=== PATIENT | male | born 1970 | race Caucasian/White ===

== ENCOUNTER 2022-10-17 06:34 | Outpatient (RCR) | payer OTHER, SELFPAY | END 2022-11-10 23:59 | disposition home or self-care (01) | LOC: SPT 06:34 | PROVIDERS: Visit Provider Family Medicine | DX: M25.512 Pain in left shoulder (principal) | CPT/HCPCS: 97110; 97162 ==

== ENCOUNTER 2022-11-11 06:00 | Outpatient (RCR) | payer OTHER, SELFPAY | END 2022-11-14 23:59 | disposition home or self-care (01) | LOC: SPT 06:00 | PROVIDERS: Visit Provider Family Medicine | DX: M25.511 Pain in right shoulder (principal) | CPT/HCPCS: 97110 ==

== ENCOUNTER 2023-03-18 13:42 | Emergency (ER) | payer OTHER, SELFPAY ==
[2023-03-18 14:12] VITALS: BP 128/80; PULSE 91; RESP 16; TEMP 36.6; O2SAT 97; BMI 38.9
[2023-03-18 14:55] LABS: Basophils % 0.5 %; Eosinophils # 0.2 10^3/uL (0.0-0.8); Eosinophils % 1.7 %; Hematocrit 49.7 % (37-53); Lymphocytes # 1.8 10^3/uL (0.8-4.8); Lymphocytes % 20.6 %; Mean Corpuscular HGB Conc 33.2 g/dL (30-55); Mean Corpuscular Hemoglobin 30.8 pg (27-33); Mean Corpuscular Volume 92.9 fl (82-101); Mean Platelet Volume 9.3 fL (7.4-10.4); Monocytes # 1.1 10^3/uL (0.2-0.9); Monocytes % 12.2 %; Neutrophils # 5.74 10^3/uL (1.8-7.7); Neutrophils % 64.8 %; Nucleated Red Blood Cells % 0 %; Platelet Count 237 10^3/cmm (157-399); Red Blood Count 5.35 10^6/uL (3.85-5.65); Red Cell Distribution Width 12.4 % (12.1-15.1); White Blood Count 8.85 10^3/uL (3.29-11.43)
[2023-03-18 15:15] LABS: Alanine Aminotransferase 30 U/L (0-41); Albumin Level 4.2 g/dL (3.5-5.2); Alkaline Phosphatase 62 U/L (40-130); Aspartate Amino Transferase 16 U/L (0-40); Blood Urea Nitrogen 17 mg/dL (6-20); Calcium 9.5 mg/dL (8.5-10.5); Carbon Dioxide 26 mmol/L (22-29); Chloride 101 mmol/L (98-107); Creatinine Clr Calc Pharmacy 124.0495; Glucose 79 mg/dL (65-115); Lipase 26 U/L (13-60); Osmolality Calculated 286 mOsm/kg (285-295); Sodium 138 mmol/L (136-145); Total Bilirubin 0.5 mg/dL (0.15-1.2); Total Protein 7.2 g/dL (6.6-8.7)
--- NOTE | 2023-03-18 16:19 | ECG_ITS ---
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 Measurements Intervals [place] Rate: 82 P: 49 SD: 165 QRS: 36 QRSD: 94 T: 46 QT: 366 QTc: 429 Interpretive Statements SINUS RHYTHM NONSPECIFIC T-WAVE ABNORMALITY No previous ECG available for comparison Electronically Signed On 03-18-2023 23:10:40 CLINICAL APPLICATION SPECIALIST by Marcus Mckeon M.D. [id number]
--- NOTE | 2023-03-18 16:23 | W.ED.DIZZY ---
HPI - Dizziness General: Chief Complaint: Dizziness Stated Complaint: nausea and dizzy Time Seen by Provider: 03/18/23 16:07 Source: patient Mode of arrival: ambulatory History of Present Illness: HPI Narrative: 52-year-old male presents emergency room with complaints of dizziness worse when he gets up or moves around better when he Still is quite a bit worse yesterday had a spinning vertiginous sensation. No nausea or vomiting. No difficulty speech swelling no localizing deficits no vision disturbances. He has had problems with dizziness and ear problems in the past. MD elicited complaint: dizziness Pertinent past history: inner ear problems Onset (ago): day(s) Severity: moderate Description: room spinning Associated symptoms: Denies change in hearing, chest pain, chills, cough, diaphoresis, ear discharge, ear pressure, fevers/chills, headache(s), malaise, nausea, nasal congestion, palpitations, rash, short of breath, syncope, tinnitus, vomiting or weakness Associated neuro symptoms: Deny confusion, difficulty speaking, dysphagia, diplopia, extremity weakness, facial numbness, facial weakness, gait changes, numbness in extremities or visual changes Review of Systems Const: Denies: fever(s), chills, malaise or diaphoresis ENMT: Denies: ear discharge, change in hearing, tinnitus or nasal congestion Card: Denies: chest pain, palpitations or syncope Resp: Denies: dyspnea GI: Denies: abdominal pain, nausea, vomiting or dysphagia : Denies: dysuria, urinary frequency or urinary urgency Musc: Denies: neck pain or back pain Skin/Breast: Denies: rash Neuro: Denies: headache(s), numbness in extremities or confusion Physical Exam Const: GENERAL APPEARANCE: cooperative and comfortable ORIENTATION/CONSCIOUSNESS: Yes awake, Yes oriented to person, Yes oriented to place and Yes oriented to time HENMT: COMMON NORMALS: normocephalic, atraumatic and hearing grossly normal bilaterally HEAD & SCALP: normocephalic and atraumatic Resp: COMMON NORMALS: normal respiratory effort, No retractions, No use of accessory muscles and clear to auscultation bilaterally AUSCULTATION: clear to auscultation bilaterally Cardio: COMMON NORMALS: regular rate, regular rhythm and No murmurs present (Cardio) RATE: regular rate RHYTHM: regular rhythm GI: COMMON NORMALS: Soft to palpation and No hepatosplenomegaly present AUSCULTATION: Yes normoactive bowel sounds PALPATION: Yes Soft to palpation, No Tenderness to palpation present (GI), No Guarding due to palpation present (GI) and Yes No hepatosplenomegaly present Extremity: COMMON NORMALS: normal to inspection, capillary refill normal, no clubbing, cyanosis or edema, no calf tenderness and no pedal edema Neuro: SENSORIUM/ORIENTATION: Yes oriented to person, Yes oriented to place and Yes oriented to time Skin: COMMON NORMALS: no rashes or lesions noted GENERAL SKIN EXAM: no rashes or lesions noted Course Vital Signs: Vital signs: Vital Signs Temperature 97.8 F 03/18/23 14:12 Pulse Rate 91 03/18/23 14:12 Respiratory Rate 16 03/18/23 14:12 Blood Pressure 128/80 03/18/23 14:12 Pulse Oximetry 97 03/18/23 14:12 Oxygen Delivery Me thod Room Air 03/18/23 14:12 MDM - Dizziness Medical Decision Making Normal exam with no focal neurologic deficits. He is feeling better after the IV fluids and Ativan we will discharge patient home meclizine use as needed for dizziness if that fails he can use Ativan as needed for persistent follow-up with his primary care doctor to consider further evaluation. Medical Records I reviewed the patient's medical records. Lab Data I reviewed the patient's lab results. 03/18/23 14:45 03/18/23 14:45 Laboratory Results WBC 8.85 10^3/uL (3.29-11.43) 03/18/23 14:45 RBC 5.35 10^6/uL (3.85-5.65) 03/18/23 14:45 Hgb 16.50 g/dL (11.27-16.99) 03/18/23 14:45 Hct 49.7 % (37-53) 03/18/23 14:45 MCV 92.9 fl (82-101) 03/18/23 14:45 MCH 30.8 pg (27-33) 03/18/23 14:45 MCHC 33.2 g/dL (30-55) 03/18/23 14:45 RDW 12.4 % (12.1-15.1) 03/18/23 14:45 Plt Count 237 10^3/cmm (157-399) 03/18/23 14:45 MPV 9.3 fL (7.4-10.4) 03/18/23 14:45 Neut % (Auto) 64.8 % 03/18/23 14:45 Lymph % (Auto) 20.6 % 03/18/23 14:45 [place] % (Auto) 12.2 % 03/18/23 14:45 Eos % (Auto) 1.7 % 03/18/23 14:45 Baso % (Auto) 0.5 % 03/18/23 14:45 Neut # (Auto) 5.74 10^3/uL (1.8-7.7) 03/18/23 14:45 Lymph # (Auto) 1.8 10^3/uL (0.8-4.8) 03/18/23 14:45 [place] # (Auto) 1.1 10^3/uL (0.2-0.9) H 03/18/23 14:45 Eos # (Auto) 0.2 10^3/uL (0.0-0.8) 03/18/23 14:45 Baso # (Auto) 0.0 10^3/uL (0.0-0.1) 03/18/23 14:45 Nucleated RBC % (auto) 0 % 03/18/23 14:45 Nucleated RBCs # 0.0 /100WBC 03/18/23 14:45 Sodium 138 mmol/L (136-145) 03/18/23 14:45 Potassium 4.0 mmol/L (3.5-5.1) 03/18/23 14:45 Chloride 101 mmol/L (98-107) 03/18/23 14:45 Carbon Dioxide 26 mmol/L (22-29) 03/18/23 14:45 Anion Gap 15.0 (5-19) 03/18/23 14:45 BUN 17 mg/dL (6-20) 03/18/23 14:45 Creatinine 0.9 mg/dL (0.7-1.2) 03/18/23 14:45 GFR Calculation 89.0 mL/min (90-130) L 03/18/23 14:45 Glucose 79 mg/dL (65-115) 03/18/23 14:45 Calculated Osmolality 286 mOsm/kg (285-295) 03/18/23 14:45 Calcium 9.5 mg/dL (8.5-10.5) 03/18/23 14:45 Total Bilirubin 0.5 mg/dL (0.15-1.2) 03/18/23 14:45 AST 16 U/L (0-40) 03/18/23 14:45 ALT 30 U/L (0-41) 03/18/23 14:45 Alkaline Phosphatase 62 U/L (40-130) 03/18/23 14:45 Total Protein 7.2 g/dL (6.6-8.7) 03/18/23 14:45 Albumin 4.2 g/dL (3.5-5.2) 03/18/23 14:45 Globulin 3.0 g/dL (1.3-4.6) 03/18/23 14:45 Lipase 26 U/L (13-60) 03/18/23 14:45 No radiology studies performed this visit Discharge Plan Discharge Patient Disposition: Home Clinical Impression: Labyrinthitis Condition: Stable Prescriptions: New meclizine 25 mg tablet 25 mg PO QID PRN (Reason: dizziness) Qty: 20 0RF Ativan 2 mg tablet 2 mg PO Q6H PRN (Reason: dizziness) Qty: 14 0RF No Action atorvastatin 80 mg Tablet 80 mg PO QPM citalopram 40 mg Tablet 40 mg PO DAILY glipizide 10 mg Tablet 10 mg PO BID fexofenadine 180 mg Tablet 180 mg PO DAILY ascorbic acid (vitamin C) 500 mg Tablet 500 mg PO DAILY tamsulosin 0.4 mg Capsule 0.4 mg PO QPM ropinirole 2 mg Tablet 2 mg PO BEDTIME omeprazole 20 mg Capsule,Delayed Release(Dr/Ec) 20 mg PO QAM azelastine 137 mcg (0.1 %) Aerosol,[place] 1 spray INTRANASAL BID lisinopril 40 mg Tablet 20 mg PO DAILY fluticasone propionate 50 mcg/actuation [place],Suspension 2 spray INTRANASAL DAILY Rx Instructions: administer into each nostril ezetimibe 10 mg Tablet 10 mg PO DAILY Cinnamon 500 mg Capsule 500 mg PO DAILY Vitamin D3 25 mcg (1,000 unit) Tablet 25 mcg PO DAILY apple cider vinegar 300 mg Tablet 300 mg PO DAILY alogliptin 25 mg Tablet 25 mg PO DAILY empagliflozin 25 mg Tablet 25 mg PO DAILY magnesium oxide 400 mg magnesium Tablet 400 mg PO DAILY turmeric 400 mg Capsule 400 mg PO DAILY Discharge Orders: Discharge ED (Routine); Ordered 03/18/23 Ordered By: Michael Iqbal Referrals: Aura Mendez MD [Primary Care Provider] - Discharge Diet: Usual diet Discharge Activity: Resume usual activity Patient Instructions: Labyrinthitis (ED), Opioid Safety, Pain Management Activity Restrictions/Additional Instructions: Thank you for choosing [facility] for your healthcare needs today. Please realize this is an emergency room and that we are providing you with a medical screening exam and this may not be complete and all inclusive of all the testing and or work up that you may need to determine your ailment or severity of your illness. It is very important that you follow up as instructed or that you return to the Emergency Department should you have concerns or if your condition changes or worsens in any way. If symptoms persist follow-up with your primary care physician Coding Level of Care Code ED Linseed Oil Press Tender for Vishnu Daugherty
[2023-03-18] MEDS: LORazepam 2 mg Tablet PO (17:17)
[2023-03-18] MEDS: sodium chloride 0.9% 1,000 ML 999 ML IV (17:17)
== END 2023-03-18 18:38 | disposition home or self-care (01) ==
PROVIDERS: Emergency Medicine; Emergency Provider Family Medicine; PCP Family Medicine
DX: H83.09 Labyrinthitis, unspecified ear (principal); Z79.84 Long term (current) use of oral hypoglycemic drugs
CPT/HCPCS: 36415; 80053; 83690; 85025; 93005; 99284; J7030

== ENCOUNTER 2023-12-31 10:20 | Emergency (ER) | payer OTHER, SELFPAY ==
[2023-12-31 10:51] VITALS: BP 137/70; PULSE 108; RESP 18; TEMP 36.8; O2SAT 97; BMI 24.7
--- NOTE | 2023-12-31 16:57 | CTR_ITS ---
PROCEDURE INFORMATION: Exam: CT Abdomen And Pelvis Without Contrast Exam date and time: 12/31/2023 5:08 PM Age: 53 years old Clinical indication: Abdominal pain; Other: Llq; Additional info: Left lower abd mass TECHNIQUE: Imaging protocol: Computed tomography of the abdomen and pelvis without contrast. Radiation optimization: All CT scans at this facility use at least one of these dose optimization techniques: automated exposure control; mA and/or kV adjustment per patient size (includes targeted exams where dose is matched to clinical indication); or iterative reconstruction. COMPARISON: No relevant prior studies available. RADIATION DOSE METRICS: Total DLP (mGy-cm): 1552.66 FINDINGS: Lungs: The lung bases are clear. Heart: Heart size is within normal limits. There is no pericardial effusion or pericardial thickening. Diaphragm: Mild elevation of the left hemidiaphragm. Liver: There is diffuse decreased attenuation of the hepatic parenchyma consistent with fatty infiltration. Areas of sparing are noted. The liver is otherwise normal. There are no hepatic masses identified. Gallbladder and biliary ducts: The gallbladder is contracted. There is no ductal dilatation. Pancreas: The pancreas is normal. Spleen: The spleen is normal. Adrenal glands: The adrenal glands are normal. Kidneys and ureters: Punctate nonobstructing right upper pole renal calculus. Punctate left mid renal calculus. No other renal calcifications are seen. There is no hydronephrosis. Stomach and bowel: Mild colonic diverticulosis without diverticulitis. There is no large or small bowel obstruction. There is no evidence of bowel wall thickening. Appendix: A normal appendix is identified. Intraperitoneal space: No inflammatory changes are identified. There is no free fluid or fluid collection seen. There is no pneumoperitoneum. Vasculature: The aorta is normal in course and caliber. No significant atherosclerotic calcifications are present. Lymph nodes: No enlarged lymph nodes are identified. Urinary bladder: The bladder is unremarkable. Reproductive: The prostate is grossly unremarkable. Bones/joints: No acute osseous abnormalities are seen. Soft tissues: [id number]-[id number] left inguinal hernia containing fat and a short segment of proximal sigmoid colon. No inflammatory changes or fluid within the hernia sac. Small right inguinal hernia containing only fat. Tiny periumbilical hernia containing only fat. CT/CT abdomen pelvis wo con [id number] IMPRESSION: 1. [id number] left inguinal hernia containing fat and a short segment of proximal sigmoid colon. No inflammatory changes or fluid within the hernia sac. 2. No acute intra-abdominal or pelvic process. 3. Other nonemergent findings above.
--- NOTE | 2023-12-31 16:58 | ED_ITS ---
HPI - Male Genitourinary General: Chief complaint: Urogenital-Male Stated complaint: groin pain Time Seen by Provider: 12/31/23 16:46 Source: patient and family Mode of arrival: ambulatory Limitations: no limitations History of Present Illness: This patient was directed to the emergency department from the [place] clinic. He presented there initially today because of a intermittent left lower abdominal d iscomfort that has been intermittently present for approximately 3 weeks. He was evaluated and referred to the emergency department. As noted he has left lower quadrant abdominal pain and sometimes he feels like there is a knot in the region that comes and goes. He does not not give any history of an inciting event such as lifting twisting turning bending exercises etc. He says that his urine habits and his bowel habits have not been affected. He states that sometimes coughing makes his discomfort worse. He denies any prior abdominal surgeries. He denies any blood in his stools black tarry stools. He denies any history of kidney stones pain in his scrotum pain in his testes etc. No urethral discharge. Otherwise he takes all his usual prescribed medicines. He has not had any fevers or chills nausea vomiting or diarrhea. Associated symptoms: Deny dysuria, nausea or vomiting Related Data Home Medications Medication Instructions Recorded Confirmed alogliptin 25 mg tablet 25 mg PO DAILY 03/18/23 03/18/23 apple cider vinegar 300 mg tablet 300 mg PO DAILY 03/18/23 03/18/23 ascorbic acid (vitamin C) 500 mg 500 mg PO DAILY 03/18/23 03/18/23 tablet atorvastatin 80 mg tablet 80 mg PO QPM 03/18/23 03/18/23 azelastine 137 mcg (0.1 %) nasal 1 spray intranasal BID 03/18/23 03/18/23 spray cholecalciferol (vitamin D3) 25 25 mcg PO DAILY 03/18/23 03/18/23 mcg (1,000 unit) tablet (Vitamin D3) cinnamon bark 500 mg capsule 500 mg PO DAILY 03/18/23 03/18/23 (Cinnamon) citalopram 40 mg tablet 40 mg PO DAILY 03/18/23 03/18/23 empagliflozin 25 mg tablet 25 mg PO DAILY 03/18/23 03/18/23 ezetimibe 10 mg tablet 10 mg PO DAILY 03/18/23 03/18/23 fexofenadine 180 mg tablet 180 mg PO DAILY 03/18/23 03/18/23 fluticasone propionate 50 2 spray intranasal DAILY 03/18/23 03/18/23 mcg/actuation nasal spray,suspension glipizide 10 mg tablet 10 mg PO BID 03/18/23 03/18/23 lisinopril 40 mg tablet 20 mg PO DAILY 03/18/23 03/18/23 magnesium oxide 400 mg PO DAILY 03/18/23 03/18/23 omeprazole 20 mg capsule,delayed 20 mg PO QAM 03/18/23 03/18/23 release ropinirole 2 mg tablet 2 mg PO BEDTIME 03/18/23 03/18/23 tamsulosin 0.4 mg capsule 0.4 mg PO QPM 03/18/23 03/18/23 turmeric 400 mg capsule 400 mg PO DAILY 03/18/23 03/18/23 Previous Rx's Medication Instructions Recorded lorazepam 2 mg tablet (Ativan) 2 mg PO Q6H PRN dizziness #14 tabs 03/18/23 meclizine 25 mg tablet 25 mg PO QID PRN dizziness #20 tabs 03/18/23 Allergies Allergy/AdvReac Type Severity Reaction Status Date / Time Penicillins Allergy ALGY-Anaphy Verified 03/18/23 14:12 laxis Review of Systems General: Reports: 10 or more systems reviewed and unremarkable except in HPI and below GI: Denies: nausea, vomiting or diarrhea : Denies: flank pain, difficulty urinating, dysuria, urinary frequency, testicular pain, testicular mass or scrotal swelling Physical Exam Narrative: EXAM NARRATIVE: He is alert makes good eye contact appears to be comfortable and interactive. Const: COMMON NORMALS: no acute distress and patient oriented x3 GENERAL APPEARANCE: cooperative and comfortable NUTRITIONAL APPEARANCE: overweight HENMT: COMMON NORMALS: Normal nasal mucous membranes and turbinates present and moist oral mucous membranes NOSE: Normal nasal mucous membranes and turbinates present Eye: COMMON NORMALS: Equal, round and reactive pupils present PUPIL: Yes Equal, round and reactive pupils present Neck/C-Spine: COMMON NORMALS: full ROM Resp: COMMON NORMALS: normal respiratory effort and No use of accessory muscles EFFORT & INSPECTION: Yes able to speak in complete sentences Cardio: COMMON NORMALS: Peripheral pulses 2+ throughout PERIPHERAL PULSES: Peripheral pulses 2+ throughout GI: COMMON NORMALS: Normal to inspection, nondistended, normoactive bowel sounds present and Soft to palpation INSPECTION: Yes central obesity PALPATION: Yes Soft to palpation OTHER: Examination of the abdomen reveals generally soft abdomen. He does have some area in the left lower quadrant superior to the inguinal ligament which is tender to palpation and appears to be more melton in the standing position then in the supine position. Examination of his scrotum reveals no evidence of scrotal mass, testicular discomfort enlargement etc. : COMMON NORMALS: Yes no CVA tenderness BLADDER/KIDNEY EXAM: Yes no CVA tenderness Back/Pelvis: COMMON NORMALS: no CVA tenderness, thoracic and lumbar spine normal to inspection, no thoracic nor lumbar tenderness and thoraco-lumbar ROM normal Extremity: COMMON NORMALS: normal to inspection and full ROM Neuro: COMMON NORMALS: patient oriented x3, moves all extremities and no focal motor deficits Skin: COMMON NORMALS: no rashes or lesions noted and no wounds GENERAL SKIN EXAM: no rashes or lesions noted Course Reevaluation(s): Reevaluation #1: Patient remained stable. I informed both he and his spouse of imaging findings that supported the clinical diagnosis of a inguinal hernia. Discussed surgical follow-up tomorrow and likely surgical correction. Also discussed return precautions. Time: 18:23 Consultations: Consultation #1: Discussed with Dr. Pires regarding this presentation current findings and follow-up Time: 18:26 Vital Signs: Vital signs: Vital Signs Temperature 98.2 F 12/31/23 10:51 Pulse Rate 99 12/31/23 17:56 Respiratory Rate 18 12/31/23 10:51 Blood Pressure 124/91 12/31/23 17:56 Pulse Oximetry 92 12/31/23 17:56 Oxygen Delivery Me thod Room Air 12/31/23 10:51 MDM - Male Medical Decision Making Patient was referred to the emergency department as noted in the history of present illness. Clinical examination revealed abdominal findings suggestive of possible left inguinal hernia clinically. Imaging was obtained which confirmed that diagnosis without any evidence of incarceration or entrapment or other concerning findings that would necessitate immediate surgical consultation. The case was reviewed with general surgery on-call who will see the patient in clinic tomorrow and discuss potential therapies. It was all shared with the patient and spouse who voiced understanding. Again no evidence at this time of bowel obstruction or other intra-abdominal pathology. Lab Data I reviewed the patient's lab results. Radiology Impressions Abdomen/Pelvis CT 12/31/23 16:57 IMPRESSION: 1. [id number] left inguinal hernia containing fat and a short segment of proximal sigmoid colon. No inflammatory changes or fluid within the hernia sac. 2. No acute intra-abdominal or pelvic process. 3. Other nonemergent findings above. Laboratory Results Urine Color Yellow (Yellow) 12/31/23 17:30 Urine Appearance Clear (CLEAR) 12/31/23 17:30 Urine pH 5.5 (5-7) 12/31/23 17:30 Ur Specific [place] 1.040 (1.005-1.030) H 12/31/23 17:30 Urine Protein Negative (Negative) 12/31/23 17:30 Urine Glucose (UA) 3+ (Normal) H 12/31/23 17:30 Urine Ketones 1+ (Negative) H 12/31/23 17:30 Urine Blood Negative (Negative) 12/31/23 17:30 Urine Nitrate Negative (Negative) 12/31/23 17:30 Urine Bilirubin Negative (Negative) 12/31/23 17:30 Urine Urobilinogen 0.2 mg/dL (Negative) 12/31/23 17:30 Ur Leukocyte Esterase Negative (Negative) 12/31/23 17:30 Urine RBC 0-2 /hpf (0-2) 12/31/23 17:30 Urine WBC 0-5 /hpf (0-5) 12/31/23 17:30 Ur Squamous Epith Cells 0-5 /hpf (0-5) 12/31/23 17:30 Amorphous Sediment Not Reportable 12/31/23 17:30 Urine Bacteria None seen /hpf (NONE) 12/31/23 17:30 Hyaline Casts 0-4 /lpf H 12/31/23 17:30 All radiology interpretation(s) finalized by discharge Discharge Plan Discharge Patient Disposition: Home Clinical Impression: Inguinal hernia Qualifiers: Obstruction and gangrene presence: without obstruction or gangrene Laterality: unilateral Recurrence: non-recurrent Qualified Code(s): K40.90 - Unilateral inguinal hernia, without obstruction or gangrene, not specified as recurrent Condition: Stable Prescriptions: No Action atorvastatin 80 mg Tablet 80 mg PO QPM citalopram 40 mg Tablet 40 mg PO DAILY glipizide 10 mg Tablet 10 mg PO BID fexofenadine 180 mg Tablet 180 mg PO DAILY ascorbic acid (vitamin C) 500 mg Tablet 500 mg PO DAILY tamsulosin 0.4 mg Capsule 0.4 mg PO QPM ropinirole 2 mg Tablet 2 mg PO BEDTIME omeprazole 20 mg Capsule,Delayed Release(Dr/Ec) 20 mg PO QAM azelastine 137 mcg (0.1 %) Aerosol,[place] 1 spray INTRANASAL BID lisinopril 40 mg Tablet 20 mg PO DAILY fluticasone propionate 50 mcg/actuation [place],Suspension 2 spray INTRANASAL DAILY Rx Instructions: administer into each nostril ezetimibe 10 mg Tablet 10 mg PO DAILY Cinnamon 500 mg Capsule 500 mg PO DAILY Vitamin D3 25 mcg (1,000 unit) Tablet 25 mcg PO DAILY apple cider vinegar 300 mg Tablet 300 mg PO DAILY alogliptin 25 mg Tablet 25 mg PO DAILY empagliflozin 25 mg Tablet 25 mg PO DAILY magnesium oxide 400 mg magnesium Tablet 400 mg PO DAILY turmeric 400 mg Capsule 400 mg PO DAILY meclizine 25 mg tablet 25 mg PO QID PRN (Reason: dizziness) Qty: 20 0RF Ativan 2 mg tablet 2 mg PO Q6H PRN (Reason: dizziness) Qty: 14 0RF Discharge Orders: Discharge ED (Routine); Ordered 12/31/23 Ordered By: Franck Hollingsworth Referrals: Aura Mendez MD [Primary Care Provider] - Praveen Pires MD [Physician] - 01/01/24 (call office in am ) Discharge Diet: Usual diet Discharge Activity: Limit activity as instructed Patient Instructions: Opioid Safety, Pain Management Activity Restrictions/Additional Instructions: Call Dr. Pires's office in the morning at [phone] to arrange a appointment time for tomorrow to see Dr. Pires to discuss your care. If you develop any new or worsening symptoms at any time return to this or the nearest emergency department. Coding Level of Care Code ED Customer Support Representative for Vishnu Daugherty
[2023-12-31 17:39] LABS: Bilirubin Urine Negative (Negative); Blood Urine Negative (Negative); Glucose Urine UA 3+ (Normal); Ketones Urine 1+ (Negative); Leukocyte Esterase Urine Negative (Negative); Nitrate Urine Negative (Negative); Protein Urine Negative (Negative); Urine Appearance Clear (CLEAR); Urine Color Yellow (Yellow); Urobilinogen Urine 0.2 mg/dL (Negative); pH Urine 5.5 (5-7)
[2023-12-31 17:42] LABS: Add Urine Microscopic? YES; Bacteria Urine None Seen /hpf; Hyaline Casts Urine 0-4 /lpf; RBC Urine 0-2 /hpf (0-2); Squamous Epithelial Cell Urine 0-5 /hpf (0-5); WBC Urine 0-5 /hpf (0-5)
[2023-12-31 17:48] LABS: Add Urine Culture? No
[2023-12-31 17:56] VITALS: BP 124/91; PULSE 99; O2SAT 92
[2023-12-31 18:33] VITALS: BP 124/91; PULSE 104; O2SAT 94
== END 2023-12-31 18:34 | disposition home or self-care (01) ==
PROVIDERS: Emergency Provider Emergency Medicine; PCP Family Medicine
DX: K40.90 Unilateral inguinal hernia, without obstruction or gangrene, not specified as recurrent (principal)
CPT/HCPCS: 74176; 81001; 99284

== ENCOUNTER → 2024-01-07 07:46 | Outpatient (BNVA) | payer OTHER, SELFPAY | PROVIDERS: PCP Family Medicine; Referring Provider Emergency Medicine; Visit Provider Student in an Organized Health Care Education/Training Program | DX: K40.90 Unilateral inguinal hernia, without obstruction or gangrene, not specified as recurrent (principal); K43.2 Incisional hernia without obstruction or gangrene | CPT/HCPCS: 99204 ==

== ENCOUNTER 2024-02-19 07:36 | Day surgery (SDC) | payer OTHER, SELFPAY ==
[2024-02-19] VITALS (10 sets, daily range): BP systolic 118–152; BP diastolic 80–110; PULSE 89–100; RESP 16–18; TEMP 36.2–36.8; O2SAT 92–96; BMI 39.1
--- NOTE | 2024-02-19 07:56 | W.PM.OPSFHP ---
Same Day Surgery H&P Indication for Procedure/HPI DATE OF PROCEDURE: February 19, 2024 CHIEF COMPLAINT/INDICATIONFOR SURGICAL PROCEDURE: symptomatic left inguinal hernia PREOP DIAGNOSIS: left inguinal hernia PLANNED PROCEDURE: Operation Date: 02/19/24 09:30 Proposed Procedures p Open Inguinal Hernia Repair with Mesh [id number], K40.90(Left) - Praveen Pires MD Medications/Allergies* Home Medications Medication Instructions Recorded Confirmed Type apple cider vinegar 300 mg tablet 300 mg PO DAILY 03/18/23 01/07/24 History ascorbic acid (vitamin C) 500 mg 500 mg PO DAILY 03/18/23 01/07/24 History tablet atorvastatin 80 mg tablet 80 mg PO QPM 03/18/23 01/07/24 History azelastine 137 mcg (0.1 %) nasal 1 spray intranasal BID 03/18/23 01/07/24 History spray cholecalciferol (vitamin D3) 25 25 mcg PO DAILY 03/18/23 01/07/24 History mcg (1,000 unit) tablet (Vitamin D3) cinnamon bark 500 mg capsule 500 mg PO DAILY 03/18/23 01/07/24 History (Cinnamon) citalopram 40 mg tablet 40 mg PO DAILY 03/18/23 01/07/24 History empagliflozin 25 mg tablet 25 mg PO DAILY 03/18/23 01/07/24 History ezetimibe 10 mg tablet 10 mg PO DAILY 03/18/23 01/07/24 History fexofenadine 180 mg tablet 180 mg PO DAILY 03/18/23 01/07/24 History fluticasone propionate 50 2 spray intranasal DAILY 03/18/23 01/07/24 History mcg/actuation nasal spray,suspension glipizide 10 mg tablet 10 mg PO BID 03/18/23 01/07/24 History lisinopril 40 mg tablet 20 mg PO DAILY 03/18/23 01/07/24 History magnesium oxide 400 mg PO DAILY 03/18/23 01/07/24 History omeprazole 20 mg capsule,delayed 20 mg PO QAM 03/18/23 01/07/24 History release ropinirole 2 mg tablet 2 mg PO BEDTIME 03/18/23 01/07/24 History tamsulosin 0.4 mg capsule 0.4 mg PO QPM 03/18/23 01/07/24 History turmeric 400 mg capsule 400 mg PO DAILY 03/18/23 01/07/24 History semaglutide 0.25 mg or 0.5 mg (2 mg SUBCUT .1x a week 01/07/24 01/07/24 History mg/3 mL) subcutaneous pen injector (Ozempic) Allergies/Adverse Reactions Allergy/AdvReac Type Severity Reaction Status Date / Time Penicillins Allergy ALGY-Anaphy Verified 02/19/24 07:45 laxis Pertinent History/Comorbid Conditions* Family History (Updated 01/07/24 @ 08:17 by ANTWAN Schmidt) Cancer Mother skin Father Social History Smoking and tobacco/nicotine status: never used tobacco/nicotine Alcohol intake: current Alcohol intake frequency: holidays/special occasions only Pertinent Exam Findings alert, oriented x 3, clear to auscultation bilaterally, operative site marked and procedure specific exam findings Abdomen soft, nt, nd Recommendations Surgery/Procedure today Coding Level of Care Code Acute Code for Chg Dat
[2024-02-19] MEDS: sodium chloride 0.9% 1,000 ML 30 ML IV (08:15)
--- NOTE | 2024-02-19 09:02 | P.ANESASSM_ITS ---
Pre-Anesthetic Assessment Height/Weight: Height 1.75 m Weight 120.202 kg Temp Pulse Resp BP Pulse Ox O2 Del Method 98.2 F 100 18 139/94 96 Room Air 02/19/24 08:03 02/19/24 08:03 02/19/24 08:03 02/19/24 08:03 02/19/24 08:03 02/19/24 08:04 Preop Diagnosis: left inguinal hernia Operation Date: 02/19/24 09:30 Proposed Procedures p Open Inguinal Hernia Repair with Mesh [id number], K40.90(Left) - Praveen Pires MD Familial anesthetic complications: none Was Beta Shay taken within 24 hours: N/A Was Clonidine taken within 24 hours: N/A Last intake: Intake Last Liquid Date 02/18/24 Last Liquid Time 22:20 Last Solid Date 02/18/24 Last Solid Time 19:00 Social No alcohol and No tobacco Exam alert, oriented x 3, clear to auscultation bilaterally and regular rate & rhythm Airway Submandibular: within normal limits Cervical ROM: within normal limits Mallampati: Class II Dentition: full CV/HEM Hypertension GI Gastroesophageal Reflux Disease Metabolic Hyperlipidemia and Morbid Obesity Anesthetic Plan ASA status: 3 Anesthesia: General Medications/Allergies Home Medications Medication Instructions Recorded Confirmed Last Taken Type apple cider vinegar 300 mg tablet 300 mg PO DAILY 03/18/23 01/07/24 03/18/23 History ascorbic acid (vitamin C) 500 mg 500 mg PO DAILY 03/18/23 02/19/24 02/18/24 History tablet atorvastatin 80 mg tablet 80 mg PO QPM 03/18/23 02/19/24 02/17/24 History azelastine 137 mcg (0.1 %) nasal 1 spray intranasal BID 03/18/23 02/19/24 03/18/23 History spray cholecalciferol (vitamin D3) 25 25 mcg PO DAILY 03/18/23 02/19/24 02/18/24 History mcg (1,000 unit) tablet (Vitamin D3) citalopram 40 mg tablet 40 mg PO DAILY 03/18/23 02/19/24 02/18/24 History empagliflozin 25 mg tablet 25 mg PO DAILY 03/18/23 02/19/24 02/18/24 History ezetimibe 10 mg tablet 10 mg PO DAILY 03/18/23 02/19/24 02/18/24 History fexofenadine 180 mg tablet 180 mg PO DAILY 03/18/23 02/19/24 02/18/24 History fluticasone propionate 50 2 spray intranasal DAILY 03/18/23 02/19/24 03/18/23 History mcg/actuation nasal spray,suspension lisinopril 40 mg tablet 20 mg PO DAILY 03/18/23 02/19/24 02/18/24 History lorazepam 2 mg tablet (Ativan) 2 mg PO Q6H PRN dizziness #14 tabs 03/18/23 0 02/19/24 Unknown Rx magnesium oxide 400 mg PO DAILY 03/18/23 02/19/24 02/17/24 History omeprazole 20 mg capsule,delayed 20 mg PO QAM 03/18/23 02/19/24 02/18/24 History release ropinirole 2 mg tablet 2 mg PO BEDTIME 03/18/23 02/19/24 02/17/24 History tamsulosin 0.4 mg capsule 0.4 mg PO QPM 03/18/23 02/19/24 02/17/24 History turmeric 400 mg capsule 400 mg PO DAILY 03/18/23 02/19/24 02/17/24 History semaglutide 0.25 mg or 0.5 mg (2 mg SUBCUT .1x a week 01/07/24 01/07/24 02/08/24 History mg/3 mL) subcutaneous pen injector (Ozempic) glimepiride 4 mg tablet 8 mg PO QAM 02/19/24 02/19/24 02/18/24 History Allergies Allergy/AdvReac Type Severity Reaction Status Date / Time Penicillins Allergy ALGY-Anaphy Verified 02/19/24 07:45 laxis Current Medications Generic Name Dose Route Start Last Admin Trade Name Freq PRN Reason Stop Dose Admin Sodium Chloride 1,000 mls @ 30 mls/hr 02/19/24 07:45 02/19/24 08:15 Sodium Chloride 0.9% IV 02/20/24 07:44 30 mls/hr .Q24H NATALIE Administration PFSH Anesthesia Family History (Updated 01/07/24 @ 08:17 by ANTWAN Schmidt) Mother Cancer skin Father Cancer Social History (Updated 01/07/24 @ 08:16 by Yesenia Harrill, CT) Smoking and tobacco/nicotine status: never used tobacco/nicotine Alcohol intake: current Alcohol intake frequency: holidays/special occasions only Data Anesthesia Cardiac Studies: No Data to Display
[2024-02-19 09:04] LABS: Glucose Point of Care 123 mg/dL (70-110)
[2024-02-19] MEDS: ceFAZolin 3,000 MG in sodium chloride 0.9% (plus) 100 ML 200 MG IV (09:23)
[2024-02-19] MEDS: lidocaine-epi 1% 20 mL INJ INJECTION (09:57)
[2024-02-19] MEDS: BUPivacaine 0.25% INJ 10 mL INJECTION (09:57)
--- NOTE | 2024-02-19 10:58 | PM.OP ---
Operative Report Date of procedure: February 19, 2024 Pre-op diagnosis: Symptomatic left inguinal hernia Post-op diagnosis: same Post-op findings: Large hernia sac contains a long segment of sigmoid colon. Sac is densely adhered to testicle, bladder, penis. Hernia repair aborted. Procedure done: Attempted left inguinal hernia repair. Implants: None Specimens removed/disposition: None Pathology: none sent Surgeon: Praveen Pires MD Service Order Dispatcher: N/A Anesthesia: MAC and Local Estimated blood loss (mL): 10 Complications: None Findings: Large hernia sac contains a long segment of sigmoid colon. Sac is densely adhered to testicle, bladder, penis. Hernia repair aborted. Brief History: 53-year-old male who presented with a large inguinal hernia. Hernia sac contains a large segment of sigmoid colon. Discussed risk and benefits of proceeding with left inguinal hernia repair with mesh and patient agreed to proceed. Intraoperatively the hernia sac was found to be densely adhered to the testicle, bladder, penis. Given that there is no urologist to assist with dissection procedure was aborted to avoid iatrogenic injury to any of the structures. This plan was discussed with the spouse and she agreed with aborting the procedure and getting a referral for definitive left inguinal hernia repair in [place] where a urologist is able to assist if needed. Procedure: Patient was brought into the operating table. Patient was laid supine. Preoperative Ancef was administered. MAC was induced. A Merrtit catheter was placed without any complications. The abdomen and left groin was prepped and draped in the usual sterile fashion. An incision along the left inguinal canal was carried out about 7 cm. Tissue dissection was carried down through the subcutaneous tissues and through a thin layer of external oblique muscle. I then proceeded to dissect the hernia sac with combination of blunt and sharp dissection. The hernia sac was found to be densely adhered to the testicle as well as the bladder and penis. At this point, I decided to discuss the intraoperative findings with the patient's spouse. My concern is that there is no urologist in our facility to assist with the dissection and/or repair of the structures if these get injured in the process of dissecting the hernia sac. I proposed to the spouse that we abort the hernia repair and seek definitive repair and higher level of care with urology support. Patient and spouse agreed with this plan. I returned to the operating room and obtained adequate hemostasis using electrocautery. I then proceeded to close the wound in multiple layers using 3-0 Vicryl and the skin was closed using 4-0 Monocryl and surgical glue. An island dressing was applied. I confirmed that the Merritt output was nonbloody before removing it. The patient will cover anesthesia without any complications and was transferred to PACU
--- NOTE | 2024-02-19 12:54 | SUR.PHASEII ---
Patient was instructed by Dr Pires to urinate prior to discharge. Patient has attempted twice with no results and is trying again.
--- NOTE | 2024-02-19 13:30 | ANE.PACU2 ---
Inpatient post-anesthesia follow up: Airway intact: Yes Vital signs: Temperature 97.6 F Pulse Rate 95 Respiratory Rate 17 Blood Pressure 118/80 Pulse Oximetry 92 Oxygen Delivery Me thod Room Air Oxygen Flow Rate Fraction of Inspir ed Oxygen Hydration adequate: Yes Nausea and vomiting: No Pain level: 3 Mental status: Baseline
== END 2024-02-19 13:02 | disposition home or self-care (01) ==
PROVIDERS: PCP Family Medicine; Visit Provider Student in an Organized Health Care Education/Training Program
PROC: (CPT 49507; principal; 2024-02-19 09:20)
DX: K40.30 Unilateral inguinal hernia, with obstruction, without gangrene, not specified as recurrent (principal); K66.0 Peritoneal adhesions (postprocedural) (postinfection); Z53.8 Procedure and treatment not carried out for other reasons; I10 Essential (primary) hypertension; K21.9 Gastro-esophageal reflux disease without esophagitis; E78.5 Hyperlipidemia, unspecified; E66.01 Morbid (severe) obesity due to excess calories; Z68.39 Body mass index [BMI] 39.0-39.9, adult
CPT/HCPCS: 49507; 36416; 51702; 82962; J0690; J1100; J1200; J2405; J2704; J3010; J3490; J7030

== ENCOUNTER → 2024-03-06 10:06 | Outpatient (BNVA) | payer OTHER, SELFPAY | PROVIDERS: PCP Family Medicine; Visit Provider Student in an Organized Health Care Education/Training Program | DX: Z98.890 Other specified postprocedural states (principal) | CPT/HCPCS: 99024 ==

== ENCOUNTER 2024-09-25 09:51 | Emergency (ER) | payer OTHER, SELFPAY ==
--- OUTSIDE RECORDS SUMMARY | 2023-10-01 04:00 | XMS_ITS | Encounter Summary ---
Author Name [facility] Organization [facility] [place] Address [address] [place] [address] Care Team Providers Care Farm Service Adviser Name Role Phone ESAU GALDAMEZ Primary Care Provider Unavailabl e Insurance Providers: All historical and current Section Date Range: From patient's date of to the date document was created. This section includes the names of all active insurance providers for the patient. Insurance Provider Type of Coverage Plan Name Start of Policy Coverage End of Policy Coverage Group Number Member ID Insurance Provider's Telephone Number Policy Garcia's Name Patient's Relationship to Policy Garcia [employer]IG[employer] HIGH DEDUCTIBL E HEALTH PLAN W/HEALTH SAVINGS ACCOUNT R.P. LUMBE R [facility] Feb 12, 2024 [facility] [id number] [phone] LOBO SCHULTE PATIENT [employer]IGNA BEHAVIORAL HEALTH MENTAL HEALTH R.P. LUMBE R [facility] Feb 12, 2024 [facility] [id number] LOBO SCHULTE PATIENT MEDIMPACT RX PRESCRIPT ION RX PLAN [facility] Feb 12, 2024 [facility] [id number] [phone] LOBO SCHULTE PATIENT MEDIMPACT RX PRESCRIPT ION RX PLAN [facility] Feb 12, 2024 [facility] [id number] [phone] LOBO SCHULTE PATIENT PRIME THERAPEUTI CS RX PRESCRIPT ION RX PLAN Feb 11, 2019 [facility] [id number] [phone] LOBO SCHULTE PATIENT PRIME THERAPEUTI CS RX PRESCRIPT ION HEALT H CARE SERVI CE Mar 14, 2009 [id number] [phone] LOBO SCHULTE PATIENT Selected Encounter This section includes the information on record at OR for the Encounter. 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 Date/Time Primary/Secondary Diagnosis Diagnosis Name Provider Source Oct 09, 2023 10:24 AM PRIMARY Segmental and somatic dysfunction of cervical region DOE GONZALEZ [facility] Oct 09, 2023 10:24 AM SECONDARY Cervicalgia LISADOE E [facility] Oct 09, 2023 10:24 AM SECONDARY Other intervertebral disc degeneration, lumbosacral region DOE GONZALEZ [facility] Oct 09, 2023 10:24 AM SECONDARY Pain in thoracic spine DOE GONZALEZ [facility] Oct 09, 2023 10:24 AM SECONDARY Segmental and somatic dysfunction of lumbar region DOE GONZALEZ [facility] Oct 09, 2023 10:24 AM SECONDARY Segmental and somatic dysfunction of pelvic region DOE GONZALEZ [facility] Oct 09, 2023 10:24 AM SECONDARY Segmental and somatic dysfunction of thoracic region LISADOE [facility] Plan of Treatment: Future Appointments (+ 6 months) and Future Tests (+/- 45 days) The Plan of Treatment section includes future care activities for the patient from all OR treatmentfacilities. This section includes future appointments and future orders which are active, pending or scheduled. Future Appointments This section includes appointments that were scheduled to occur 6 months from the date of the Encounter, up to a maximum of 20 appointments. The data comes from all [place] treatment facilities. Appointment Date/Time Appointment Type Appointme nt Facility Name Oct 04, 2023 09:45 AM [facility] Oct 15, 2023 08:20 AM [facility] Oct 17, 2023 09:00 AM [facility] Oct 21, 2023 08:30 AM [facility] Oct 29, 2023 08:00 AM [facility] Oct 29, 2023 08:01 AM [facility] Nov 13, 2023 08:00 AM [facility] Nov 26, 2023 02:40 PM [facility] Dec 10, 2023 11:20 AM [facility] Dec 19, 2023 08:00 AM [facility] Dec 31, 2023 09:30 AM [facility] Dec 31, 2023 12:00 PM [facility] [place] [facility] Jan 07, 2024 08:20 AM [facility] [place] [facility] Jan 14, 2024 08:20 AM [facility] Jan 14, 2024 08:40 AM [facility] Jan 28, 2024 08:20 AM [facility] - MED[facility]INE [facility] Mar 05, 2024 11:15 AM [facility] [place] [facility] Mar 17, 2024 10:40 AM AMBUL[facility]ORY - MEDICINE [facility] Lab Results: +/- 30 days of the encounter This section includes the Chemistry and Hematology Lab Results on record with OR for the patient. Radiology Reports and Pathology Reports are provided separately, in subsequent sections. Lab Results This section contains the Chemistry/Hematology Results that were resulted 30 days before or 30 daysafter the date of the Encounter. Date/Time Source Result Type Result - Unit Interpretation Reference Range Specimen Type Comment Oct 15, 2023 08:07 AM [facility] HGA1C BLOOD Specimen Type: BLOOD No comment entered. Ordering Provider: ESAU GALDAMEZ Report Released Date/Time: Oct 23, 2022 09:14 AM Reporting Lab: [place] [facility] [address] [place] [address] Performing Lab: [place] [facility] [address] [place] [address] HGA1C 9.3 H 4.0-6.0 Oct 15, 2023 08:07 AM [facility] TSH (MA-PB) SERUM Specimen Typ e: SERUM No comment entered. Ordering Provider: ESAU GALDAMEZ Report Released Date/Time: Oct 23, 2022 09:14 AM Reporting Lab: [place] [facility] [address] [place] [address] Performing Lab: [place] [facility] [address] [place] [address] TSH 1.333 u[IU]/mL 0.47-5 Oct 15, 2023 08:07 AM [facility] CHOLESTEROL PANEL (PB) PLASMA Specimen Type: P LASMA No comment entered. Ordering Provider: ESAU GALDAMEZ Report Released Date/Time: Oct 23, 2022 09:14 AM Reporting Lab: [place] [facility] [address] [place] [address] Performing Lab: [place] [facility] [address] [place] [address] CHOLESTEROL 171 mg/dL 0-200 TRIGLYCERIDE 205 mg/dL H 0-150 CALCULATED LDL 100.4 mg/dL HDL(New) 29.6 mg/dL L >40 HDL % OF TOTAL CHOLESTEROL (PB) 17.3 >25 Oct 15, 2023 08:07 AM [facility] COMPREHENSIVE METABOLIC PANEL PLASMA Specimen Type: PLASMA No comment entered. Ordering Provider: ESAU GALDAMEZ Report Released Date/Time: Oct 23, 2022 09:14 AM Reporting Lab: [place] [facility] [address] [place] [address] Performing Lab: [place] [facility] [address] [place] [address] CREATININE 1.04 mg/dL 0.7-1.3 UREA NITROGEN 14 mg/dL 9-25 GLUCOSE 165 mg/dL H 72-99 SODIUM 135 meq/L L 136-145 POTASSIUM 4.1 meq/L 3.5-5 CHLORIDE 103 meq/L 98-107 CARBON DIOXIDE 21 meq/L L 22-31 CALCIUM 9.1 mg/dL 8.4-10.4 PROTEIN 7.4 g/dL 6-8.6 ALBUMIN 4.4 g/dL 3.4-5 TOTAL BILIRUBIN 0.7 mg/dL 0.2-1.2 ALKALINE PHOSPHATASE 70 U/L 40-150 AST/SGOT 17 U/L 5-34 ALT/SGPT 29 U/L 8-40 EGFR (CKD-EPI 2020) 86 Oct 15, 2023 08:05 AM [facility] URINE ALBUMIN PROFILE-ih (PB) URINE Specimen Type: URINE No comment entered. Ordering Provider: ESAU GALDAMEZ Report Released Date/Time: Oct 23, 2022 09:14 AM Reporting Lab: [place] [facility] [address] [place] [address] Performing Lab: [place] [facility] [address] [place] [address] URINE ALBUMIN (PB-STL) 8.30 mg/L 0-30 uACR (PB-MA) 11.67 ug/mg CREATININE URINE/OTHERS 71.14 mg/dL Oct 15, 2023 08:05 AM [facility] CBC BLOOD Specimen Type: BLOOD No comment entered. Ordering Provider: ESAU GALDAMEZ Report Released Date/Time: Oct 23, 2022 09:14 AM Reporting Lab: [place] [facility] [address] [place] [address] Performing Lab: [place] [facility] [address] [place] [address] WBC 7.3 10*3/uL 3.6-11.2 RBC 5.65 10*6/uL 4.10-5.70 HGB 17.8 g/dL H 13.1-16.8 HCT 51.3 H 38.2-48.4 MCV 90.8 fL 80.0-100.0 MCH 31.5 pg 27.0-34.0 MCHC 34.7 g/dL 33.0-36.0 PLT 230 10*3/uL 150-400 MPV 10.0 fL 7.5-11.2 RDW 12.7 11.8-15.1 LYMPHOCYTES, AUTO % 18.7 MONOCYTES, AUTO % 8.7 NEUTROPHILS, AUTO % 69.1 EOSINOPHILS, AUTO % 2.5 BASOPHILS, AUTO % 0.7 LYMPHOCYTES, ABSOLUTE 1.36 10*3/uL 0.77- 4.50 MONOCYTES, ABSOLUTE 0.63 10*3/uL 0.19-0. 8 NEUTROPHILS, ABSOLUTE 5.03 10*3/uL 2.10- 8.00 EOSINOPHILS, ABSOLUTE 0.18 10*3/uL 0.00- 0.60 BASOPHILS, ABSOLUTE 0.05 10*3/uL 0.00-0. 20 IMMATURE GRANS, AUTO % 0.3 IMMATURE GRANS, AUTO ABS 0.02 10*3/uL 0. 00-0.05 Vital Signs: All taken on the encounter date This section contains inpatient and outpatient Vital Signs collected on the date of the Encounter. Date/Time Temperature Pulse Blood Pressure Respiratory Rate SP02 Pain Height Weight Body Mass Index Source Oct 01, 2023 09:00 AM 98.2 81 142/96 [facility] Social History: Smoking Status (Most current) and Tobacco Use (All prior to encounter date) This section includes the most current, and the historical, smoking and tobacco- related health factors from the OR facility where the Encounter took place. Current Smoking Status This section includes the most current smoking, or tobacco-related health factor, from the OR facility where the Encounter took place. Date/Time Current Smoking Status Comment Facil ity May 30, 2022 01:00 PM OR-TOBACCO QUIT 15 YRS OR MORE [facility] Tobacco Use History This section includes a history of the smoking, or tobacco-related health factors, that were collected on or before the date of the Encounter. The data comes from the OR facility where the Encounter took place. Date/Time Smoking Status/Tobacco Use Comment F acrodney May 30, 2022 01:00 PM OR-TOBACCO QUIT 15 YRS OR MORE [facility] Encounter Notes: All associated encounter notes This section contains the clinical notes associated to the Encounter. Date/Time Encounter Note(s) Provider Source Oct 01, 2023 08:59 AM CHIROPRACTIC NOTE: LOCAL TITLE: CHIROPRACTIC FOLLOW UP NOTE PB STANDARD TITLE: CHIROPRACTIC NOTE DATE OF NOTE: OCT 01, 2023@08:59 ENTRY DATE: OCT 01, 2023@08:59:48 AUTHOR: DOE GONZALEZ COSIGNER: URGENCY: STATUS: COMPLETED CHIROPRACTIC FOLLOW-UP VISIT Patient's language preference for health information: Bur[place]ian Other Communication Methods Needed: SUBJECTIVE: The is a 53 year old MALE being seen in the Chiropractic clinic for follow-up visit. The reports his neck as out and in need of an adjustment, while his back is not too bad. The rates his pain level as a 4/10. PAST MEDICAL HISTORY: see problem list SOCIO-ECONOMIC HISTORY: Tobacco: No Prior Tobacco Use Status Available Alcohol: ____ ALLERGIES/ADVERSE REACTIONS: METFORMIN, PENICILLIN OBJECTIVE: CERVICAL SPINE: MOVEMENT/POSTURE: Upon inspection, observation is unremarkable. PALPATION: Tenderness was present at cervical segments C2 and C5. SEGMENTAL DYFUNCTION: Joint dysfunctions present upon evaluation C spine: C2 and C5. RANGE OF MOTION: AROM of the cervical spine was restricted in all planes of motion. The experience pain with the restricted AROM. LUMBAR/THORACIC SPINE: MOVEMENT/POSTURE: The ambulates without issue. SEGMENTAL DYSFUNCTION: Joint dysfunction was noted in the T spine: T2 and T8, L spine: L5, and at the left SI joint. PALPATION: The following vertebral spinous processes were tender to palpation: T2, T8, L5, and the left PSIS. RANGE OF MOTION: AROM of the lumbar spine was moderately restricted and painful in all planes of motion. REVIEW OF DIAGNOSTIC IMAGING: Date Procedure CPT Status Case # 06/15/2022 MRI SPINE CERVICAL W/O CONT [id number] Verified [id number] 1. Right paracentral herniated disc C6-7 level 2. Small right paracentral herniated disc C4-5 level 3. Asymmetrical bulging/protruding disc to the left C5-6 level 4. Probable bulging disc T2-T3 and T3-4 disc seen in the sagittal images only 5. Degenerative disc disease involving the C2-3 through the T3-4 disc. 6. Degenerative arthritis most significant C6-7 level 7. Degenerative endplate changes C6-7 level 8. Straightening of the normal lordotic curve possibly due to positioning. Muscle and/or ligamentous injury cannot be ruled out ASSESSMENT: Cervical spine, thoracic spine, lumbar spine, and SI joint dysfunction with associated myofascial pain. PLAN: This is the third follow up treatment for the of a planned six treatments. Due to the persistent neck and back pain, we will treat [facility] [place] once every two weeks for six treatments. Prognosis: Fair Today's treatment of the consisted of vibrational massage to relax the paraspinal musculature and chiropractic spinal adjustment of the cervical spine (supine), thoracic spine (prone), and lumbar spine (side posture) using diversified technique and the pelvis (prone) using Isaac technique. The procedure was well tolerated by the . GOALS: The goals of treatment include: 1) The reduction of symptomatology. 2) Instructing the in home exercises to improve cervical flexibility and strength, core strength, and lower extremity and core flexibility. 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 /misha/ [facility] Signed: 10/01/2023 09:10 DOE GONZALEZ
--- OUTSIDE RECORDS SUMMARY | 2023-10-04 04:45 | XMS_ITS | Encounter Summary ---
Author Name [facility] [place] Address [address] [place] [id number] Care Team Providers Care Clinical Pharmacy Manager Name Role Phone AURA MENDEZ Primary Care Provider Unavailabl e Insurance Providers: [...] PLAN W/HEALTH SAVINGS ACCOUNT R.P. LUMBE R [facility] Feb 12, 2024 [facility] [id number] [phone] LOBO SCHULTE PATIENT [employer]IG[employer] BEHAVIORAL HEALTH MENTAL HEALTH R.P. LUMBE R [facility] Feb 12, 2024 [facility] [id number] LOBO SCHULTE PATIENT MEDIMPACT RX PRESCRIPT ION RX PLAN [facility] Feb 12, 2024 [facility] [id number] [phone] LOBO SCHULTE PATIENT MEDIMPACT RX PRESCRIPT ION RX PLAN [facility] Feb 12, 2024 [facility] [id number] [phone] LOBO SCHULTE PATIENT PRIME THERAPEUTI CS RX PRESCRIPT ION RX PLAN Feb 11, 2019 [facility] [id number] [phone] LOBO SCHULTE PATIENT PRIME THERAPEUTI CS RX PRESCRIPT ION [facility] Mar 14, 2009 [id number] [phone] LOBO SCHULTE PATIENT Selected Encounter This section includes the information on record at [place] for the Encounter. Date/Time Encounter Type Encounter Description Reason Provider Source Oct 04, 2023 09:45 AM OFF/OP EST JUNE X REQ PHY/QHP PRIMARY CARE/MEDICINE ICD-10-CM W57.XXXA Bit/stung by nonvenom insect & oth nonvenom arthropods, JUAN CARLOS Chun Cj Encounter Template Text not used by [facility] Assessments - Encounter Diagnoses This section includes the primary and secondary diagnoses documented for the Encounter. Date/Time Primary/Secondary Diagnosis Diagnosis Name Provider Source Oct 11, 2023 12:07 PM PRIMARY Bit/stung by nonvenom insect & oth nonvenom arthropods, KARLA Chun [facility] Plan of Treatment: Future Appointments (+ 6 months) and Future Tests (+/- 45 days) The Plan of Treatment section includes future care activities for the patient from all [place] treatmentfacilities. This section includes future appointments and future orders which are active, pending or scheduled. Future Appointments This section includes appointments that were scheduled to occur 6 months from the date of the Encounter, up to a maximum of 20 appointments. The data comes from all [place] treatment facilities. Appointment Date/Time Appointment Type Appointme nt Facility Name Oct 15, 2023 08:20 AM AMBULATORY - MEDICINE [facility] Oct 17, 2023 09:00 AM AMBULATORY - MEDICINE [facility] Oct 21, 2023 08:30 AM AMBULATORY - MEDICINE [facility] Oct 29, 2023 08:00 AM AMBULATORY - MEDICINE [facility] Oct 29, 2023 08:01 AM [facility] [place] [facility] Nov 13, 2023 08:00 AM AMBULATORY - MEDICINE [facility] Nov 26, 2023 02:40 PM AMBULATORY - MEDICINE [facility] Dec 10, 2023 11:20 AM AMBULATORY - MEDICINE [facility] Dec 19, 2023 08:00 AM AMBULATORY - MEDICINE [facility] Dec 31, 2023 09:30 AM [facility] [place] [facility] Dec 31, 2023 12:00 PM [place] [facility] Jan 07, 2024 08:20 AM [place] [facility] Jan 14, 2024 08:20 AM [facility] [place] [facility] Jan 14, 2024 08:40 AM [facility] [place] [facility] Jan 28, 2024 08:20 AM AMBULATORY - MEDICINE [facility] Mar 05, 2024 11:15 AM [facility] [place] [facility] Mar 17, 2024 10:40 AM AMBULATORY - MEDICINE [facility] Lab Results: +/- 30 days of the encounter This section includes the Chemistry and Hematology Lab Results on record with [place] for the patient. Radiology Reports and Pathology Reports are provided separately, in subsequent sections. Lab Results This section contains the Chemistry/Hematology Results that were resulted 30 days before or 30 daysafter the date of the Encounter. Date/Time Source Result Type Result - Unit Interpretation Reference Range Specimen Type Comment Oct 15, 2023 08:07 AM [facility] HGA1C BLOOD Specimen Type: BLOOD No comment entered. Ordering Provider: AURA MENDEZ Report Released Date/Time: Oct 23, 2022 09:14 AM Reporting Lab: [place] [facility] [address] [place] [address] Performing Lab: [place] [facility] [address] [place] [address] HGA1C 9.3 H 4.0-6.0 Oct 15, 2023 08:07 AM [facility] TSH (MA-PB) SERUM Specimen Typ e: SERUM No comment entered. Ordering Provider: AURA MENDEZ Report Released Date/Time: Oct 23, 2022 09:14 AM Reporting Lab: [place] [facility] [address] [place] [address] Performing Lab: [place] [facility] [address] [place] [address] TSH 1.333 u[IU]/mL 0.47-5 Oct 15, 2023 08:07 AM [facility] CHOLESTEROL PANEL (PB) PLASMA Specimen Type: P LASMA No comment entered. Ordering Provider: AURA MENDEZ Report Released Date/Time: Oct 23, 2022 09:14 AM Reporting Lab: [place] [facility] [address] [place] [address] Performing Lab: [place] [facility] [address] [place] [address] CHOLESTEROL 171 mg/dL 0-200 TRIGLYCERIDE 205 mg/dL H 0-150 CALCULATED LDL 100.4 mg/dL HDL(New) 29.6 mg/dL L >40 HDL % OF TOTAL CHOLESTEROL (PB) 17.3 >25 Oct 15, 2023 08:07 AM [facility] COMPREHENSIVE METABOLIC PANEL PLASMA Specimen Type: PLASMA No comment entered. Ordering Provider: AURA MENDEZ Report Released Date/Time: Oct 23, 2022 09:14 AM Reporting Lab: [place] [facility] [address] [place] [address] Performing Lab: [place] [facility] [address] [place] [address] CREATININE 1.04 mg/dL 0.7-1.3 UREA NITROGEN 14 [...] 2020) 86 Oct 15, 2023 08:05 AM [facility] URINE ALBUMIN PROFILE-ih (PB) URINE Specimen Type: URINE No comment entered. Ordering Provider: AURA MENDEZ Report Released Date/Time: Oct 23, 2022 09:14 AM Reporting Lab: [place] [facility] [address] [place] [address] Performing Lab: [place] [facility] [address] [place] [address] URINE ALBUMIN (PB-STL) 8.30 mg/L 0-30 uACR (PB-MA) 11.67 ug/mg CREATININE URINE/OTHERS 71.14 mg/dL Oct 15, 2023 08:05 AM [facility] CBC BLOOD Specimen Type: BLOOD No comment entered. Ordering Provider: AURA MENDEZ Report Released Date/Time: Oct 23, 2022 09:14 AM Reporting Lab: [place] [facility] [address] [place] [facility] [address] Performing Lab: [place] [facility] [address] [place] [address] WBC 7.3 10*3/uL 3.6-11.2 RBC 5.65 10*6/uL [...] Height Weight Body Mass Index Source Oct 04, 2023 11:08 AM 103 133/89 [facility] Oct 04, 2023 11:07 AM 97.9 95 133/90 19 95 0 271.2 40 [facility] Social History: Smoking Status (Most current) and Tobacco Use (All prior to encounter date) This section includes the most current, and the historical, smoking and tobacco- related health factors from the [place] facility where the Encounter took place. Current Smoking Status This section includes the most current smoking, or tobacco-related health factor, from the [place] facility where the Encounter took place. Date/Time Current Smoking Status Comment Archie ity May 30, 2022 01:00 PM [place]-TOBACCO FORMER USER [facility] Tobacco Use History This section includes a history of the smoking, or tobacco-related health factors, that were collected on or before the date of the Encounter. The data comes from the [place] facility where the Encounter took place. Date/Time Smoking Status/Tobacco Use Comment F acrodney May 30, 2022 01:00 PM [place]-TOBACCO QUIT 15 YRS OR MORE [facility] Encounter Notes: All associated encounter notes This section contains the clinical notes associated to the Encounter. Date/Time Encounter Note(s) Provider Source Oct 04, 2023 10:59 AM NURSING PROGRESS N OTE: LOCAL TITLE: NURSING NOTE PB STANDARD TITLE: NURSING PROGRESS NOTE DATE OF NOTE: OCT 04, 2023@10:59 ENTRY DATE: OCT 04, 2023@10:59:37 AUTHOR: KARLA LOBO COSIGNER: URGENCY: STATUS: COMPLETED This is a 53 year old MALE with known Allergies as noted: METFORMIN, PENICILLIN On the following Active Medications: Active Outpatient Medications (including Supplies): Active Outpatient Medications Status 1) ALCOHOL PREP PAD USE/APPLY PAD TO AFFECTED AREA(S) ACTIVE ONCE A DAY NEEDED FOR SKIN CLEANSING 2) AZELASTINE 137MCG/SPRAY 200D NASAL INHL SPRAY 1 SPRAY ACTIVE IN EACH NOSTRIL TWICE A DAY USE WITH FLUTICASONE NASAL DIRECTED *PRIME BEFORE USE* 3) CITALOPRAM HYDROBROMIDE 40MG TAB TAKE ONE-HALF TABLET ACTIVE BY MOUTH EVERY MORNING FOR DEPRESSION 4) EMPAGLIFLOZIN 25MG TAB TAKE ONE TABLET BY MOUTH ONCE ACTIVE A DAY FOR BLOOD SUGAR CONTROL 5) EZETIMIBE 10MG TAB TAKE ONE TABLET BY MOUTH ONCE A ACTIVE DAY TO LOWER CHOLESTEROL 6) FEXOFENADINE HCL 180MG TAB TAKE ONE TABLET BY MOUTH ACTIVE ONCE A DAY 7) FLUTICASONE PROP 50MCG 120D NASAL INHL INSTILL 2 ACTIVE SPRAYS IN NOSTRIL(S) ONCE A DAY FOR CHRONIC RHINOSINUSITIS (MUST BE USED DIRECTED FOR MINIMUM OF 21 DAYS TO PROVIDE ADEQUATE BENEFITS) 8) LANCET,SOFTCLIX USE LANCET FOR BLOOD TEST TWICE A DAY ACTIVE FOR BLOOD SUGAR MONITORING USE DIRECTED. 9) MAGNESIUM OXIDE 400MG TAB TAKE ONE TABLET BY MOUTH ACTIVE ONCE A DAY FOR DIETARY MAGNESIUM SUPPLEMENTATION 10) OMEPRAZOLE 20MG EC CAP TAKE ONE CAPSULE BY MOUTH ACTIVE EVERY MORNING TO LOWER STOMACH ACID. TAKE 30 MINUTES PRIOR TO FOOD. 11) ROPINIROLE HCL 2MG TAB TAKE ONE TABLET BY MOUTH AT ACTIVE BEDTIME FOR RESTLESS LEG SYNDROME 12) SITAGLIPTIN (EQV-ZITUVIO) 100MG TAB TAKE ONE TABLET ACTIVE BY MOUTH ONCE A DAY FOR DIABETES (REPLACES SAXAGLIPTIN) 13) TAMSULOSIN HCL 0.4MG CAP TAKE ONE CAPSULE BY MOUTH ACTIVE (S) EVERY EVENING FOR BENIGN PROSTATIC HYPERPLASIA APPROXIMATELY 30 MINUTES AFTER THE SAME MEAL EACH DAY Active Non-VA Medications Status 1) Non-VA APPLE CIDER VINEGAR CAP/TAB BY MOUTH ONCE A ACTIVE DAY 2) Non-VA ASCORBIC ACID TAB BY MOUTH ONCE A DAY ACTIVE 3) Non-VA CHOLECALCIF 25MCG (D3-1,000UNIT) TAB 1000UNIT ACTIVE BY MOUTH ONCE A DAY 4) Non-VA CINNAMON CAP/TAB BY MOUTH ONCE A DAY ACTIVE 5) Non-VA TURMERIC CAP/TAB BY MOUTH ACTIVE 18 Total Medications C/C: TICK BITE IN ARM PIT S: The presented to the clinic today with the complaint of tick bite in left armpit. The reports that he found it yesterday but does not know who long it was there. Asked the if there was anything going on with it that is concerning to bring him in today. The reports, it is just very itchy. O/A: The ambulated to the exam room without assistance, gate is steady. The has a tick bite in the left axillary area, there is no visible sign of infection. There is redness which is consistent with site reaction. Vitals were stable today. Vital Signs: as charted. P: Let the know that he could use otc topical Benadryl or hydrocortisone cream as well as Zyrtec and that he could also add in some Pepcid if the Zyrtec is not quite cutting the itching. Also let the know that he could try some apple cider vinegar on a cotton ball to help with the itch. The voiced understanding, is in agreement with the plan and has no further questions or complaints at this time. The ambulated to the exit in satisfactory manner. RTC: as needed /misha/ Karla Lobo RN,BSN [place] Signed: 10/04/2023 11:18 Receipt Acknowledged By: 10/04/2023 11:23 /misha/ Aura Mendez MD [place] [facility] KARLA LOBO [facility]
--- OUTSIDE RECORDS SUMMARY | 2023-10-17 04:00 | XMS_ITS | Encounter Summary ---
Author Name [facility] [place] [facility] [place] Address [address] [place] [address] Care Team Providers Care Cashier Checker Name Role Phone ESAU GALDAMEZ Primary Care [...] PLAN W/HEALTH SAVINGS ACCOUNT R.P. LUMBE R [facility] Feb 12, [facility] [id number] [phone] LOBO SCHULTE PATIENT [employer] BEHAVIORAL HE[employer] MENTAL HEALTH R.P. LUMBE R [facility] Feb 12, 2024 [facility] [id number] LOBO SCHULTE PATIENT MEDIMPACT RX PRESCRIPT ION RX PLAN [facility] Feb 12, 2024 [facility] [id number] [phone] LOBO SCHULTE PATIENT MEDIMPACT RX PRESCRIPT ION RX PLAN [facility] Feb 12, 2024 [facility] [id number] [phone] LOBO SCHULTE PATIENT PRIME THERAPEUTI CS RX PRESCRIPT ION RX PLAN Feb 11, 2019 [facility] [id number] [phone] LOBO SCHULTE PATIENT PRIME THERAPEUTI CS RX PRESCRIPT ION [facility] CARE [facility]I CE Mar 14, 2009 [id number] [phone] LOBO SCHULTE PATIENT Selected Encounter This section includes the information on record at [place] for the Encounter. Date/Time Encounter Type Encounter Description Reason Provider Source Oct 17, 2023 09:00 AM CHIROPRACT MANJ 3-4 [facility] [employer] [facility] ICD-10-CM M99.01 Segmental and somatic dysfunction of cervical region DOE GONZALEZ MONICA Encounter Template Text not used by [place] Assessments - Encounter Diagnoses This section includes the primary and secondary diagnoses documented for the Encounter. Date/Time Primary/Secondary Diagnosis Diagnosis Name Provider Source Oct 28, 2023 09:52 AM PRIMARY Segmental and somatic dysfunction of cervical region [facility] [facility] Oct 28, 2023 09:52 AM SECONDARY Cervicalgia DOE GONZALEZ [place] [facility] Oct 28, 2023 09:52 AM SECONDARY Other intervertebral disc degeneration, lumbosacral region [facility] [place] [facility] Oct 28, 2023 09:52 AM SECONDARY Pain in thoracic spine LISADOE Corona [place] [facility] Oct 28, 2023 09:52 AM SECONDARY Segmental and somatic dysfunction of lumbar region LISADOE Corona [place] [facility] Oct 28, 2023 09:52 AM SECONDARY Segmental and somatic dysfunction of pelvic region [facility]ANE[facility]MIAHDOE [place] [facility] Oct 28, 2023 09:52 AM SECONDARY Segmental and somatic dysfunction of thoracic region DOE GONZALEZ Cj [place] [facility] Plan of Treatment: Future Appointments (+ 6 months) and Future Tests (+/- 45 days) The Plan of Treatment section includes future care activities for the patient from all [place] treatmentfacilities. This section includes future appointments and future orders which are active, pending or scheduled. Future Appointments This section includes appointments that were scheduled to occur 6 months from the date of the Encounter, up to a maximum of 20 appointments. The data comes from all [place] treatment facilities. Appointment Date/Time Appointment Type Appointme nt Facility Name Oct 21, 2023 08:30 AM [facility] [place] [facility] [facility] Oct 29, 2023 08:00 AM [facility] [place] [facility] Oct 29, 2023 08:01 AM [facility] [place] [facility] [place] [facility] Nov 13, 2023 08:00 AM AMBULATORY - MEDICINE [facility] Nov 26, 2023 02:40 PM AMBULATORY - MEDICINE [facility] Dec 10, 2023 11:20 AM AMBULATORY - MEDICINE [facility] Dec 19, 2023 08:00 AM AMBULATORY - MEDICINE [facility] Dec 31, 2023 09:30 AM AMBULATORY - MEDICINE [facility] Dec 31, 2023 12:00 PM [facility] [place] [facility] Jan 07, 2024 08:20 AM [place] [place] [facility] Jan 14, 2024 08:20 AM AMBULATORY - MEDICINE [facility] Jan 14, 2024 08:40 AM AMBULATORY - MEDICINE [facility] Jan 28, 2024 08:20 AM AMBULATORY - MEDICINE [facility] Mar 05, 2024 11:15 AM AMBULATORY [place] [facility] Mar 17, 2024 10:40 AM AMBULATORY - MEDICINE [facility] Apr 14, 2024 08:40 AM AMBULATORY - MEDICINE [facility] Lab Results: +/- 30 days of the encounter This section includes the Chemistry and Hematology Lab Results on record with [facility] for the patient. Radiology Reports and Pathology Reports are provided separately, in subsequent sections. Lab Results This section contains the Chemistry/Hematology Results that were resulted 30 days before or 30 daysafter the date of the Encounter. Date/Time Source Result Type Result - Unit Interpretation Reference Range Specimen Type Comment Oct 15, 2023 08:07 AM [facility] HGA1C BLOOD Specimen Type: BLOOD No comment entered. Ordering Provider: ESAU GALDAMEZ Report Released Date/Time: Oct 23, 2022 09:14 AM Reporting Lab: [place] [facility] [address] [place] [address] Performing Lab: [place] [facility] [address] [place] [address] HGA1C 9.3 H 4.0-6.0 Oct 15, 2023 08:07 AM [facility] TSH (MA-PB) SERUM Specimen Typ e: SERUM No comment entered. Ordering Provider: ESAU GALDAMEZ Report Released Date/Time: Oct 23, 2022 09:14 AM Reporting Lab: [place] [facility] [address] [place] [address] Performing Lab: [place] [facility] [address] [place] [address] TSH 1.333 u[IU]/mL 0.47-5 Oct 15, 2023 08:07 AM [facility] CHOLESTEROL PANEL (PB) PLASMA Specimen Type: P LASMA No comment entered. Ordering Provider: ESAU GALDAMEZ Report Released Date/Time: Oct 23, 2022 09:14 AM Reporting Lab: [place] [facility] [address] [place] [address] Performing Lab: [place] [facility] [address] [place] [address] CHOLESTEROL 171 mg/dL 0-200 TRIGLYCERIDE 205 mg/dL H 0-150 CALCULATED LDL 100.4 mg/dL HDL(New) 29.6 mg/dL L >40 HDL % OF TOTAL CHOLESTEROL (PB) 17.3 >25 Oct 15, 2023 08:07 AM [facility] COMPREHENSIVE METABOLIC PANEL PLASMA Specimen Type: PLASMA No comment entered. Ordering Provider: ESAU GALDAMEZ Report Released Date/Time: Oct 23, 2022 09:14 AM Reporting Lab: [place] [facility] [address] [place] [address] Performing Lab: [place] [facility] [address] [place] [address] CREATININE 1.04 mg/dL 0.7-1.3 UREA NITROGEN 14 [...] 2020) 86 Oct 15, 2023 08:05 AM [facility] URINE ALBUMIN PROFILE-ih (PB) URINE Specimen Type: URINE No comment entered. Ordering Provider: ESAU GALDAMEZ Report Released Date/Time: Oct 23, 2022 09:14 AM Reporting Lab: [place] [facility] [address] [place] [address] Performing Lab: [place] [facility] [address] [place] [facility] URINE ALBUMIN (PB-STL) 8.30 mg/L 0-30 uACR (PB-MA) 11.67 ug/mg CREATININE URINE/OTHERS 71.14 mg/dL Oct 15, 2023 08:05 AM [facility] CB CBC BLOOD Specimen Type: BLOOD No comment entered. Ordering Provider: ESAU GALDAMEZ Report Released Date/Time: Oct 23, 2022 09:14 AM Reporting Lab: [place] [facility] [address] [place] [address] Performing Lab: [place] [facility] [address] [place] [facility] WBC 7.3 10*3/uL 3.6-11.2 RBC 5.65 10*6/uL [...] Height Weight Body Mass Index Source Oct 17, 2023 09:00 AM 98.2 99 136/91 [facility] Social History: Smoking Status (Most current) and Tobacco Use (All prior to encounter date) This section includes the most current, and the historical, smoking and tobacco- related health factors from the [place] facility where the Encounter took place. Current Smoking Status This section includes the most current smoking, or tobacco-related health factor, from the [place] facility where the Encounter took place. Date/Time Current Smoking Status Comment Facil ity May 30, 2022 01:00 PM [place]-TOBACCO FORMER USER [facility] Tobacco Use History This section includes a history of the smoking, or tobacco-related health factors, that were collected on or before the date of the Encounter. The data comes from the [place] facility where the Encounter took place. Date/Time Smoking Status/Tobacco Use Comment F acility May 30, 2022 01:00 PM [place]-TOBAC[place] QUIT 15 YRS OR MORE [facility] Encounter Notes: All associated encounter notes This section contains the clinical notes associated to the Encounter. Date/Time Encounter Note(s) Provider Source Oct 17, 2023 08:57 AM CHIROPRACTIC NOTE: LOCAL TITLE: CHIROPRACTIC FOLLOW UP NOTE PB STANDARD TITLE: CHIROPRACTIC NOTE DATE OF NOTE: OCT 17, 2023@08:57 ENTRY DATE: OCT 17, 2023@08:57:05 AUTHOR: DOE GONZALEZ COSIGNER: URGENCY: STATUS: COMPLETED CHIROPRACTIC FOLLOW-UP VISIT Patient's language preference for health information: Hebrew Other Communication Methods Needed: SUBJECTIVE: The is a 53 year old MALE being seen in the Chiropractic clinic for follow-up visit. The describes his neck as being out and tension in his back. He attributes the pain to his daily activities and staying at a hotel while on vacation. The rates his pain level as a 6/10. PAST MEDICAL HISTORY: see problem list SOCIO-ECONOMIC [...] # 06/15/2022 MRI SPINE CERVICAL W/O CONT [id number] Verified [id number] 1. Right paracentral herniated disc [...] associated myofascial pain. PLAN: This is the fourth follow up treatment for the of a planned six treatments. Due to the persistent neck and back pain, we will treat The once every two weeks for six treatments. [...] exercise program and to commit to a m[facility]p exercise plan. /misha/ [facility] Signed: 10/17/2023 09:15 [facility]
--- OUTSIDE RECORDS SUMMARY | 2023-10-21 03:30 | XMS_ITS | Encounter Summary ---
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 with alogliptin, empagliflozin, and glipizide. Will change the glipizide and work on PA fo ozempic. Discussed the SE of ozempic and need to improve diet and increase activity. He will dorp off a glucoe log at the end of the month and will repeat A1C in 3 months. Morbid obesity-continued to encouraged improved diet and increased activity especially increased activity after meals. Hyperlipidemia- controlled on atorvastatin and ezetimibe Hypertension-controlled on lisinopril. Hearing loss/Tinnitus- has hearing aids Vitamin D deficiency- on supplement Hemorrhoids- no current issues Obstructive sleep apnea- CPAP, encouraged regular use Allergic rhinitis-discussed again with patient consistent use of his Princess as needed and Flonase Restless legs- controlled on ropinirole 2mg BPH- will start on tamsulosin Polycythemia secondary to ANGELA- Encouraged consistent CPAP use Irritable bowel syndrome with diarrhea- stable; currently having a flare Noncompliance with treatment- encouraged better compliance for better health Right shoulder supraspinatus tendinosis- doing better Chronic neck and back pain- seeing chiropractor Bilateral wrist pain- stable GERD- on omeprazole; encouraged weight loss Polyp Colon (hyperplastic)- next colonoscopy due 2030 Dermatitis- resolved Stable. Discussed medications with patient; med rec completed. Continue current regimen as prescribed by PCP and specialists. RTC as needed if developing any new or worsening symptoms. Please notify PACT with medication changes or for orders coordination as needed if seen by a specialist in the future. Will f/u with patient once updated labs / imaging / testing received; otherwise f/u as listed below. Follow-up: 6 months with fasting labs prior to appointment and/or as needed. Discussed with patient that in the event of community imaging / testing being ordered in the future, once the imaging / testing has been completed, please notify PACT of completion at outside facility if not called with results within 1 week by a [facility] member; this is due to intermittent lapses in notification of imaging completion within [facility]. All questions answered; agrees to plan of care. Follow up as listed above, annually, and as needed. Keep all appointments. Medications Reconciled. See AVS given to [place]. Time spent 30 minutes. /misha/ Aura Galdamez MD [facility] Signed: 10/21/2023 09:05 11/22/2023 ADDENDUM STATUS: COMPLETED Reviewed patient's blood sugar log with noted improvement in his blood glucose level since starting the Ozempic currently with readings 84-148. No changes. Keep up the good work working with diet and increase activity as well. /es/ Aura Galdamez MD [facility] Signed: 11/22/2023 15:12 Receipt Acknowledged By: 11/22/2023 15:40 /es/ SHAHEEN BAXTER LPN [facility] 11/22/2023 ADDENDUM STATUS: COMPLETED Called and spoke with [facility] regarding the following: Reviewed patient's blood sugar log with noted improvement in his blood glucose level since starting the Ozempic currently with readings 84-148. No changes. Keep up the good work working with diet and increase activity as well. /misha/ Aura Galdamez MD [facility] Signed: 11/22/2023 15:12 [place] voiced understanding, thanked me for calling. /misha/ SHAHEEN BAXTER [facility] Signed: 11/22/2023 15:44 02/21/2024 ADDENDUM STATUS: COMPLETED See nurses notes regarding hernia on December 31, 2023 Updated note on his surgery consult: ADDED COMMENT 02/21/24 12:13 BRIAN ROMAN BRENDA JO I called and spoke with 's spouse who stated Dr. Pires took the [place] to surgery and once he opened into the abdomen that the bladder and testical were involved and attached to the hernia. He was closed and stabilized and sent home with Tramadol and 4 ibuproven po every [address] Pires's office informed her they were faxing records to Dr. Green in [place] at [facility] and was told it would likely be Saturday before he would review the records and they informed her it could be as long as 2 weeks to get him an appointment and possibly 2 weeks out for a surgery. In addition, they faxed records to [facility] in [place], [place] also. [facility] stated they gave her good instructions on when to go to ER and I added to be pleasure to get him to ER if any concerns of changes at all in temperature, drainage, uncontrolled pain, etc. She thanked me. I think tried to call [facility] in [place] and carbon dioxide operator stated they were not in clinic today due to the weather. I also tried [facility] and no answer at their clinic either. I then tried Dr. Pires's office for follow-up and they were closed also. /misha/ Aura Galdamez MD [facility] Signed: 02/21/2024 16:16 AURA GALDAMEZ [facility] Oct 21, 2023 08:27 AM PRIMARY CARE NURSI TOMMY NOTE: LOCAL TITLE: PRIMARY CARE NURSING PROGRESS NOTE (TEXT) NURSING P STANDARD TITLE: PRIMARY CARE NURSING NOTE DATE OF NOTE: OCT 21, 2023@08:27 ENTRY DATE: OCT 21, 2023@08:27:54 AUTHOR: SHAHEEN BAXTER EXP COSIGNER: URGENCY: STATUS: COMPLETED Established Patient LOBO SCHULTE IS A 53 YEAR OLD MALE BEING SEEN IN CLINIC OCT 21, 2023. == == REASON FOR VISIT: here for 6 month follow up, been sick this past , diarrhea since Saturday Are you receiving care any where other than the [facility]? No HEALTH AND SURGICAL HISTORY: Does patient report using home oxygen? No CURRENT ACTIVE MEDICATIONS FOR REVIEW: Allergies/ADRs (Tool #5) FACILITY ALLERGY/ADR -------- No Remote Allergy/ADR Data available for this patient [facility] METFORMIN [facility] PENICILLIN Med. Reconciliation (Tool #1) INCLUDED IN THIS LIST: Alphabetical list of active outpatient prescriptions dispensed from this [place] (local) and dispensed from another [place] or [facility] facility (remote) as well as inpatient orders (local pending and active), local clinic medications, locally documented non-VA medications, and local prescriptions that have or been discontinued in the past 90 days. Non-VA Meds Last Documented On: Nov 10, 2021 NOTE The display of VA prescriptions dispensed from another [place] or [facility] facility (remote) is limited to active outpatient prescription entries matched to National Drug File at the originating site and may not include some items such as investigational drugs, compounds, etc. NOT INCLUDED IN THIS LIST: Medications self-entered by the patient into personal health records (i.e. [facility]) are NOT included in this list. Non-VA medications documented outside this [place], remote inpatient orders (regardless of status) and remote clinic medications are NOT included in this list. The patient and provider must always discuss medications the patient is taking, regardless of where the medication was dispensed or obtained. OUTPT ALOGLIPTIN 25MG TAB (Status = Discontinued) TAKE ONE TABLET BY MOUTH ONCE A DAY TO LOWER BLOOD SUGAR. REPLACES SAXAGLIPTIN. Rx# [id number] Last Released: QtDays Supply: Rx Expiration Date: 09/18/24 Refills Remainin Non-VA APPLE CIDER VINEGAR CAP/TAB TAKE BY MOUTH ONCE A DAY Non-VA ASCORBIC ACID TAB TAKE BY MOUTH ONCE A DAY OUTPT ATORVASTATIN CALCIUM 80MG TAB (Status = ) TAKE ONE TABLET BY MOUTH EVERY EVENING FOR CHOLESTEROL. REPORT ANY UNEXPLAINED MUSCLE PAIN/WEAKNESS TO PROVIDER. Rx# [id number] Last Released: 07/09/23 Qty/Days Supply: Rx Expiration Date: 08/08/23 Refills Remainin OUTPT AZELASTINE 137MCG/SPRAY 200D NASAL INHL (Status = Active) SPRAY 1 SPRAY IN EACH NOSTRIL TWICE A DAY USE WITH FLUTICASONE NASAL DIRECTED *PRIME BEFORE USE* Rx# [id number] Last Released: 07/10/23 Qty/Days Supply: 03/12 Rx Expiration Date: 11/27/23 Refills Remainin Non-VA CHOLECALCIF 25MCG (D3-1,000UNIT) TAB TAKE ONE TABLET BY MOUTH ONCE A DAY Patient wants to buy from Non-VA pharmacy. Non-VA CINNAMON CAP/TAB TAKE BY MOUTH ONCE A DAY OUTPT CITALOPRAM HYDROBROMIDE 40MG TAB (Status = Active) TAKE ONE-HALF TABLET BY MOUTH EVERY MORNING FOR DEPRESSION Rx# [id number] Last Released: 07/16/23 Qty/Days Supply: Rx Expiration Date: 02/06/24 Refills Remainin Indication: FOR DEPRESSION OUTPT EMPAGLIFLOZIN 25MG TAB (Status = Active) TAKE ONE TABLET BY MOUTH ONCE A DAY FOR BLOOD SUGAR CONTROL Rx# [id number] Last Released: 09/20/23 Qty/Days Supply: Rx Expiration Date: 09/18/24 Refills Remainin OUTPT EZETIMIBE 10MG TAB (Status = Active) TAKE ONE TABLET BY MOUTH ONCE A DAY TO LOWER CHOLESTEROL Rx# [id number] Last Released: 09/18/23 Qty/Days Supply: Rx Expiration Date: 02/06/24 Refills Remainin OUTPT FEXOFENADINE HCL 180MG TAB (Status = Active) TAKE ONE TABLET BY MOUTH ONCE A DAY Rx# [id number] Last Released: 09/17/23 Qty/Days Supply: Rx Expiration Date: 11/27/23 Refills Remainin OUTPT FLUTICASONE PROP 50MCG 120D NASAL INHL (Status = Active) INSTILL 2 SPRAYS IN NOSTRIL(S) ONCE A DAY FOR CHRONIC RHINOSINUSITIS (MUST BE USED DIRECTED FOR MINIMUM OF 21 DAYS TO PROVIDE ADEQUATE BENEFITS) Rx# [id number] Last Released: 07/10/23 Qty/Days Supply: Rx Expiration Date: 10/24/23 Refills Remainin Indication: FOR CHRONIC RHINOSINUSITIS OUTPT GLIPIZIDE 10MG TAB (Status = ) TAKE ONE TABLET BY MOUTH TWO TIMES A DAY BEFORE MEALS FOR DIABETES. TAKE 30 MINUTES BEFORE EATING. Rx# [id number] Last Released: 09/16/23 Qty/Days Supply: Rx Expiration Date: 10/03/23 Refills Remainin OUTPT MAGNESIUM OXIDE 400MG TAB (Status = Active) TAKE ONE TABLET BY MOUTH ONCE A DAY FOR DIETARY MAGNESIUM SUPPLEMENTATION Rx# [id number] Last Released: 09/16/23 Qty/Days Supply: 120/90 Rx Expiration Date: 02/06/24 Refills Remainin Indication: FOR DIETARY MAGNESIUM SUPPLEMENTATION OUTPT OMEPRAZOLE 20MG EC CAP (Status = Active) TAKE ONE CAPSULE BY MOUTH EVERY MORNING TO LOWER STOMACH ACID. TAKE 30 MINUTES PRIOR TO FOOD. Rx# [id number] Last Released: 07/05/23 Qty/Days Supply: Rx Expiration Date: 04/18/24 Refills Remainin OUTPT ROPINIROLE HCL 2MG TAB (Status = Active) TAKE ONE TABLET BY MOUTH AT BEDTIME FOR RESTLESS LEG SYNDROME Rx# [id number] Last Released: 07/10/23 Qty/Days Supply: Rx Expiration Date: 10/24/23 Refills Remainin Indication: FOR RESTLESS LEG SYNDROME OUTPT SITAGLIPTIN (EQV-ZITUVIO) 100MG TAB (Status = Active) TAKE ONE TABLET BY MOUTH ONCE A DAY FOR DIABETES (REPLACES SAXAGLIPTIN) Rx# [id number] Last Released: 09/23/23 Qty/Days Supply: Rx Expiration Date: 09/19/24 Refills Remainin Indication: FOR DIABETES OUTPT TAMSULOSIN HCL 0.4MG CAP (Status = Active/Suspended) TAKE ONE CAPSULE BY MOUTH EVERY EVENING FOR BENIGN PROSTATIC HYPERPLASIA APPROXIMATELY 30 MINUTES AFTER THE SAME MEAL EACH DAY Rx# [id number] Last Released: 07/24/23 Qty/Days Supply: Rx Expiration Date: 04/18/24 Refills Remainin Indication: FOR BENIGN PROSTATIC HYPERPLASIA Non-VA TURMERIC CAP/TAB TAKE BY MOUTH SUPPLIES OUTPT ALCOHOL PREP PAD (Status = Active) USE/APPLY PAD TO AFFECTED AREA(S) ONCE A DAY NEEDED FOR SKIN CLEANSING Rx# [id number] Last Released: 10/24/22 Qty/Days Supply: 200/90 Rx Expiration Date: 10/24/23 Refills Remainin Indication: FOR SKIN CLEANSING OUTPT LANCET,SOFTCLIX (Status = Active) USE LANCET FOR BLOOD TEST TWICE A DAY FOR BLOOD SUGAR MONITORING USE DIRECTED. Rx# [id number] Last Released: 01/17/23 Qty/Days Supply: 100/90 Rx Expiration Date: 10/24/23 Refills Remainin Indication: FOR BLOOD SUGAR MONITORING PHARMACY TERMS AND POSSIBLE PATIENT ACTIONS INPT = [place] inpatient order IV = [place] intravenous medication OUTPT = [place] outpatient prescription PHARMACY POSSIBLE PATIENT TERMS EXPLANATION ACTIONS -------- ----- ACTIVE A prescription that can be If you have refills, filled at the local [place] pharmacy. you may request a refill of this prescription from your [place] pharmacy. CLINIC A medication you received during If you have questions a visit to a [place] clinic or about this medication emergency department. contact your [place] healthcare team. DISCONTINUED A prescription your provider has Contact your VA stopped. It is no longer healthcare team if you available to be sent to you or need more of this picked up at the [place] pharmacy medication. window. A prescription which is too old Contact your VA to fill. This does not refer to healthcare team if you the expiration date of the need more of this medication in the container. medication. NON-VA A medication that came from If this medication someplace other than a VA information is pharmacy. This may be a incorrect or out of prescription from either the VA date, please tell your or non VA providers that was VA healthcare team. filled outside the VA. Or, it may be an [id number] (OTC), herbal, dietary supplements or sample medication. ON HOLD An active prescription that will Contact your VA not be filled until pharmacy pharmacy when you need resolves the issue. more of this medication. PARKED An active prescription that will Contact your VA not be filled until the patient pharmacy when you need requests it. this medication. PENDING This prescription order has been If you have been sent to the pharmacy for review instructed to start and is not ready yet. this medication now, contact your VA pharmacy. SUSPENDED An active prescription that is Contact your [place] not scheduled to be filled yet. pharmacy if you need You should receive it before this medication now. you run out. Patient reports taking medications as ordered. IS PATIENT TAKING ANY OVER THE COUNTER MEDICATIONS, SUCH VITAMINS OR HERBAL SUPPLEMENTS, INCLUDING ANY MEDICATIONS PRESCRIBED BY ANOTHER PHYSICIAN? No ALLERGIES/ADVERSE REACTIONS: METFORMIN, PENICILLIN Does patient have any new allergies to report since last visit? NO VITALS: TEMPERATURE: 98.2 F [36.8 C] (10/17/2023 09:00) BP: 136/91 (10/17/2023 09:00) RESP: 19 (10/04/2023 11:07) PULSE: 99 (10/17/2023 09:00) HT: 69 in [175.3 cm] (04/18/2023 08:35) WT: 271.2 lb [123.01 kg] (10/04/2023 11:07) BMI: 40.1 PAIN ASSESSMENT: (Most Recent Pain Score in Vitals Package: 0 (10/04/2023 11:07) ) The patient indicated that they and their close contacts have not traveled outside of the [place] in the past 21 days. The patient reports the following symptoms: No symptoms present The patient is not immunocompromised. The patient does not report having a history of Multi Drug Resistant Organism (MDRO) within the last five years. The patient does not report having been exposed to measles, chickenpox, or zoster in last 30 days. STRESS: Thank you for your service. Now let us serve you. At the [facility], we strive to provide you with exceptional health care that improves your health and well-being. Are you feeling sad, empty, or depressed? No Do you need to talk about things in your life that worry you or cause you stress? No Do you need to talk about personal problems, family problems, alcohol use, drug use, or mental or emotional illness? No SUICIDE SCREENING: The patient was asked, Over the past two weeks, how often have you been bothered by thoughts that you would be better off or of hurting yourself in some way? Not At All SPIRITUAL ASSESSMENT: Are there alevism practices or spiritual concerns you want the rn allergy, your physician, and other health care team members to immediately know about? No Patient advised to call the clinic for any concerns, questions, or symptoms. Patient and/or caregiver verbalized understanding of plan of care. Suicide Screen: C-SSRS Screening [place]-Suicide Severity Rating Scale (C-SSRS Screener) 1. Over the past month, have you wished you were or wished you could go to sleep and not wake up? No 2. Over the past month, have you had any actual thoughts of killing yourself? No 3. Over the past month, have you been thinking about how you might do this? Response not required due to responses to other questions. 4. Over the past month, have you had these thoughts and had some intention of acting on them? Response not required due to responses to other questions. 5. Over the past month, have you started to work out or worked out the details of how to kill yourself? Response not required due to responses to other questions. 6. If yes, at any time in the past month did you intend to carry out this plan? Response not required due to responses to other questions. 7. In your lifetime, have you ever done anything, started to do anything, or prepared to do anything to end your life (for example, collected pills, obtained a gun, gave away valuables, went to the roof but didn't jump)? No 8. If YES, was this within the past 3 months? Response not required due to responses to other questions. Sexual Orientation: The patient thinks of their sexual orientation as: Straight or Heterosexual RHS Screen: RHS Screen Environmental Check Upon inquiry, the individual reports that the environment is safe to proceed. Informed Consent to Screen and Document The individual does NOT consent to proceed with screening. Alcohol Use Screen (AUDIT-C): Alcohol Screen: SCREEN FOR ALCOHOL (AUDIT-C) An alcohol screening test (AUDIT-C) was negative (score=1). 1. How often did you have a drink containing alcohol in the past year? Consider a drink to be a 12 ounce can or bottle of regular beer, 8 ounces of malt liquor, a 5 ounce glass of table wine, or a 1.5 ounce shot of liquor (like scotch, gin, or vodka). Monthly or less 2. How many drinks containing alcohol did you have on a typical day when you were drinking in the past year? One or two drinks 3. How often did you have six or more drinks on one occasion in the past year? Never Depression Screening: Perform PHQ-2 A PHQ-2 screen was performed. The score was 0 which is a negative screen for depression. Over the past two weeks, how often have you been bothered by the following problems? 1. Little interest or pleasure in doing things Not at all 2. Feeling down, depressed, or hopeless Not at all Tobacco Use Screening: The patient is a former tobacco user. The patient quit fifteen or more years ago. MOVE Weight Management: Most recent BMI: 39.0. educated on health risk of obesity and treatment is offered. Participation in a weight management program was considered/offered for this patient based on the current BMI score. Patient declines participation in a weight management program. Pneumococcal Conjugate Vaccine (PCV15/PCV20): Refuses PCV vaccine Immunization: PNEUMOCOCCAL CONJUGATE, UNSPECIFIED FORMULATION Refusal Reason: PATIENT DECISION Patient refuses all immunization(s) in the PneumoPCV group Date Documented: 10/21/23 08:47 Pain Assessment: - PAIN ASSESSMENT: .. This patient's last pain assessment score was: 4 (10/21/2023 08:36). A detailed pain assessment showed the following: Pain characteristics (per patient's own words) Constant Location of current pain Low Back Patient's self identified pain goal: 0 Herpes Zoster (Shingles) Vaccine: The patient declines to receive the recommended dose of zoster (shingles) vaccine. Immunization: ZOSTER RECOMBINANT Refusal Reason: PATIENT DECISION Patient refuses all immunization(s) in the ZOSTER group Date Documented: 10/21/23 08:50 [facility] MAP: PERSONAL HEALTH PLAN INVENTORY & MAP 's Response: family /misha/ SHAHEEN BAXTER LPN [facility] Signed: 10/21/2023 08:50 SHAHEEN BAXTER [facility] Oct 16, 2023 10:41 AM GENERAL MEDICINE N OTE: LOCAL TITLE: General Note PB STANDARD TITLE: GENERAL MEDICINE NOTE DATE OF NOTE: OCT 16, 2023@10:41 ENTRY DATE: OCT 16, 2023@10:41:59 AUTHOR: AURA GALDAMEZ EXP COSIGNER: URGENCY: STATUS: COMPLETED Please call and remind patient to bring his blood glucose log with him tomorrow. /misha/ Aura Galdamez MD [facility] Signed: 10/16/2023 10:42 Receipt Acknowledged By: 10/16/2023 10:48 /misha/ AURA KNOTT [facility]
--- OUTSIDE RECORDS SUMMARY | 2023-10-29 03:00 | XMS_ITS | Encounter Summary ---
Author Name [facility] [place] Address [address] [place] [address] Care Team Providers Care Recycle Coordinator Name Role Phone ESAU GALDAMEZ Primary Care [...] PLAN W/HEALTH SAVINGS ACCOUNT R.P. LUMBE R [facility] Feb 12, 2024 [facility] [phone] LOBO SCHULTE PATIENT [facility] MENTAL HEALTH R.P. LUMBE R [facility] Feb 12, 2024 [facility] [id number] [phone] LOBO SCHULTE PATIENT MEDIMPACT RX PRESCRIPT ION RX PLAN [facility] Feb 12, 2024 [facility] [id number] [phone] LOBO SCHULTE PATIENT MEDIMPACT RX PRESCRIPT ION RX PLAN [facility] Feb 12, 2024 [facility] [phone] LOBO SCHULTE PATIENT PRIME THERAPEUTI CS RX PRESCRIPT ION RX PLAN Feb 11, 2019 [facility] [id number] [phone] LOBO SCHULTE PATIENT PRIME THERAPEUTI CS RX PRESCRIPT ION [facility] Mar 14, 2009 [id number] [phone] LOBO SCHULTE PATIENT Selected Encounter This section includes the information on record at [place] for the Encounter. 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 Date/Time Primary/Secondary Diagnosis Diagnosis Name Provider Source Nov 08, 2023 09:24 AM PRIMARY Segmental and somatic dysfunction of cervical region DOE GONZALEZ [facility] Nov 08, 2023 09:24 AM SECONDARY Cervicalgia LISADOE Corona [facility] Nov 08, 2023 09:24 AM SECONDARY Other intervertebral disc degeneration, lumbosacral region DOE GONZALEZ [facility] Nov 08, 2023 09:24 AM SECONDARY Pain in thoracic spine DOE GONZALEZ [facility] Nov 08, 2023 09:24 AM SECONDARY Segmental and somatic dysfunction of lumbar region DOE GONZALEZ [facility] Nov 08, 2023 09:24 AM SECONDARY Segmental and somatic dysfunction of pelvic region DOE GONZALEZ [facility] Nov 08, 2023 09:24 AM SECONDARY Segmental and somatic dysfunction of thoracic region LISADOE [facility] Plan of Treatment: Future Appointments (+ 6 months) and Future Tests (+/- 45 days) The Plan of Treatment section includes future care activities for the patient from all [place] treatmentfacilities. This section includes future appointments and future orders which are active, pending or scheduled. Future Appointments This section includes appointments that were scheduled to occur 6 months from the date of the Encounter, up to a maximum of 20 appointments. The data comes from all [place] treatment facilities. Appointment Date/Time Appointment Type Appointme nt Facility Name Nov 13, 2023 08:00 AM AMBULATORY - MEDICINE [facility] Nov 26, 2023 02:40 PM AMBULATORY - MEDICINE [facility] Dec 10, 2023 11:20 AM [facility] Dec 19, 2023 08:00 AM [facility] Dec 31, 2023 09:30 AM [facility] Dec 31, 2023 12:00 PM [place] [facility] Jan 07, 2024 08:20 AM [place] [facility] Jan 14, 2024 08:20 AM [facility] Jan 14, 2024 08:40 AM [facility] Jan 28, 2024 08:20 AM [facility] Mar 05, 2024 11:15 AM [facility] [place] [facility] Mar 17, 2024 10:40 AM [facility] Apr 14, 2024 08:40 AM [facility]BULATORY - MEDICINE [facility] Lab Results: +/- 30 days of the encounter This section includes the Chemistry and Hematology Lab Results on record with [place] for the patient. Radiology Reports and Pathology Reports are provided separately, in subsequent sections. Lab Results This section contains the Chemistry/Hematology Results that were resulted 30 days before or 30 daysafter the date of the Encounter. Date/Time Source Result Type Result - Unit Interpretation Reference Range Specimen Type Comment Oct 15, 2023 08:07 AM [facility] HGA1C BLOOD Specimen Type: BLOOD No comment entered. Ordering Provider: ESAU GALDAMEZ Report Released Date/Time: Oct 23, 2022 09:14 AM Reporting Lab: [place] [facility] [address] [place] [address] Performing Lab: [place] [facility] [address] [place] [address] HGA1C 9.3 H 4.0-6.0 Oct 15, 2023 08:07 AM [facility] TSH (MA-PB) SERUM Specimen Typ e: SERUM No comment entered. Ordering Provider: ESAU GALDAMEZ Report Released Date/Time: Oct 23, 2022 09:14 AM Reporting Lab: [place] [facility] [address] [place] [address] Performing Lab: [place] [facility] [address] [place] [address] TSH 1.333 u[IU]/mL 0.47-5 Oct 15, 2023 08:07 AM [facility] CHOLESTEROL PANEL (PB) PLASMA Specimen Type: P KISHORE No comment entered. Ordering Provider: ESAU GALDAMEZ Report Released Date/Time: Oct 23, 2022 09:14 AM Reporting Lab: [place] [facility] [address] [place] [address] Performing Lab: [place] [facility] [address] [place] [address] CHOLESTEROL 171 mg/dL 0-200 TRIGLYCERIDE 205 mg/dL H 0-150 CALCULATED LDL 100.4 mg/dL HDL(New) 29.6 mg/dL L >40 HDL % OF TOTAL CHOLESTEROL (PB) 17.3 >25 Oct 15, 2023 08:07 AM [facility] COMPREHENSIVE METABOLIC PANEL PLASMA Specimen Type: PLASMA No comment entered. Ordering Provider: ESAU GALDAMEZ Report Released Date/Time: Oct 23, 2022 09:14 AM Reporting Lab: [place] [facility] [address] [place] [facility] Performing Lab: [place] [facility] [address] [place] [address] CREATININE 1.04 mg/dL 0.7-1.3 UREA NITROGEN 14 [...] 2020) 86 Oct 15, 2023 08:05 AM [facility] URINE ALBUMIN PROFILE-ih (PB) URINE Specimen Type: URINE No comment entered. Ordering Provider: ESAU GALDAMEZ Report Released Date/Time: Oct 23, 2022 09:14 AM Reporting Lab: [place] [facility] [address] [place] [address] Performing Lab: [place] [facility] [address] [place] [address] URINE ALBUMIN (PB-STL) 8.30 mg/L 0-30 uACR (PB-MA) 11.67 ug/mg CREATININE URINE/OTHERS 71.14 mg/dL Oct 15, 2023 08:05 AM [facility] CBC BLOOD Specimen Type: BLOOD No comment entered. Ordering Provider: ESAU GALDAMEZ Report Released Date/Time: Oct 23, 2022 09:14 AM Reporting Lab: [place] [facility] [address] [place] [address] Performing Lab: [place] [facility] [address] [place] [place] [address] WBC 7.3 10*3/uL 3.6-11.2 RBC 5.65 10*6/uL [...] Height Weight Body Mass Index Source Oct 29, 2023 08:00 AM 98.6 84 137/92 [facility] Social History: Smoking Status (Most current) and Tobacco Use (All prior to encounter date) This section includes the most current, and the historical, smoking and tobacco- related health factors from the [place] facility where the Encounter took place. Current Smoking Status This section includes the most current smoking, or tobacco-related health factor, from the [place] facility where the Encounter took place. Date/Time Current Smoking Status Comment Facil ity Oct 21, 2023 08:30 AM VA-TOBACCO FORMER USER [facility] Tobacco Use History This section includes a history of the smoking, or tobacco-related health factors, that were collected on or before the date of the Encounter. The data comes from the [place] facility where the Encounter took place. Date/Time Smoking Status/Tobacco Use Comment F acility Oct 21, 2023 08:30 AM VA-TOBACCO QUIT 15 YRS OR MORE [facility] May 30, 2022 01:00 PM VA-TOBACCO FORMER USER [facility] May 30, 2022 01:00 PM VA-TOBACCO QUIT 15 YRS OR MORE [facility] Encounter Notes: All associated encounter notes This section contains the clinical notes associated to the Encounter. Date/Time Encounter Note(s) Provider Source Oct 29, 2023 08:15 AM CHIROPRACTIC NOTE: LOCAL TITLE: CHIROPRACTIC FOLLOW UP NOTE PB STANDARD TITLE: CHIROPRACTIC NOTE DATE OF NOTE: OCT 29, 2023@08:15 ENTRY DATE: OCT 29, 2023@08:15:17 AUTHOR: DOE GONZALEZ COSIGNER: URGENCY: STATUS: COMPLETED CHIROPRACTIC FOLLOW-UP VISIT Patient's language preference for health information: Serbian Other Communication Methods Needed: SUBJECTIVE: The [place] is a 53 year old MALE being seen in the Chiropractic clinic for follow-up visit. The states he is very sore due to his level of activity preparing for . The rates his pain level as a 4-5/10. PAST MEDICAL HISTORY: see problem list SOCIO-ECONOMIC [...] restricted in all planes of motion. The [place] experience pain with the restricted AROM. LUMBAR/THORACIC SPINE: MOVEMENT/POSTURE: The [place] ambulates without issue. SEGMENTAL DYSFUNCTION: Joint dysfunction [...] # 06/15/2022 MRI SPINE CERVICAL W/O CONT 73635 Verified 3636 1. Right paracentral herniated disc [...] associated myofascial pain. PLAN: This is the fifth follow up treatment for the of a planned six treatments. Due to the persistent neck and back pain, we will treat The [place] once every two weeks for six treatments. 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 /misha/ [facility] Signed: 10/29/2023 08:24 DOE GONZALEZ [facility]
--- OUTSIDE RECORDS SUMMARY | 2023-11-13 03:00 | XMS_ITS | Encounter Summary ---
Author Name [facility] [place] Address [address] [place] [address] Care Team Providers Care De Icer Installer Name Role Phone ESAU GALDAMEZ Primary Care [...] PLAN W/HEALTH SAVINGS ACCOUNT R.P. LUMBE R [facility] Feb 12, 2024 [facility] [id number] [phone] LOBO SCHULTE PATIENT [facility] MENTAL HEALTH R.P. LUMBE R [facility] Feb 12, 2024 [facility] [id number] LOBO SCHULTE PATIENT MEDIMPACT RX PRESCRIPT ION RX PLAN [facility] Feb 12, [address]24 [facility] [id number] [phone] LOBO SCHULTE PATIENT MEDIMPACT RX PRESCRIPT ION RX PLAN [facility] Feb 12, [address]24 [facility] [id number] [phone] LOBO SCHULTE PATIENT PRIME THERAPEUTI CS RX PRESCRIPT ION RX PLAN Feb 11, 2019 [facility] [id number] [phone] LOBO SCHULTE PATIENT PRIME THERAPEUTI CS RX PRESCRIPT ION HEALT H CARE [facility]I [facility] Mar 14, 2009 [id number] [phone] LOBO SCHULTE PATIENT Selected Encounter This section includes the information on record at [place] for the Encounter. Date/Time Encounter Type Encounter Description Reason Provider Source Nov 13, 2023 08:00 AM CHIROPRACT MAN 3-4 REGIONS MANAGER ART ICD-10-CM M99.01 Segmental and somatic dysfunction of cervical region LISADOE Corona [facility] Encounter Template Text not used by [place] Assessments - Encounter Diagnoses This section includes the primary and secondary diagnoses documented for the Encounter. Date/Time Primary/Secondary Diagnosis Diagnosis Name Provider Source Nov 21, 2023 03:13 PM PRIMARY Segmental and somatic dysfunction of cervical region LISADEO Corona [facility] Nov 21, 2023 03:13 PM SECONDARY Cervicalgia DOE GONZALEZ [facility] Nov 21, 2023 03:13 PM SECONDARY Pain in thoracic spine LISADOE Cj [facility] Nov 21, 2023 03:13 PM SECONDARY Radiculopathy, lumbosacral region LISADOE Corona [facility] Nov 21, 2023 03:13 PM SECONDARY Segmental and somatic dysfunction of lumbar region LISADOE E [facility] Nov 21, 2023 03:13 PM SECONDARY Segmental and somatic dysfunction of pelvic region LISADOE E [facility] Nov 21, 2023 03:13 PM SECONDARY Segmental and somatic dysfunction of thoracic region DOE GONZALEZ Cj [facility] Plan of Treatment: Future Appointments (+ 6 months) and Future Tests (+/- 45 days) The Plan of Treatment section includes future care activities for the patient from all [place] treatmentfacilities. This section includes future appointments and future orders which are active, pending or scheduled. Future Appointments This section includes appointments that were scheduled to occur 6 months from the date of the Encounter, up to a maximum of 20 appointments. The data comes from all [place] treatment facilities. Appointment Date/Time Appointment Type Appointme nt Facility Name Nov 26, 2023 02:40 PM AMBULATORY - MEDICINE [facility] Dec 10, 2023 11:20 AM [facility] [place] [facility] [facility] [place] [facility] Dec 19, 2023 08:00 AM [facility] Dec 31, 2023 09:30 AM [facility] Dec 31, 2023 12:00 PM [place]IC[place] [facility] Jan 07, 2024 08:20 AM AMBULATORY - [place] [facility] Jan 14, 2024 08:20 AM [facility] Jan 14, 2024 08:40 AM [facility] Jan 28, 2024 08:20 AM [facility] Mar 05, 2024 11:15 AM [facility]UL[facility]ORY - [place] [facility] Mar 17, 2024 10:40 AM [facility] Apr 14, 2024 08:40 AM AMBULATORY - MEDICINE [facility] Lab Results: +/- 30 days of the encounter This section includes the Chemistry and Hematology Lab Results on record with [place] for the patient. Radiology Reports and Pathology Reports are provided separately, in subsequent sections. Lab Results This section contains the Chemistry/Hematology Results that were resulted 30 days before or 30 daysafter the date of the Encounter. Date/Time Source Result Type Result - Unit Interpretation Reference Range Specimen Type Comment Oct 15, 2023 08:07 AM [facility] HGA1C BLOOD Specimen Type: BLOOD No comment entered. Ordering Provider: ESAU GALDAMEZ Report Released Date/Time: Oct 23, 2022 09:14 AM Reporting Lab: [place] [facility] [address] [place] [address] Performing Lab: [place] [facility] [address] [place] [address] HGA1C 9.3 H 4.0-6.0 Oct 15, 2023 08:07 AM [facility] TSH (MA-PB) SERUM Specimen Typ e: SERUM No comment entered. Ordering Provider: ESAU GALDAMEZ Report Released Date/Time: Oct 23, 2022 09:14 AM Reporting Lab: [place] [facility] [address] [place] [address] Performing Lab: [place] [facility] [address] [place] [address] TSH 1.333 u[IU]/mL 0.47-5 Oct 15, 2023 08:07 AM [facility] CHOLESTEROL PANEL (PB) PLASMA Specimen Type: P LASMA No comment entered. Ordering Provider: ESAU GALDAMEZ Report Released Date/Time: Oct 23, 2022 09:14 AM Reporting Lab: [place] [facility] [address] [place] [address] Performing Lab: [place] [facility] [address] [place] [address] CHOLESTEROL 171 mg/dL 0-200 TRIGLYCERIDE 205 mg/dL H 0-150 CALCULATED LDL 100.4 mg/dL HDL(New) 29.6 mg/dL L >40 HDL % OF TOTAL CHOLESTEROL (PB) 17.3 >25 Oct 15, 2023 08:07 AM [facility] COMPREHENSIVE METABOLIC PANEL PLASMA Specimen Type: PLASMA No comment entered. Ordering Provider: ESAU GALDAMEZ Report Released Date/Time: Oct 23, 2022 09:14 AM Reporting Lab: [place] [facility] [address] [place] [address] Performing Lab: [place] [facility] [address] [place] [address] CREATININE 1.04 mg/dL 0.7-1.3 UREA NITROGEN 14 [...] 2020) 86 Oct 15, 2023 08:05 AM [facility] URINE ALBUMIN PROFILE-ih (PB) URINE Specimen Type: URINE No comment entered. Ordering Provider: ESAU GALDAMEZ Report Released Date/Time: Oct 23, 2022 09:14 AM Reporting Lab: [place] [facility] [address] [place] [address] Performing Lab: [place] [facility] [address] [place] [address] URINE ALBUMIN (PB-STL) 8.30 mg/L 0-30 uACR (PB-MA) 11.67 ug/mg CREATININE URINE/OTHERS 71.14 mg/dL Oct 15, 2023 08:05 AM [facility] CBC BLOOD Specimen Type: BLOOD No comment entered. Ordering Provider: ESAU GALDAMEZ Report Released Date/Time: Oct 23, 2022 09:14 AM Reporting Lab: [place] [facility] [address] [place] [address] Performing Lab: [place] [facility] [address] [place] WBC 7.3 10*3/uL 3.6-11.2 RBC 5.65 10*6/uL [...] Pain Height Weight Body Mass Index Source Nov 13, 2023 08:00 AM 98.1 100 120/82 [facility] Social History: Smoking Status (Most current) and Tobacco Use (All prior to encounter date) This section includes the most current, and the historical, smoking and tobacco- related health factors from the [place] facility where the Encounter took place. Current Smoking Status This section includes the most current smoking, or tobacco-related health factor, from the [place] facility where the Encounter took place. Date/Time Current Smoking Status Comment Archie ity Oct 21, 2023 08:30 AM VA-TOBACCO FORMER USER [facility] Tobacco Use History This section includes a history of the smoking, or tobacco-related health factors, that were collected on or before the date of the Encounter. The data comes from the [place] facility where the Encounter took place. Date/Time Smoking Status/Tobacco Use Comment F rosaline Oct 21, 2023 08:30 AM VA-TOBACCO QUIT 15 YRS OR MORE [facility] May 30, 2022 01:00 PM VA-TOBACCO FORMER USER [facility] May 30, 2022 01:00 PM VA-TOBACCO QUIT 15 YRS OR MORE [facility] Encounter Notes: All associated encounter notes This section contains the clinical notes associated to the Encounter. Date/Time Encounter Note(s) Provider Source Nov 13, 2023 08:12 AM CHIROPRACTIC NOTE: LOCAL TITLE: CHIROPRACTIC FOLLOW UP NOTE PB STANDARD TITLE: CHIROPRACTIC NOTE DATE OF NOTE: NOV 13, 2023@08:12 ENTRY DATE: NOV 13, 2023@08:12:23 AUTHOR: DOE GONZALEZ COSIGNER: URGENCY: STATUS: COMPLETED CHIROPRACTIC FOLLOW-UP VISIT Patient's language preference for health information: Lebanese Other Communication Methods Needed: SUBJECTIVE: The [place] is a 53 year old MALE being seen in the Chiropractic clinic for follow-up visit. The describes his neck as very painful, while his back is not too bad since his last adjustment. The rates his pain level as a [...] # 06/15/2022 MRI SPINE CERVICAL W/O CONT [id number] Verified 3636 1. Right paracentral herniated disc [...] associated myofascial pain. PLAN: This is the final follow up treatment for the of a planned six treatments. Due to the persistent neck and back pain, we will treat The once every two weeks for six additional treatments. 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 /misha/ [facility] Signed: 11/13/2023 08:19 DOE GONZALEZ [facility]
--- OUTSIDE RECORDS SUMMARY | 2023-11-26 09:40 | XMS_ITS | Encounter Summary ---
Author Name [facility] [place] [facility] [place] Address [address] [place] [address] Care Team Providers Care Furniture And Bedding Inspector Name Role Phone ESAU GALDAMEZ Primary Care [...] PLAN W/HEALTH SAVINGS ACCOUNT R.P. LUMBE R [id number] [phone] LOBO SCHULTE PATIENT [facility] MENTAL HEALTH R.P. LUMBE R [facility] Feb [facility], [facility] [id number] [phone] LOBO SCHULTE PATIENT MEDIMPACT RX PRESCRIPT ION RX PLAN [facility] Feb 12, [address] [facility] [id number] [phone] LOBO SCHULTE PATIENT MEDIMPACT RX PRESCRIPT ION RX PLAN [facility] Feb 12, [address] [facility] [id number] [phone] LOBO SCHULTE PATIENT PRIME THERAPEUTI CS RX PRESCRIPT ION RX PLAN Feb 11, 2019 [facility] [id number] [phone] LOBO SCHULTE PATIENT PRIME THERAPEUTI CS RX PRESCRIPT ION [facility] Mar 14, 2009 [id number] [phone] LOBO SCHULTE PATIENT Selected Encounter This section includes the information on record at [place] for the Encounter. Date/Time Encounter Type Encounter Description Reason Provider Source Nov 26, 2023 02:40 PM CHIROPRACT MAN 3-4 REGIONS CRNP ICD-10-CM M99.01 Segmental and somatic dysfunction of cervical region DOE GONZALEZ Encounter Template Text not used by [place] Assessments - Encounter Diagnoses This section includes the primary and secondary diagnoses documented for the Encounter. Date/Time Primary/Secondary Diagnosis Diagnosis Name Provider Source Dec 06, 2023 10:23 AM PRIMARY Segmental and somatic dysfunction of cervical region DOE GONZALEZ [facility] Dec 06, 2023 10:23 AM SECONDARY Cervicalgia DOE GONZALEZ [facility] Dec 06, 2023 10:23 AM SECONDARY Pain in thoracic spine DOE GONZALEZ [facility] Dec 06, 2023 10:23 AM SECONDARY Segmental and somatic dysfunction of lumbar region DOE GONZALEZ [facility] Dec 06, 2023 10:23 AM SECONDARY Segmental and somatic dysfunction of pelvic region DEO GONZALEZ [facility] Dec 06, 2023 10:23 AM SECONDARY Segmental and somatic dysfunction of thoracic region DOE GONZALEZ [facility] Dec 06, 2023 10:23 AM SECONDARY Spondyls w/o myelopathy or radiculopathy, lumbosacr region DOE GONZALEZ [facility] Plan of Treatment: Future Appointments (+ 6 months) and Future Tests (+/- 45 days) The Plan of Treatment section includes future care activities for the patient from all [place] treatmentfacilities. This section includes future appointments and future orders which are active, pending or scheduled. Future Appointments This section includes appointments that were scheduled to occur 6 months from the date of the Encounter, up to a maximum of 20 appointments. The data comes from all [place] treatment facilities. Appointment Date/Time Appointment Type Appointme nt Facility Name Dec 10, 2023 11:20 AM AMBULATORY - MEDICINE [facility] Dec 19, 2023 08:00 AM AM[facility]ATORY - MEDICINE [facility] Dec 31, 2023 09:30 AM AM[facility]ORY - MEDICINE [facility] Dec 31, 2023 12:00 PM [facility] [place] [facility] Jan 07, 2024 08:20 AM [facility] [place] [facility] Jan 14, 2024 08:20 AM [place] [facility] Jan 14, 2024 08:40 AM AMBULATORY - MEDICINE [facility] Jan 28, 2024 08:20 AM AMBULATORY - MEDICINE [facility] Mar 05, 2024 11:15 AM [facility] [facility] Mar 17, 2024 10:40 AM [facility] Apr 14, 2024 08:40 AM AMBULATORY - MEDICINE [facility] May 15, 2024 08:45 AM AMBULATORY - MEDICINE [facility] 2024 10:00 AM AMBULATORY - MEDICINE [facility] Social History: Smoking Status (Most current) and Tobacco Use (All prior to encounter date) This section includes the most current, and the historical, smoking and tobacco- related health factors from the [place] facility where the Encounter took place. Current Smoking Status This section includes the most current smoking, or tobacco-related health factor, from the [place] facility where the Encounter took place. Date/Time Current Smoking Status Comment Facil ity Oct 21, 2023 08:30 AM VA-TOBACCO FORMER USER [facility] Tobacco Use History This section includes a history of the smoking, or tobacco-related health factors, that were collected on or before the date of the Encounter. The data comes from the [place] facility where the Encounter took place. Date/Time Smoking Status/Tobacco Use Comment F acility Oct 21, 2023 08:30 AM VA-TOBACCO QUIT 15 YRS OR MORE [facility] May 30, 2022 01:00 PM VA-TOBACCO FORMER USER [facility] May 30, 2022 01:00 PM VA-TOBACCO QUIT 15 YRS OR MORE [facility] Encounter Notes: All associated encounter notes This section contains the clinical notes associated to the Encounter. Date/Time Encounter Note(s) Provider Source Nov 26, 2023 01:52 PM CHIROPRACTIC NOTE: LOCAL TITLE: CHIROPRACTIC FOLLOW UP NOTE PB STANDARD TITLE: CHIROPRACTIC NOTE DATE OF NOTE: NOV 26, 2023@13:52 ENTRY DATE: NOV 26, 2023@13:52:22 AUTHOR: DOE GONZALEZ COSIGNER: URGENCY: STATUS: COMPLETED CHIROPRACTIC FOLLOW-UP VISIT Patient's language preference for health information: Yakut Other Communication Methods Needed: SUBJECTIVE: The [place] is a 53 year old MALE being seen in the Chiropractic clinic for follow-up visit. The states his neck is very painful with no relief following his last treatment with his persistent mild lower back pain. The rates his pain level as a [...] # 06/15/2022 MRI SPINE CERVICAL W/O CONT [id number] Verified [id number] 1. Right paracentral herniated disc [...] associated myofascial pain. 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 /misha/ [facility] Signed: 11/26/2023 14:01 DOE GONZALEZ
--- OUTSIDE RECORDS SUMMARY | 2023-12-10 06:20 | XMS_ITS | Encounter Summary ---
Author Name [facility] [place] [facility] [place] Address [address] [place] [address] Care Team Providers Care Service Delivery Supervisor Name Role Phone ESAU GALDAMEZ Primary Care [...] PLAN W/HEALTH SAVINGS ACCOUNT R.P. LUMBE R [facility] Feb [facility], [facility] [id number] [phone] LOBO SCHULTE PATIENT [facility] MENTAL HEALTH R.P. LUMBE R [facility] Feb 12, 2024 [facility] [id number] [phone] LOBO SCHULTE PATIENT MEDIMPACT RX PRESCRIPT ION RX PLAN [facility] Feb 12, 2024 [facility] [id number] [phone] LOBO SCHULTE PATIENT MEDIMPACT RX PRESCRIPT ION RX PLAN [facility] Feb 12, 2024 [facility] [id number] [phone] LOBO SCHULTE PATIENT PRIME THERAPEUTI CS RX PRESCRIPT ION RX PLAN Feb 11, 2019 [facility] [id number] [phone] LOBO SCHULTE PATIENT PRIME THERAPEUTI CS RX PRESCRIPT ION [facility] CARE [facility]I CE Mar 14, 2009 9914 [id number] [phone] LOBO SCHULTE PATIENT Selected Encounter This section includes the information on record at [place] for the Encounter. 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 Date/Time Primary/Secondary Diagnosis Diagnosis Name Provider Source Dec 19, 2023 10:56 AM PRIMARY Segmental and somatic dysfunction of cervical region LISADOE [facility] Dec 19, 2023 10:56 AM SECONDARY Cervicalgia LISADOE Cj [facility] Dec 19, 2023 10:56 AM SECONDARY Other intervertebral disc displacement, lumbosacral region LISADOE Corona [facility] Dec 19, 2023 10:56 AM SECONDARY Pain in thoracic spine LISADOE Corona [facility] Dec 19, 2023 10:56 AM SECONDARY Segmental and somatic dysfunction of lumbar region LISADOE Corona [facility] Dec 19, 2023 10:56 AM SECONDARY Segmental and somatic dysfunction of pelvic region LISADOE Corona [facility] Dec 19, 2023 10:56 AM SECONDARY Segmental and somatic dysfunction of thoracic region LISADOE Cj [facility] Plan of Treatment: Future Appointments (+ 6 months) and Future Tests (+/- 45 days) The Plan of Treatment section includes future care activities for the patient from all [place] treatmentfacilities. This section includes future appointments and future orders which are active, pending or scheduled. Future Appointments This section includes appointments that were scheduled to occur 6 months from the date of the Encounter, up to a maximum of 20 appointments. The data comes from all [place] treatment facilities. Appointment Date/Time Appointment Type Appointme nt Facility Name Dec 19, 2023 08:00 AM [facility] [facility] Dec 31, 2023 09:30 AM [facility] Dec 31, 2023 12:00 PM [facility] [place]IC[place] [facility] Jan 07, 2024 08:20 AM [facility] [place] [facility] Jan 14, 2024 08:20 AM AMBULATORY - MEDICINE [facility] Jan 14, 2024 08:40 AM AMBULATORY - MEDICINE [facility] Jan 28, 2024 08:20 AM AMBULATORY - MEDICINE [facility] Mar 05, 2024 11:15 AM AMBULATORY - SURG[place] [facility] Mar 17, 2024 10:40 AM AMBULATORY - MEDICINE [facility] Apr 14, 2024 08:40 AM AMBULATORY - MEDICINE [facility] May 15, 2024 08:45 AM AMBULATORY - MEDICINE [facility] 2024 10:00 AM AMBULATORY - MEDICINE [facility] Vital Signs: All taken on the encounter date This section contains inpatient and outpatient Vital Signs collected on the date of the Encounter. Date/Time Temperature Pulse Blood Pressure Respiratory Rate SP02 Pain Height Weight Body Mass Index Source Dec 10, 2023 11:20 AM 98.5 93 117/82 [facility] Social History: Smoking Status (Most current) and Tobacco Use (All prior to encounter date) This section includes the most current, and the historical, smoking and tobacco- related health factors from the [place] facility where the Encounter took place. Current Smoking Status This section includes the most current smoking, or tobacco-related health factor, from the [place] facility where the Encounter took place. Date/Time Current Smoking Status Comment Facil ity Oct 21, 2023 08:30 AM VA-TOBACCO FORMER USER [facility] Tobacco Use History This section includes a history of the smoking, or tobacco-related health factors, that were collected on or before the date of the Encounter. The data comes from the [place] facility where the Encounter took place. Date/Time Smoking Status/Tobacco Use Comment F acility Oct 21, 2023 08:30 AM VA-TOBACCO QUIT 15 YRS OR MORE [facility] May 30, 2022 01:00 PM VA-TOBACCO FORMER USER [facility] May 30, 2022 01:00 PM [place]-TOBACCO QUIT 15 YRS OR MORE [facility] Encounter Notes: All associated encounter notes This section contains the clinical notes associated to the Encounter. Date/Time Encounter Note(s) Provider Source Dec 10, 2023 11:15 AM CHIROPRACTIC NOTE: LOCAL TITLE: CHIROPRACTIC FOLLOW UP NOTE PB STANDARD TITLE: CHIROPRACTIC NOTE DATE OF NOTE: DEC 10, 2023@11:15 ENTRY DATE: DEC 10, 2023@11:15:30 AUTHOR: DOE GONZALEZ COSIGNER: URGENCY: STATUS: COMPLETED CHIROPRACTIC FOLLOW-UP VISIT Patient's language preference for health information: Bengali Other Communication Methods Needed: SUBJECTIVE: The [place] is a 53 year old MALE being seen in the Chiropractic clinic for follow-up visit. The [place] states he is very sore after hiking 4 miles over the past weekend, tracking a deer. He describes his neck as out of alignment and his lower back as constantly painful. The rates his pain level as a [...] restricted in all planes of motion. The [place] experience pain with the restricted AROM. LUMBAR/THORACIC [...] # 06/15/2022 MRI SPINE CERVICAL W/O CONT [id number] Verified 3636 1. Right paracentral herniated disc [...] associated myofascial pain. PLAN: This is the second follow up treatment for the of a [...] exercise program and to commit to a halfway exercise plan. /misha/ [facility] Signed: 12/10/2023 11:31 DOE GONZALEZ
--- OUTSIDE RECORDS SUMMARY | 2023-12-19 03:00 | XMS_ITS | Encounter Summary ---
Author Name [facility] [place] [facility] [place] [facility] [place] Address [address] [place] [address] Care Team Providers Care Analog Device Designer Name Role Phone ESAU GALDAMEZ Primary Care [...] PLAN W/HEALTH SAVINGS ACCOUNT R.P. LUMBE R [facility], [facility] [id number] [phone] LOBO SCHULTE PATIENT [facility] MENTAL HEALTH R.P. LUMBE R [facility] Feb 12, [facility] [id number] LOBO SCHULTE PATIENT MEDIMPACT RX PRESCRIPT ION RX PLAN [facility] Feb 12, 2024 [facility] [id number] [phone] LOBO SCHULTE PATIENT MEDIMPACT RX PRESCRIPT ION RX PLAN [facility] Feb 12, 2024 [facility] [id number] [phone] LOBO SCHULTE PATIENT PRIME THERAPEUTI CS RX PRESCRIPT ION RX PLAN Feb 11, 2019 [facility] [id number] [phone] LOBO SCHULTE PATIENT PRIME THERAPEUTI CS RX PRESCRIPT ION HEALT H CARE SERVI CE Mar 14, 2009 9914 [id number] [phone] LOBO SCHULTE PATIENT Selected Encounter This section includes the information on record at [place] for the Encounter. 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 Date/Time Primary/Secondary Diagnosis Diagnosis Name Provider Source Dec 30, 2023 01:26 PM PRIMARY Segmental and somatic dysfunction of cervical region [facility] Dec 30, 2023 01:26 PM SECONDARY Cervicalgia DOE GONZALEZ [facility] Dec 30, 2023 01:26 PM SECONDARY Intvrt disc disorders w radiculopathy, lumbosacral region LISADOE Cj [facility] Dec 30, 2023 01:26 PM SECONDARY Pain in thoracic spine [facility] Dec 30, 2023 01:26 PM SECONDARY Segmental and somatic dysfunction of lumbar region [facility] Dec 30, 2023 01:26 PM SECONDARY Segmental and somatic dysfunction of pelvic region DOE GONZALEZ [facility] Dec 30, 2023 01:26 PM SECONDARY Segmental and somatic dysfunction of thoracic region LISADOE Cj [facility] Plan of Treatment: Future Appointments (+ 6 months) and Future Tests (+/- 45 days) The Plan of Treatment section includes future care activities for the patient from all [place] treatmentfacilities. This section includes future appointments and future orders which are active, pending or scheduled. Future Appointments This section includes appointments that were scheduled to occur 6 months from the date of the Encounter, up to a maximum of 20 appointments. The data comes from all [place] treatment facilities. Appointment Date/Time Appointment Type Appointme nt Facility Name Dec 31, 2023 09:30 AM [facility] [place] [facility] Dec 31, 2023 12:00 PM [facility] [place] [facility] Jan 07, 2024 08:20 AM AM[facility]ORY [place] [facility] Jan 14, 2024 08:20 AM AM[facility]ATORY - MEDICINE [facility] Jan 14, 2024 08:40 AM AM[facility]ORY - MEDICINE [facility] Jan 28, 2024 08:20 AM AM[facility]ORY - MEDICINE [facility] Mar 05, 2024 11:15 AM AMBUL[facility]ORY - SURG[place] [facility] Mar 17, 2024 10:40 AM AMBULATORY - MEDICINE [facility] Apr 14, 2024 08:40 AM AMBULATORY - MEDICINE [facility] May 15, 2024 08:45 AM AMBULATORY - MEDICINE [facility] 2024 10:00 AM AMBULATORY - MEDICINE [facility] Lab Results: +/- 30 days of the encounter This section includes the Chemistry and Hematology Lab Results on record with [place] for the patient. Radiology Reports and Pathology Reports are provided separately, in subsequent sections. Lab Results This section contains the Chemistry/Hematology Results that were resulted 30 days before or 30 daysafter the date of the Encounter. Date/Time Source Result Type Result - Unit Interpretation Reference Range Specimen Type Comment Jan 14, 2024 08:06 AM MEDICINE [facility] HGA1C BLOOD Specimen Type: BLOOD No comment entered. Ordering Provider: ESAU GALDAMEZ Report Released Date/Time: Oct 21, 2023 08:52 AM Reporting Lab: [place] [facility] [address] [place] [address] Performing Lab: [place] [facility] [address] [place] [address] HGA1C 7.1 H 4.0-6.0 Vital Signs: All taken on the encounter date This section contains inpatient and outpatient Vital Signs collected on the date of the Encounter. Date/Time Temperature Pulse Blood Pressure Respiratory Rate SP02 Pain Height Weight Body Mass Index Source Dec 19, 2023 08:00 AM 98.4 89 140/92 MEDIC[facility] Social History: Smoking Status (Most current) and Tobacco Use (All prior to encounter date) This section includes the most current, and the historical, smoking and tobacco- related health factors from the [place] facility where the Encounter took place. Current Smoking Status This section includes the most current smoking, or tobacco-related health factor, from the [place] facility where the Encounter took place. Date/Time Current Smoking Status Comment Archie ity Oct 21, 2023 08:30 AM VA-TOBACCO QUIT 15 YRS OR MORE [facility] Tobacco Use History This section includes a history of the smoking, or tobacco-related health factors, that were collected on or before the date of the Encounter. The data comes from the [place] facility where the Encounter took place. Date/Time Smoking Status/Tobacco Use Comment F acility Oct 21, 2023 08:30 AM VA-TOBACCO QUIT 15 YRS OR MORE [facility] May 30, 2022 01:00 PM [facility] May 30, 2022 01:00 PM VA-TOBACCO QUIT 15 YRS OR MORE [facility] Encounter Notes: All associated encounter notes This section contains the clinical notes associated to the Encounter. Date/Time Encounter Note(s) Provider Source Dec 19, 2023 08:06 AM CHIROPRACTIC NOTE: LOCAL TITLE: CHIROPRACTIC FOLLOW UP NOTE PB STANDARD TITLE: CHIROPRACTIC NOTE DATE OF NOTE: DEC 19, 2023@08:06 ENTRY DATE: DEC 19, 2023@08:06:49 AUTHOR: DOE GONZALEZ COSIGNER: URGENCY: STATUS: COMPLETED CHIROPRACTIC FOLLOW-UP VISIT Patient's language preference for health information: Danish Other Communication Methods Needed: SUBJECTIVE: The [place] is a 53 year old MALE being seen in the Chiropractic clinic for follow-up visit. The describes his neck and back as very sore, but somewhat better since his last treatment. The rates his pain level as a 3/10. PAST MEDICAL HISTORY: see problem list SOCIO-ECONOMIC [...] restricted in all planes of motion. The [place] experience pain with the restricted AROM. LUMBAR/THORACIC [...] # 06/15/2022 MRI SPINE CERVICAL W/O CONT [id number] Verified 3636 1. Right paracentral herniated disc [...] and back pain, we will treat The [place] once every two weeks for six treatments. [...] exercise program and to commit to a longterm exercise plan. /misha/ [facility] Signed: 12/19/2023 08:20 DOE GONZALEZ
--- OUTSIDE RECORDS SUMMARY | 2024-01-14 03:20 | XMS_ITS | Encounter Summary ---
Author Name [facility] [place] [facility] [facility] [place] Address [address] [place] [address] Care Team Providers Care Director Education Name Role Phone SEAU GALDAMEZ Primary Care Provider Unavailabl e Insurance [...] PLAN W/HEALTH SAVINGS ACCOUNT R.P. LUMBE R [facility] Feb 12, 2024 [facility] [id number] [phone] LOBO SCHULTE PATIENT [employer]IOR[employer] HE[employer] MENTAL HEALTH R.P. LUMBE R [facility] Feb 12, 2024 [facility] [id number] [phone] LOBO SCHULTE PATIENT MEDIMPACT RX PRESCRIPT ION RX PLAN [facility] Feb 12, 2024 [facility] [id number] [phone] LOBO SCHULTE PATIENT MEDIMPACT RX PRESCRIPT ION RX PLAN [facility] Feb 12, 2024 [facility] [id number] [phone] LOBO SCHULTE PATIENT PRIME THERAPEUTI CS RX PRESCRIPT ION RX PLAN Feb 11, 2019 [facility] [id number] [phone] LOBO SCHULTE PATIENT PRIME THERAPEUTI CS RX PRESCRIPT ION [facility] Mar 14, 2009 [id number] [phone] LOBO SCHULTE PATIENT Selected Encounter This section includes the information on record at [place] for the Encounter. Date/Time Encounter Type Encounter Description Reason Provider Source Jan 14, 2024 08:20 AM CHIROPRACT MANJ 1-2 [employer] ICD-10-CM M99.01 Segmental and somatic dysfunction of cervical region LISADOE Cj ANDERSON Encounter Template Text not used by [place] Assessments - Encounter Diagnoses This section includes the primary and secondary diagnoses documented for the Encounter. Date/Time Primary/Secondary Diagnosis Diagnosis Name Provider Source Jan 22, 2024 11:06 AM PRIMARY Segmental and somatic dysfunction of cervical region L[facility]ADOE E [facility] Jan 22, 2024 11:06 AM SECONDARY Cervicalgia DOE GONZALEZ [facility] Jan 22, 2024 11:06 AM SECONDARY Pain in thoracic spine DOE GONZALEZ [facility] Jan 22, 2024 11:06 AM SECONDARY Segmental and somatic dysfunction of thoracic region LISADOE E [facility] [place] [facility] Plan of Treatment: Future Appointments (+ 6 months) and Future Tests (+/- 45 days) The Plan of Treatment section includes future care activities for the patient from all [place] treatmentfacilities. This section includes future appointments and future orders which are active, pending or scheduled. Future Appointments This section includes appointments that were scheduled to occur 6 months from the date of the Encounter, up to a maximum of 20 appointments. The data comes from all [place] treatment facilities. Appointment Date/Time Appointment Type Appointme nt Facility Name Jan 28, 2024 08:20 AM AMBULATORY - MEDICINE [facility] Mar 05, 2024 11:15 AM [facility] SURG[facility] Mar 17, 2024 10:40 AM AMBULATORY - MEDICINE [facility] Apr 14, 2024 08:40 AM AMBULATORY - MEDICINE [facility] May 15, 2024 08:45 AM AMBULATORY - MEDICINE [facility] 2024 10:00 AM AMBULATORY - MEDICINE [facility] June 19, 2024 09:30 AM [facility] June 23, 2024 08:00 AM AMBULATORY - MEDICINE [facility] June 30, 2024 08:30 AM AMBULATORY - MEDICINE [facility] Jul 14, 2024 08:40 AM AMBULATORY - MEDICINE [facility] Lab Results: +/- 30 days of the encounter This section includes the Chemistry and Hematology Lab Results on record with [place] for the patient. Radiology Reports and Pathology Reports are provided separately, in subsequent sections. Lab Results This section contains the Chemistry/Hematology Results that were resulted 30 days before or 30 daysafter the date of the Encounter. Date/Time Source Result Type Result - Unit Interpretation Reference Range Specimen Type Comment Jan 14, 2024 08:06 AM [facility] HGA1C BLOOD Specimen Type: BLOOD No comment entered. Ordering Provider: ESAU GALDAMEZ Report Released Date/Time: Oct 21, 2023 08:52 AM Reporting Lab: [place] [facility] [address] [place] [address] Performing Lab: [place] [facility] [address] [place] [address] HGA1C 7.1 H 4.0-6.0 Vital Signs: All taken on the encounter date This section contains inpatient and outpatient Vital Signs collected on the date of the Encounter. Date/Time Temperature Pulse Blood Pressure Respiratory Rate SP02 Pain Height Weight Body Mass Index Source Jan 14, 2024 08:20 AM 97.9 89 [facility] Social History: Smoking Status (Most current) and Tobacco Use (All prior to encounter date) This section includes the most current, and the historical, smoking and tobacco- related health factors from the [place] facility where the Encounter took place. Current Smoking Status This section includes the most current smoking, or tobacco-related health factor, from the [place] facility where the Encounter took place. Date/Time Current Smoking Status Comment Facil ity Oct 21, 2023 08:30 AM [place]-TOBAC[place] QUIT 15 YRS OR MORE [facility] Tobacco Use History This section includes a history of the smoking, or tobacco-related health factors, that were collected on or before the date of the Encounter. The data comes from the [place] facility where the Encounter took place. Date/Time Smoking Status/Tobacco Use Comment F acility Oct 21, 2023 08:30 AM [place]-TOBAC[place] QUIT 15 YRS OR MORE [facility] May 30, 2022 01:00 PM [place]-TOBACCO FORMER USER [facility] May 30, 2022 01:00 PM [place]-TOBACCO QUIT 15 YRS OR MORE [facility] Encounter Notes: All associated encounter notes This section contains the clinical notes associated to the Encounter. Date/Time Encounter Note(s) Provider Source Jan 14, 2024 08:12 AM CHIROPRACTIC NOTE: LOCAL TITLE: CHIROPRACTIC FOLLOW UP NOTE PB STANDARD TITLE: CHIROPRACTIC NOTE DATE OF NOTE: JAN 14, 2024@08:12 ENTRY DATE: JAN 14, 2024@08:12:31 AUTHOR: DOE GONZALEZ COSIGNER: URGENCY: STATUS: COMPLETED CHIROPRACTIC FOLLOW-UP VISIT Patient's language preference for health information: O[place]i Other Communication Methods Needed: SUBJECTIVE: The is a 53 year old MALE being seen in the Chiropractic clinic for follow-up visit. [facility] [place] is scheduled for hernia surgery on 02/19/24. He states his neck is out and in need of an adjustment, while his back is feeling fairly good. The rates his pain level as a 3-4/10. PAST MEDICAL HISTORY: see problem list SOCIO-ECONOMIC [...] # 06/15/2022 MRI SPINE CERVICAL W/O CONT [id number] Verified [id number] 1. Right paracentral herniated disc [...] and back pain, we will treat [facility] [place] once every two weeks for six treatments. [...] program and to commit to a terminal superintendent exercise plan. /misha/ [facility] Signed: 01/14/2024 08:27 ODE GONZALEZ
--- OUTSIDE RECORDS SUMMARY | 2024-01-28 03:20 | XMS_ITS | Encounter Summary ---
Author Name [facility] [facility] Address [address] [place] [address] Care Team Providers Care Gas Regulator Repairer Helper Name Role Phone ESAU GALDAMEZ Primary Care [...] PLAN W/HEALTH SAVINGS ACCOUNT R.P. LUMBE R [facility] Feb 12, 2024 [facility] [id number] [phone] LOBO SCHULTE PATIENT [employer] MENTAL HEALTH R.P. LUMBE R [facility] Feb 12, [address]24 [facility] [id number] LOBO SCHULTE PATIENT MEDIMPACT RX PRESCRIPT ION RX PLAN [facility] Feb 12, 2024 [facility] [id number] [phone] LOBO SCHULTE PATIENT MEDIMPACT RX PRESCRIPT ION RX PLAN [facility] Feb 12, 2024 [facility] [id number] [phone] LOBO SCHULTE PATIENT PRIME THERAPEUTI CS RX PRESCRIPT ION RX PLAN Feb 11, 2019 [facility] [id number] [phone] LOBO SCHULTE PATIENT PRIME THERAPEUTI CS RX PRESCRIPT ION [facility] Mar 14, 2009 [id number] [phone] LOBO SCHULTE PATIENT Selected Encounter This section includes the information on record at [place] for the Encounter. 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 Date/Time Primary/Secondary Diagnosis Diagnosis Name Provider Source Feb 18, 2024 01:55 PM PRIMARY Segmental and somatic dysfunction of cervical region [facility] Feb 18, 2024 01:55 PM SECONDARY Cervicalgia [facility] Feb 18, 2024 01:55 PM SECONDARY Oth intvrt disc degen, lumbosacr w discog bck & lw extrm pn [facility] Feb 18, 2024 01:55 PM SECONDARY Pain in thoracic spine [facility] Feb 18, 2024 01:55 PM SECONDARY Segmental and somatic dysfunction of lumbar region [facility] Feb 18, 2024 01:55 PM SECONDARY Segmental and somatic dysfunction of pelvic region [facility] Feb 18, 2024 01:55 PM SECONDARY Segmental and somatic dysfunction of thoracic region [facility] Plan of Treatment: Future Appointments (+ 6 months) and Future Tests (+/- 45 days) The Plan of Treatment section includes future care activities for the patient from all [place] treatmentfacilities. This section includes future appointments and future orders which are active, pending or scheduled. Future Appointments This section includes appointments that were scheduled to occur 6 months from the date of the Encounter, up to a maximum of 20 appointments. The data comes from all [place] treatment facilities. Appointment Date/Time Appointment Type Appointme nt Facility Name Mar 05, 2024 11:15 AM AMBULATORY - SURGERY [facility] Mar 17, 2024 10:40 AM [facility] [facility] Apr 14, 2024 08:40 AM [facility] May 15, 2024 08:45 AM [facility] 2024 10:00 AM [facility] June 19, 2024 09:30 AM [facility] [facility] June 23, 2024 08:00 AM [facility] June 30, 2024 08:30 AM [facility] Jul 14, 2024 08:40 AM [facility] Jul 21, 2024 03:00 PM [facility] [place] [facility] Jul 28, 2024 08:00 AM AMBULATORY - MEDICINE [facility] Lab Results: +/- 30 days of the encounter This section includes the Chemistry and Hematology Lab Results on record with [place] for the patient. Radiology Reports and Pathology Reports are provided separately, in subsequent sections. Lab Results This section contains the Chemistry/Hematology Results that were resulted 30 days before or 30 daysafter the date of the Encounter. Date/Time Source Result Type Result - Unit Interpretation Reference Range Specimen Type Comment Jan 14, 2024 08:06 AM [facility] HGA1C BLOOD Specimen Type: BLOOD No comment entered. Ordering Provider: ESAU GALDAMEZ Report Released Date/Time: Oct 21, 2023 08:52 AM Reporting Lab: [place] [facility] [address] [place] [address] Performing Lab: [place] [facility] [address] [place] [address] HGA1C 7.1 H 4.0-6.0 Vital Signs: All taken on the encounter date This section contains inpatient and outpatient Vital Signs collected on the date of the Encounter. Date/Time Temperature Pulse Blood Pressure Respiratory Rate SP02 Pain Height Weight Body Mass Index Source Jan 28, 2024 08:20 AM 97.9 100 134/89 [facility] Social History: Smoking Status (Most current) and Tobacco Use (All prior to encounter date) This section includes the most current, and the historical, smoking and tobacco- related health factors from the [place] facility where the Encounter took place. Current Smoking Status This section includes the most current smoking, or tobacco-related health factor, from the [facility] facility where the Encounter took place. Date/Time Current Smoking Status Comment Facil ity Oct 21, 2023 08:30 AM VA-TOBACCO FORMER USER [facility] Tobacco Use History This section includes a history of the smoking, or tobacco-related health factors, that were collected on or before the date of the Encounter. The data comes from the [place] facility where the Encounter took place. Date/Time Smoking Status/Tobacco Use Comment F acility Oct 21, 2023 08:30 AM VA-TOBACCO QUIT 15 YRS OR MORE [facility] May 30, 2022 01:00 PM VA-TOBACCO FORMER USER [facility] May 30, 2022 01:00 PM VA-TOBACCO QUIT 15 YRS OR MORE [facility] Encounter Notes: All associated encounter notes This section contains the clinical notes associated to the Encounter. Date/Time Encounter Note(s) Provider Source Jan 28, 2024 08:32 AM CHIROPRACTIC NOTE: LOCAL TITLE: CHIROPRACTIC FOLLOW UP NOTE PB STANDARD TITLE: CHIROPRACTIC NOTE DATE OF NOTE: JAN 28, 2024@08:32 ENTRY DATE: JAN 28, 2024@08:32:09 AUTHOR: DOE GONZALEZ COSIGNER: URGENCY: STATUS: COMPLETED CHIROPRACTIC FOLLOW-UP VISIT Patient's language preference for health information: Mozambican Other Communication Methods Needed: SUBJECTIVE: The Starrucca is a 53 year old MALE being seen in the Chiropractic clinic for follow-up visit. The is scheduled for hernia surgery on 02/19/24. He states his hernia pain is worsening and his neck is need of an adjustment. The rates his pain level as [...] the restricted AROM. LUMBAR/THORACIC SPINE: MOVEMENT/POSTURE: The Starrucca ambulates without issue. SEGMENTAL DYSFUNCTION: Joint dysfunction [...] # 06/15/2022 MRI SPINE CERVICAL W/O CONT 10717 Verified 3636 1. Right paracentral herniated disc [...] and back pain, we will treat The Starrucca once every two weeks for six additional [...] exercise program and to commit to a detention exercise plan. /misha/ [facility] Signed: 01/28/2024 08:40 DOE GONZALEZ
--- OUTSIDE RECORDS SUMMARY | 2024-03-17 05:40 | XMS_ITS | Encounter Summary ---
Author Name [facility] Organization [facility] [place] Address [address] [place] [address] Care Team Providers Care Junior Account Manager Name Role Phone ESAU GALDAMEZ Primary Care [...] PLAN W/HEALTH SAVINGS ACCOUNT R.P. LUMBE R [facility] Feb 12, 2024 [facility] [id number] [phone] LOBO SCHULTE PATIENT [facility] MENTAL HEALTH R.P. LUMBE R [facility] Feb 12, 2024 [facility] [id number] LOBO SCHULTE PATIENT MEDIMPACT RX PRESCRIPT ION RX PLAN [facility] Feb 12, 2024 [facility] [id number] [phone] LOBO SCHULTE PATIENT MEDIMPACT RX PRESCRIPT ION RX PLAN [facility] Feb 12, 2024 [facility] [id number] [phone] LOBO SCHULTE PATIENT PRIME THERAPEUTI CS RX PRESCRIPT ION RX PLAN Feb 11, 2019 [facility] [id number] [phone] LOBO SCHULTE PATIENT PRIME THERAPEUTI CS RX PRESCRIPT ION [facility] Mar 14, 2009 [id number] [phone] LOBO SCHULTE PATIENT Selected Encounter This section includes the information on record at ID for the Encounter. 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 Date/Time Primary/Secondary Diagnosis Diagnosis Name Provider Source Mar 26, 2024 02:06 PM PRIMARY Segmental and somatic dysfunction of cervical region [facility] Mar 26, 2024 02:06 PM SECONDARY Cervicalgia [facility] Mar 26, 2024 02:06 PM SECONDARY Pain in thoracic spine [facility] Mar 26, 2024 02:06 PM SECONDARY Segmental and somatic dysfunction of thoracic region DOE [place]ALE[place] [facility] Plan of Treatment: Future Appointments (+ 6 months) and Future Tests (+/- 45 days) The Plan of Treatment section includes future care activities for the patient from all ID treatmentfacilities. This section includes future appointments and future orders which are active, pending or scheduled. Future Appointments This section includes appointments that were scheduled to occur 6 months from the date of the Encounter, up to a maximum of 20 appointments. The data comes from all ID treatment facilities. Appointment Date/Time Appointment Type Appointme nt Facility Name Apr 14, 2024 08:40 AM AMBULATORY - MEDICINE [facility] May 15, 2024 08:45 AM AMBULATORY - MEDICINE [facility] 2024 10:00 AM [facility] [place] [facility] June 19, 2024 09:30 AM [facility] June 23, 2024 08:00 AM [facility] [place] [facility] June 30, 2024 08:30 AM [facility] [place] [facility] Jul 14, 2024 08:40 AM [facility] Jul 21, 2024 03:00 PM [facility] [place] [facility] Jul 28, 2024 08:00 AM [facility] - MEDIC[facility] Aug 18, 2024 08:00 AM [facility] - MEDIC[facility] Aug 24, 2024 09:00 AM [facility] [place] [facility] Aug 26, 2024 09:20 AM [facility] MEDICINE [facility] Aug 31, 2024 09:00 AM [facility] [place] [facility] Sep 10, 2024 08:20 AM AMBULATORY - MEDICINE [facility] Vital Signs: All taken on the encounter date This section contains inpatient and outpatient Vital Signs collected on the date of the Encounter. Date/Time Temperature Pulse Blood Pressure Respiratory Rate SP02 Pain Height Weight Body Mass Index Source Mar 17, 2024 10:40 AM 98.1 109 129/83 [facility] Social History: Smoking Status (Most current) and Tobacco Use (All prior to encounter date) This section includes the most current, and the historical, smoking and tobacco- related health factors from the ID facility where the Encounter took place. Current Smoking Status This section includes the most current smoking, or tobacco-related health factor, from the ID facility where the Encounter took place. Date/Time Current Smoking Status Comment Facil ity Oct 21, 2023 08:30 AM VA-TOBACCO QUIT 15 YRS OR MORE [facility] Tobacco Use History This section includes a history of the smoking, or tobacco-related health factors, that were collected on or before the date of the Encounter. The data comes from the ID facility where the Encounter took place. Date/Time Smoking Status/Tobacco Use Comment F acility Oct 21, 2023 08:30 AM [facility] May 30, 2022 01:00 PM VA-TOBACCO FORMER USER [facility] May 30, 2022 01:00 PM VA-TOBACCO QUIT 15 YRS OR MORE [facility] Encounter Notes: All associated encounter notes This section contains the clinical notes associated to the Encounter. Date/Time Encounter Note(s) Provider Source Mar 17, 2024 10:33 AM CHIROPRACTIC NOTE: LOCAL TITLE: CHIROPRACTIC FOLLOW UP NOTE PB STANDARD TITLE: CHIROPRACTIC NOTE DATE OF NOTE: MAR 17, 2024@10:33 ENTRY DATE: MAR 17, 2024@10:33:20 AUTHOR: DOE GONZALEZ COSIGNER: URGENCY: STATUS: COMPLETED CHIROPRACTIC FOLLOW-UP VISIT Patient's language preference for health information: [place] Island[place] Other Communication Methods Needed: SUBJECTIVE: The is a 53 year old MALE being seen in the Chiropractic clinic for follow-up visit. The [place] states his hernia surgery did not go as planned with a follow up surgery scheduled for 04/29/24 and a liver MRI scheduled for tomorrow. He describes his neck and back as very sore and in need of an adjustment. The rates his [...] restricted in all planes of motion. The [place] experience pain with the restricted AROM. LUMBAR/THORACIC SPINE: MOVEMENT/POSTURE: The [place] ambulates without issue. SEGMENTAL DYSFUNCTION: Joint dysfunction [...] # 06/15/2022 MRI SPINE CERVICAL W/O CONT [id number] Verified 3636 1. Right paracentral herniated disc [...] and back pain, we will treat The [place] once every two weeks for six treatments. Prognosis: Fair Today's treatment of the consisted of vibrational massage to relax the paraspinal musculature and chiropractic spinal adjustment of the cervical spine (supine) and thoracic spine (prone) using diversified technique. The procedure was well tolerated by the . GOALS: The goals of treatment include: 1) The reduction of symptomatology. 2) Instructing the in home exercises to improve cervical flexibility and strength, core strength, and lower extremity and core flexibility. 3) Helping the to understand the benefits of long-term continuation of the home exercise program and to commit to a intermodal customer service exercise plan. /misha/ [facility] Signed: 03/17/2024 10:48 DOE GONZALEZ
--- OUTSIDE RECORDS SUMMARY | 2024-04-14 03:40 | XMS_ITS | Encounter Summary ---
Author Name [facility] [place] [facility] [place] Organization [facility] [place] [facility] [place] Address [address] [place] [address] Care Team Providers Care Jack Frame Tender Name Role Phone ESAU GALDAMEZ Primary Care [...] R.P. LUMBE R [facility] Feb 12, 2024 [facility] [id number] [phone] LOBO SCHULTE PATIENT [facility] MENTAL HEALTH R.P. LUMBE R [facility] Feb 12, 2024 [facility] [id number] LOBO SCHULTE PATIENT MEDIMPACT RX PRESCRIPT ION RX PLAN [facility] Feb 12, 2024 [facility] [id number] [phone] LOBO SCHULTE PATIENT MEDIMPACT RX PRESCRIPT ION RX PLAN [facility] Feb 12, 2024 [facility] [id number] [phone] LOBO SCHULTE PATIENT PRIME THERAPEUTI CS RX PRESCRIPT ION RX PLAN Feb [facility] [id number] [phone] LOBO SCHULTE PATIENT PRIME THERAPEUTI CS RX PRESCRIPT ION [facility] Mar 14, 2009 [id number] [phone] LOBO SCHULTE PATIENT Selected Encounter This section includes the information on record at [place] for the Encounter. 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 Date/Time Primary/Secondary Diagnosis Diagnosis Name Provider Source Apr 14, 2024 08:52 AM PRIMARY Segmental and somatic dysfunction of cervical region [facility] [place] [facility] Apr 14, 2024 08:52 AM SECONDARY Cervicalgia [facility]OE [facility] [place] [facility] Apr 14, 2024 08:52 AM SECONDARY Pain in thoracic spine DOE GONZALEZ [facility] [place] [facility] Apr 14, 2024 08:52 AM SECONDARY Segmental and somatic dysfunction of thoracic region [facility]OE [facility] [place] [facility] Plan of Treatment: Future Appointments (+ 6 months) and Future Tests (+/- 45 days) The Plan of Treatment section includes future care activities for the patient from all [place] treatmentfacilities. This section includes future appointments and future orders which are active, pending or scheduled. Future Appointments This section includes appointments that were scheduled to occur 6 months from the date of the Encounter, up to a maximum of 20 appointments. The data comes from all [place] treatment facilities. Appointment Date/Time Appointment Type Appointme nt Facility Name May 15, 2024 08:45 AM [facility] [place] [facility] [facility] 2024 10:00 AM [facility] [facility] June 19, 2024 09:30 AM [facility] [place] [facility] June 23, 2024 08:00 AM [facility] [place] [facility] June 30, 2024 08:30 AM [facility] [place] [facility] Jul 14, 2024 08:40 AM [facility] [place] [facility] Jul 21, 2024 03:00 PM [facility] - [facility]IC[facility] [place] [facility] Jul 28, 2024 08:00 AM AMBULATORY - MEDICINE [facility] Aug 18, 2024 08:00 AM AMBULATORY - MEDICINE [facility] Aug 24, 2024 09:00 AM [facility] [place] [facility] Aug 26, 2024 09:20 AM AMBULATORY - MEDICINE [facility] Aug 31, 2024 09:00 AM [facility] [place] [facility] Sep 10, 2024 08:20 AM AMBULATORY - MEDICINE [facility] Sep 24, 2024 08:20 AM AMBULATORY - MEDICINE [facility] Sep 30, 2024 07:30 AM [facility]IC[facility] [place] [facility] Oct 08, 2024 08:20 AM AMBULATORY - MEDICINE [facility] Vital Signs: All taken on the encounter date This section contains inpatient and outpatient Vital Signs collected on the date of the Encounter. Date/Time Temperature Pulse Blood Pressure Respiratory Rate SP02 Pain Height Weight Body Mass Index Source Apr 14, 2024 08:40 AM 98.1 87 136/88 [facility] Social History: Smoking Status (Most current) and Tobacco Use (All prior to encounter date) This section includes the most current, and the historical, smoking and tobacco- related health factors from the [place] facility where the Encounter took place. Current Smoking Status This section includes the most current smoking, or tobacco-related health factor, from the [place] facility where the Encounter took place. Date/Time Current Smoking Status Comment Facil ity Oct 21, 2023 08:30 AM VA-TOBACCO FORMER USER [facility] Tobacco Use History This section includes a history of the smoking, or tobacco-related health factors, that were collected on or before the date of the Encounter. The data comes from the [place] facility where the Encounter took place. Date/Time Smoking Status/Tobacco Use Comment F acility Oct 21, 2023 08:30 AM VA-TOBACCO QUIT 15 YRS OR MORE [facility] May 30, 2022 01:00 PM VA-TOBACCO FORMER USER [facility] May 30, 2022 01:00 PM [place]-TOBACCO QUIT 15 YRS OR MORE [facility] Encounter Notes: All associated encounter notes This section contains the clinical notes associated to the Encounter. Date/Time Encounter Note(s) Provider Source Apr 14, 2024 08:42 AM CHIROPRACTIC NOTE: LOCAL TITLE: CHIROPRACTIC FOLLOW UP NOTE PB STANDARD TITLE: CHIROPRACTIC NOTE DATE OF NOTE: APR 14, 2024@08:42 ENTRY DATE: APR 14, 2024@08:42:58 AUTHOR: DOE GONZALEZ COSIGNER: URGENCY: STATUS: COMPLETED CHIROPRACTIC FOLLOW-UP VISIT Patient's language preference for health information: Kisw[place] Other Communication Methods Needed: SUBJECTIVE: The [place] is a 53 year old MALE being seen in the Chiropractic clinic for follow-up visit. The states his hernia surgery is scheduled for 04/22/24. He describes his neck and back as out and needing an adjustment. Once the is released following his surgery, he will follow up as needed for future chiropractic treatment. The rates his pain level as [...] # 06/15/2022 MRI SPINE CERVICAL W/O CONT [id number] Verified 3636 1. Right paracentral herniated disc [...] for the of a planned six treatments. With the upcoming surgery, the will reschedule his appointments for when he is released by his surgeon. Prognosis: Fair Today's treatment of the consisted [...] exercise program and to commit to a assisted exercise plan. /misha/ [facility] Signed: 04/14/2024 08:52 DOE GONZALEZ
--- OUTSIDE RECORDS SUMMARY | 2024-05-26 05:00 | XMS_ITS | Encounter Summary ---
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 SEEN IN CLINIC 2024. == == REASON FOR VISIT: 6 month follow up. Recent elevated BP and nose bleeds, having them 3-4 times a day. Are you receiving care anywhere other than the [place]? No HEALTH AND SURGICAL HISTORY: Does patient report using home oxygen? No CURRENT ACTIVE MEDICATIONS FOR REVIEW: Allergies/ADRs (Tool #5) FACILITY ALLERGY/ADR -------- No Remote Allergy/ADR Data available for this patient [facility] Med. Reconciliation (Tool #1) INCLUDED IN THIS LIST: Alphabetical list of active outpatient prescriptions dispensed from this [place] (local) and dispensed from another [place] or [facility] facility (remote) as well as inpatient orders (local pending and active), local clinic medications, locally documented non-VA medications, and local prescriptions that have or been discontinued in the past 90 days. Non-VA Meds Last Documented On: Nov 10, 2021 NOTE The display of VA prescriptions dispensed from another [place] or [facility] facility (remote) is limited to active outpatient prescription entries matched to National Drug File at the originating site and may not include some items such as investigational drugs, compounds, etc. NOT INCLUDED IN THIS LIST: Medications self-entered by the patient into personal health records (i.e. [employer]) are NOT included in this list. Non-VA medications documented outside this [place], remote inpatient orders (regardless of status) and remote clinic medications are NOT included in this list. The patient and provider must always discuss medications the patient is taking, regardless of where the medication was dispensed or obtained. Non-VA APPLE CIDER VINEGAR CAP/TAB TAKE BY MOUTH ONCE A DAY Non-VA ASCORBIC ACID TAB TAKE BY MOUTH ONCE A DAY OUTPT ATORVASTATIN CALCIUM 80MG TAB (Status = Active) TAKE ONE TABLET BY MOUTH EVERY EVENING FOR CHOLESTEROL. REPORT ANY UNEXPLAINED MUSCLE PAIN/WEAKNESS TO PROVIDER. Rx# [id number] Last Released: 04/28/24 Qty/Days Supply: Rx Expiration Date: 11/05/24 Refills Remainin Non-VA CHOLECALCIF 25MCG (D3-1,000UNIT) TAB TAKE ONE TABLET BY MOUTH ONCE A DAY Patient wants to buy from Non-VA pharmacy. Non-VA CINNAMON CAP/TAB TAKE BY MOUTH ONCE A DAY OUTPT EMPAGLIFLOZIN 25MG TAB (Status = Active) TAKE ONE TABLET BY MOUTH ONCE A DAY FOR BLOOD SUGAR CONTROL Rx# [id number] Last Released: 05/22/24 Qty/Days Supply: Rx Expiration Date: 09/18/24 Refills Remainin OUTPT GLIMEPIRIDE 4MG TAB (Status = Active/Suspended) TAKE TWO TABLETS BY MOUTH EVERY MORNING FOR DIABETES TAKE WITH BREAKFAST OR FIRST FOOD. Rx# [id number] Last Released: 04/01/24 Qty/Days Supply: 180 Rx Expiration Date: 10/21/24 Refills Remainin Indication: FOR DIABETES OUTPT LISINOPRIL 40MG TAB (Status = Active) TAKE ONE-HALF TABLET BY MOUTH ONCE A DAY TO LOWER BLOOD PRESSURE/ PROTEINURIA Rx# [id number] Last Released: 05/05/24 Qty/Days Supply: 45 Rx Expiration Date: 05/05/25 Refills Remainin OUTPT OMEPRAZOLE 20MG EC CAP (Status = ) TAKE ONE CAPSULE BY MOUTH EVERY MORNING TO LOWER STOMACH ACID. TAKE 30 MINUTES PRIOR TO FOOD. Rx# [id number] Last Released: 07/05/23 Qty/Days Supply: 90 Rx Expiration Date: 04/18/24 Refills Remainin OUTPT ROPINIROLE HCL 2MG TAB (Status = Active) TAKE ONE TABLET BY MOUTH AT BEDTIME FOR RESTLESS LEG SYNDROME Rx# [id number] Last Released: 04/28/24 Qty/Days Supply: 90 Rx Expiration Date: 11/05/24 Refills Remainin Indication: FOR RESTLESS LEG SYNDROME OUTPT SEMAGLUTIDE 0.25MG/0.375ML INJ PEN 3ML (Status = Active) INJECT 0.5MG UNDER THE SKIN EVERY WEEK FOR DIABETES Rx# [id number] Last Released: 05/25/24 Qty/Days Supply: 03/10 Rx Expiration Date: 10/21/24 Refills Remainin Indication: FOR DIABETES OUTPT TAMSULOSIN HCL 0.4MG CAP (Status = ) TAKE ONE CAPSULE BY MOUTH EVERY EVENING FOR BENIGN PROSTATIC HYPERPLASIA APPROXIMATELY 30 MINUTES AFTER THE SAME MEAL EACH DAY Rx# [id number] Last Released: 02/14/24 Qty/Days Supply: Rx Expiration Date: 04/18/24 Refills Remainin Indication: FOR BENIGN PROSTATIC HYPERPLASIA Non-VA TURMERIC CAP/TAB TAKE BY MOUTH SUPPLIES OUTPT ACCU-CHEK GUIDE (GLUCOSE) TEST STRIP (Status = ) USE 1 STRIP FOR BLOOD TEST TWICE A DAY FOR BLOOD SUGAR MONITORING Rx# [id number] Last Released: 12/25/23 Qty/Days Supply: / Rx Expiration Date: 03/18/24 Refills Remainin Indication: FOR BLOOD SUGAR MONITORING PHARMACY TERMS AND POSSIBLE PATIENT ACTIONS INPT = [place] inpatient order IV = [place] intravenous medication OUTPT = [place] outpatient prescription PHARMACY POSSIBLE PATIENT TERMS EXPLANATION ACTIONS -------- ----- ACTIVE A prescription that can be If you have refills, filled at the local [place] pharmacy. you may request a refill of this prescription from your VA pharmacy. CLINIC A medication you received during If you have questions a visit to a VA clinic or about this medication emergency department. contact your VA healthcare team. DISCONTINUED A prescription your provider has Contact your VA stopped. It is no longer healthcare team if you available to be sent to you or need more of this picked up at the [place] pharmacy medication. window. A prescription which is [...] the VA. Or, it may be an dnmy-ghe-ruqonaq (OTC), herbal, dietary supplements or sample medication. [...] An active prescription that is Contact your [place] not scheduled to be filled yet. pharmacy if you need You should receive it before this medication now. you run out. Medication list reviewed with Patient Patient/Caregiver reports taking meds other than as directed/ordered: Patient is taking 2 tablets of ropinirole IS PATIENT TAKING ANY OVER THE COUNTER MEDICATIONS, SUCH VITAMINS OR HERBAL SUPPLEMENTS, INCLUDING ANY MEDICATIONS PRESCRIBED BY ANOTHER PHYSICIAN? No Does patient have any new allergies to report since last visit? NO VITALS: TEMPERATURE: 97.7 F [36.5 C] (05/15/2024 09:05) BP: 127/90 (05/15/2024 09:05) RESP: 18 (12/31/2023 16:05) PULSE: 96 (05/15/2024 09:05) HT: 69.0 in [175.3 cm] (10/21/2023 08:36) WT: 268.3 lb [121.70 kg] (12/31/2023 16:05) BMI: 39.7 PAIN ASSESSMENT: (Most Recent Pain Score in Vitals Package: 4 (10/21/2023 08:36) ) The patient indicated that they and [...] Now let us serve you. At the [facility], we strive to provide you with exceptional [...] Not At All SPIRITUAL ASSESSMENT: Are there jew practices or spiritual concerns you want the cashier greeter, your physician, and other health care team members to immediately know about? No Patient advised to call the clinic for any concerns, questions, or symptoms. Patient and/or caregiver verbalized understanding of plan of care. RHS Screen - VS: RHS Screen Session Format: Face to Face Environmental Check Upon inquiry, the individual reports that the environment is safe to proceed. Informed Consent to Screen and Document The individual consents to proceed with screening. The individual consents to documentation of responses. PRIMARY SCREEN: In the past 12 months, how often did a current or former intimate partner (e.g., boyfriend, girlfriend, , , sexual partner): 1. Scream or curse at you Never 2. Insult or talk down to you Never 3. Threaten you with harm Never 4. Physically hurt you Never 5. Force or pressure you to have sexual contact against your will, or when you were unable to say no Never The HITS tool (items 1-4 above) is [place] copyright protected by Sekou Frazier MD, and the user has full rights to use it throughout the [place] system. PRIMARY SCREEN RESULT: The Primary Screen is NEGATIVE. The individual answered never to all forms of IPV above (i.e., answered never to all 5 items) The individual accepts education and/or resources: Other: EDUCATION: Other: Not needed COVID-19 Immunization - L,N,P,PH,U: Refused Moderna Monovalent COVID-19 vaccine Immunization: COVID-19 (MODERNA), MRNA, LNP-S, PF, 50 MCG/0.5 ML (AGES 12+ YEARS) Refusal Reason: PATIENT DECISION Patient refuses all immunization(s) in the COVID-19 group Date Documented: 05/26/24 11:02 Homelessness/Food Insecurity Screen - DI,L,N,P,PH,PS,S,U: In the past 2 months, have you been living in stable housing that you own, rent, or stay in as part of a household? Yes - Living in stable housing. Are you worried or concerned that in the next 2 months you may NOT have stable housing that you own, rent, or stay in as part of a household? No - Not worried about housing near future The reports the following: Within the past 12 months, you worried whether your food would run out before you got money to buy more. Never true Within the past 12 months, the food you bought just didn't last and you didn't have money to get more. Never true Influenza Immunization - L,N,P,PH,U: Deferral / Refusal The patient declines to receive the recommended dose of seasonal influenza vaccine. Immunization: INFLUENZA, UNSPECIFIED FORMULATION Refusal Reason: PATIENT DECISION Patient refuses all immunization(s) in the FLU group Date Documented: 05/26/24 11:03 Pneumococcal Conjugate Vaccine (PCV15/PCV20/PCV21) - L,N,P,PH,U: Refuses PCV vaccine Immunization: PNEUMOCOCCAL CONJUGATE, UNSPECIFIED FORMULATION Refusal Reason: PATIENT DECISION Patient refuses all immunization(s) in the PneumoPCV group Date Documented: 05/26/24 11:03 Pain Assessment: - PAIN ASSESSMENT: .. This patient's last pain assessment score was: 4 (2024 10:31). A detailed pain assessment showed the following: Pain characteristics (per patient's own words) Aching Location of current pain Low Back Onset/Duration of the current pain. Constant or variable? More than a year Patient's self identified pain goal: 0 Weight Control/Nutrition Counseling: * Patient declined nutrition and weight screen counseling at this encounter. Herpes Zoster (Shingles) Vaccine - L,N,P,PH,U: The patient declines to receive the recommended dose of zoster (shingles) vaccine. Immunization: ZOSTER RECOMBINANT Refusal Reason: PATIENT DECISION Patient refuses all immunization(s) in the ZOSTER group Date Documented: 05/26/24 11:04 PAVE Foot Check - L,N,P,PH,PO,PT,U: A complete foot check was completed at this encounter. VISUAL INSPECTION: Includes inspection for skin breaks, deformity, erythema, trauma, pallor on elevation, dependent rubor, nail deformities, extensive callus and pitting edema. Visual exam results: Abnormal Observations: Other: Left great toenail has been removed PEDAL PULSES: Includes palpation of dorsalis and posterior tibial pulses and signs/symptoms of vascular compromise like pain, pallor, parasthesia or paralysis. Present (even if diminished) SENSORY CHECK: Includes 10 gram Monofilament ([place]) test of sensation. Intact (Greater than or equal to 80% of sites checked) Abnormal (Less than 80% of sites checked): Intact LOW-RISK: LOW RISK INFORMATION PROVIDED: 1. Advised patient not to walk barefoot. 2. Explained the importance of daily foot checks for changes. 3. Stressed the importance of daily foot hygiene, including bathing and complete drying. Patient/Nurse Interview: * * Patient stated that adequate information was received regarding the condition and/or treatment. Comment: If you have any questions please call the clinic Per [facility] Directive 1605.06, wristband documentation: Patient wristband was removed and destroyed by (staff name) Aram Lobo RN and placed in the designated [employer] bin. /misha/ Liliana Lobo RN,BSN [place], [place] Signed: 2024 11:06 LILIANA LOBO HI NITO
--- OUTSIDE RECORDS SUMMARY | 2024-06-23 03:00 | XMS_ITS | Encounter Summary ---
Author Name [facility] [facility] [place] Address [address] [place] [address] Care Team Providers Care Talent Director Name Role Phone ESAU GALDAMEZ Primary Care [...] PLAN W/HEALTH SAVINGS ACCOUNT R.P. LUMBE R [facility] Feb 12, 2024 [facility] [id number] [phone] LOBO SCHULTE PATIENT [employer] MENTAL HEALTH R.P. LUMBE R [facility] Feb 12, 2024 [facility] [id number] LOBO SCHULTE PATIENT MEDIMPACT RX PRESCRIPT ION RX PLAN [facility] Feb 12, 2024 [facility] [id number] [phone] LOBO SCHULTE PATIENT MEDIMPACT RX PRESCRIPT ION RX PLAN [facility] Feb 12, 2024 [facility] [id number] [phone] LOBO SCHULTE PATIENT PRIME THERAPEUTI CS RX PRESCRIPT ION RX PLAN Feb 11, 2019 [facility] [id number] [phone] LOBO SCHULTE PATIENT PRIME THERAPEUTI CS RX PRESCRIPT ION [facility] Mar 14, 2009 [id number] [phone] LOBO SCHULTE PATIENT Selected Encounter This section includes the information on record at [place] for the Encounter. 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 Date/Time Primary/Secondary Diagnosis Diagnosis Name Provider Source June 23, 2024 08:26 AM PRIMARY Segmental and somatic dysfunction of cervical region [facility] June 23, 2024 08:26 AM SECONDARY Cervicalgia [facility] June 23, 2024 08:26 AM SECONDARY Oth intvrt disc degen, lumbosacr w discog bck & lw extrm pn DOE GONZALEZ [facility] June 23, 2024 08:26 AM SECONDARY Pain in thoracic spine [facility] June 23, 2024 08:26 AM SECONDARY Segmental and somatic dysfunction of lumbar region [facility] June 23, 2024 08:26 AM SECONDARY Segmental and somatic dysfunction of pelvic region [facility] June 23, 2024 08:26 AM SECONDARY Segmental and somatic dysfunction of thoracic region [facility] Plan of Treatment: Future Appointments (+ 6 months) and Future Tests (+/- 45 days) The Plan of Treatment section includes future care activities for the patient from all [place] treatmentfacilities. This section includes future appointments and future orders which are active, pending or scheduled. Future Appointments This section includes appointments that were scheduled to occur 6 months from the date of the Encounter, up to a maximum of 20 appointments. The data comes from all [place] treatment facilities. Appointment Date/Time Appointment Type Appointme nt Facility Name June 30, 2024 08:30 AM AMBULATORY - MEDICINE [facility] Jul 14, 2024 08:40 AM [facility] [place] [facility] Jul 21, 2024 03:00 PM [facility] [place] [facility] Jul 28, 2024 08:00 AM [facility] Aug 18, 2024 08:00 AM [facility] Aug 24, 2024 09:00 AM [facility] - [facility]IC[facility] [place] [facility] Aug 26, 2024 09:20 AM [facility] Aug 31, 2024 09:00 AM [facility] - [facility]IC[facility] [place] [facility] Sep 10, 2024 08:20 AM [facility] Sep 24, 2024 08:20 AM [facility] Sep 30, 2024 07:30 AM [facility] - [facility]IC[facility] [place] [facility] Oct 08, 2024 08:20 AM [facility] Oct 28, 2024 10:40 AM AMBULATORY - MEDICINE [facility] Nov 05, 2024 08:20 AM AMBULATORY - MEDICINE [facility] Nov 12, 2024 08:20 AM [facility] Nov 19, 2024 08:20 AM [facility] - MEDICINE [facility] Nov 19, 2024 08:30 AM [facility] Vital Signs: All taken on the encounter date This section contains inpatient and outpatient Vital Signs collected on the date of the Encounter. Date/Time Temperature Pulse Blood Pressure Respiratory Rate SP02 Pain Height Weight Body Mass Index Source June 23, 2024 08:00 AM 98.2 84 138/95 [facility] Social History: Smoking Status (Most current) and Tobacco Use (All prior to encounter date) This section includes the most current, and the historical, smoking and tobacco- related health factors from the [place] facility where the Encounter took place. Current Smoking Status This section includes the most current smoking, or tobacco-related health factor, from the [place] facility where the Encounter took place. Date/Time Current Smoking Status Comment Facil ity Oct 21, 2023 08:30 AM VA-TOBACCO FORMER USER [facility] Tobacco Use History This section includes a history of the smoking, or tobacco-related health factors, that were collected on or before the date of the Encounter. The data comes from the [place] facility where the Encounter took place. Date/Time Smoking Status/Tobacco Use Comment F acility Oct 21, 2023 08:30 AM VA-TOBACCO QUIT 15 YRS OR MORE [facility] May 30, 2022 01:00 PM VA-TOBACCO FORMER USER [facility] May 30, 2022 01:00 PM VA-TOBACCO QUIT 15 YRS OR MORE [facility] Encounter Notes: All associated encounter notes This section contains the clinical notes associated to the Encounter. Date/Time Encounter Note(s) Provider Source June 23, 2024 08:11 AM CHIROPRACTIC NOTE: LOCAL TITLE: CHIROPRACTIC FOLLOW UP NOTE PB STANDARD TITLE: CHIROPRACTIC NOTE DATE OF NOTE: JUNE 23, 2024@08:11 ENTRY DATE: JUNE 23, 2024@08:11:15 AUTHOR: DOE GONZALEZ COSIGNER: URGENCY: STATUS: COMPLETED CHIROPRACTIC FOLLOW-UP VISIT Patient's language preference for health information: Chinese Other Communication Methods Needed: SUBJECTIVE: The Colon is a 54 year old MALE being seen in the Chiropractic clinic for follow-up visit. The states his hernia surgery went well and no longer has work restrictions. He states his neck and back are in need of an adjustment due to the amount of time since his last treatments. The rates his pain level as a 7/10. PAST MEDICAL HISTORY: see problem list [employer]IO[employer]ECON[employer]IC [...] # 06/15/2022 MRI SPINE CERVICAL W/O CONT 81101 Verified [id number] 1. Right paracentral herniated disc [...] for the of a planned six treatments. We will follow up with the once every two weeks for six treatments. Prognosis: Fair Today's treatment of the consisted of vibrational massage and mechanical traction to relax the paraspinal musculature and chiropractic spinal adjustment of the cervical spine (supine) and thoracic spine (prone) using diversified technique and adjustment of the lumbar spine (prone) and pelvis (prone) using Isaac technique. The procedure [...] exercise program and to commit to a intermission coordinator exercise plan. /misha/ [facility] Signed: 06/23/2024 08:24 DOE GONZALEZ
--- OUTSIDE RECORDS SUMMARY | 2024-06-30 03:30 | XMS_ITS | Encounter Summary ---
Author Name [facility] [place] [facility] [place] Address [address] [place] [id number] Care Team Providers Care Mathematics Education Professor Name Role Phone ESAU GALDAMEZ Primary Care [...] R [facility] Feb 12, 2024 [facility] [id number] [phone] LOBO SCHULTE PATIENT [facility] MENTAL HEALTH R.P. LUMBE R [facility] Feb 12, 2024 [facility] [id number] LOBO SCHULTE PATIENT MEDIMPACT RX PRESCRIPT ION RX PLAN [facility] Feb 12, 2024 [facility] [id number] [phone] LOBO SCHULTE PATIENT MEDIMPACT RX PRESCRIPT ION RX PLAN [facility] Feb 12, 2024 [facility] [phone] LOBO SCHULTE PATIENT PRIME THERAPEUTI CS RX PRESCRIPT ION RX PLAN Feb 11, 2019 [facility] [id number] [phone] LOBO SCHULTE PATIENT PRIME THERAPEUTI CS RX PRESCRIPT ION [facility] Mar 14, 2009 [id number] [phone] LOBO SCHULTE PATIENT Selected Encounter This section includes the information on record at [place] for the Encounter. Date/Time Encounter Type Encounter Description Reason Provider Source June 30, 2024 08:30 AM OFF/OP EST JUNE X REQ PHY/QHP PRIMARY CARE/MEDICINE ICD-10-CM S20.96XA Insect bite (nonvenomous) of unsp parts of thorax, init CUSTRED,CHACE J IHE Encounter Template Text not used by [place] Assessments - Encounter Diagnoses This section includes the primary and secondary diagnoses documented for the Encounter. Date/Time Primary/Secondary Diagnosis Diagnosis Name Provider Source July 08, 2024 02:12 PM PRIMARY Insect bite (nonvenomous) of unsp parts of thorax, init CUSTOLEGARIO,CHACE J [facility] Plan of Treatment: Future Appointments (+ 6 months) and Future Tests (+/- 45 days) The Plan of Treatment section includes future care activities for the patient from all [place] treatmentfacilities. This section includes future appointments and future orders which are active, pending or scheduled. Future Appointments This section includes appointments that were scheduled to occur 6 months from the date of the Encounter, up to a maximum of 20 appointments. The data comes from all [place] treatment facilities. Appointment Date/Time Appointment Type Appointme nt Facility Name Jul 14, 2024 08:40 AM AMBULATORY - MEDICINE [facility] Jul 21, 2024 03:00 PM AMBULATORY - MEDICINE [facility] Jul 28, 2024 08:00 AM [facility] [place] [facility] [facility] Aug 18, 2024 08:00 AM [facility] [place] [facility] [facility] Aug 24, 2024 09:00 AM [facility] - [facility]IC[facility] [facility] Aug 26, 2024 09:20 AM [facility] [place] [facility] Aug 31, 2024 09:00 AM [facility] - [facility]IC[facility] [facility] [place] Sep 10, 2024 08:20 AM [facility] [place] [facility] Sep 24, 2024 08:20 AM AMBULATORY - MEDICINE [facility] Sep 30, 2024 07:30 AM AMBULATORY - MEDICINE [place] Oct 08, 2024 08:20 AM AMBULATORY - MEDICINE [facility] Oct 28, 2024 10:40 AM AMBULATORY - MEDICINE [facility] Nov 05, 2024 08:20 AM AMBULATORY - MEDICINE [facility] Nov 12, 2024 08:20 AM AMBULATORY - MEDICINE [facility] Nov 19, 2024 08:20 AM AMBULATORY - MEDICINE [facility] Nov 19, 2024 08:30 AM AMBULATORY - MEDICINE [facility] Vital Signs: All taken on the encounter date This section contains inpatient and outpatient Vital Signs collected on the date of the Encounter. Date/Time Temperature Pulse Blood Pressure Respiratory Rate SP02 Pain Height Weight Body Mass Index Source June 30, 2024 08:50 AM 98.3 88 134/88 [facility] Social History: Smoking Status (Most current) and Tobacco Use (All prior to encounter date) This section includes the most current, and the historical, smoking and tobacco- related health factors from the [place] facility where the Encounter took place. Current Smoking Status This section includes the most current smoking, or tobacco-related health factor, from the [place] facility where the Encounter took place. Date/Time Current Smoking Status Comment Facil ity Oct 21, 2023 08:30 AM VA-TOBACCO FORMER USER [facility] Tobacco Use History This section includes a history of the smoking, or tobacco-related health factors, that were collected on or before the date of the Encounter. The data comes from the [place] facility where the Encounter took place. Date/Time Smoking Status/Tobacco Use Comment F acility Oct 21, 2023 08:30 AM VA-TOBACCO QUIT 15 YRS OR MORE [facility] May 30, 2022 01:00 PM VA-TOBACCO FORMER USER [facility] May 30, 2022 01:00 PM [place]-TOBACCO QUIT 15 YRS OR MORE [facility] Encounter Notes: All associated encounter notes This section contains the clinical notes associated to the Encounter. Date/Time Encounter Note(s) Provider Source June 30, 2024 11:04 AM NURSING PROGRESS N OTE: LOCAL TITLE: NURSING NOTE PB STANDARD TITLE: NURSING PROGRESS NOTE DATE OF NOTE: JUNE 30, 2024@11:04 ENTRY DATE: JUNE 30, 2024@11:04:29 AUTHOR: CUSTRED,CHACE J EXP COSIGNER: URGENCY: STATUS: COMPLETED Blood Pressure: 134/88 Pulse: 88 Temperature: 98.3 F (36.8 C) Pulse Oximetry: 98% Active Outpatient Medications: Active Outpatient Medications (including Supplies): Active Outpatient Medications Status 1) ATORVASTATIN CALCIUM 80MG TAB TAKE ONE TABLET BY MOUTH EVERY ACTIVE (S) EVENING FOR CHOLESTEROL. REPORT ANY UNEXPLAINED MUSCLE PAIN/WEAKNESS TO PROVIDER. 2) EMPAGLIFLOZIN 25MG TAB TAKE ONE TABLET BY MOUTH ONCE A DAY ACTIVE FOR BLOOD SUGAR CONTROL 3) GLIMEPIRIDE 4MG TAB TAKE TWO TABLETS BY MOUTH EVERY MORNING ACTIVE TAKE WITH BREAKFAST OR FIRST FOOD. Indication: FOR DIABETES 4) LISINOPRIL 40MG TAB TAKE ONE TABLET BY MOUTH ONCE A DAY TO ACTIVE (S) LOWER BLOOD PRESSURE/ PROTEINURIA Indication: FOR HIGH BLOOD PRESSURE 5) ROPINIROLE HCL 2MG TAB TAKE ONE TABLET BY MOUTH THREE TIMES ACTIVE (S) A DAY NEEDED Indication: FOR RESTLESS LEG SYNDROME 6) SEMAGLUTIDE 1MG/0.75ML INJ PEN 3ML INJECT 1MG UNDER THE SKIN ACTIVE (S) EVERY WEEK Indication: FOR DIABETES Active Non-VA Medications Status 1) Non-VA APPLE CIDER VINEGAR CAP/TAB BY MOUTH ONCE A DAY ACTIVE 2) Non-VA ASCORBIC ACID TAB BY MOUTH ONCE A DAY ACTIVE 3) Non-VA CHOLECALCIF 25MCG (D3-1,000UNIT) TAB 1000UNIT BY ACTIVE MOUTH ONCE A DAY 4) Non-VA CINNAMON CAP/TAB BY MOUTH ONCE A DAY ACTIVE 5) Non-VA TURMERIC CAP/TAB BY MOUTH ACTIVE CC: [place] presents to clinic stating recent tick bite. Subjective: states he removed a small tick from right side of scrotum last evening. feels tick was removed in entirety. Denies any pain, swelling, or discomfort. States minimal time of exposure as he does not feel it was in very long. O/A: alert and oriented. Area of bite assessed. Small raised area noted with no remaining tick at site. No redness, swelling, or rash noted. No open areas or infection noted. Plan/ Intervention: Discussed with PCP. Treat with OTC anti-itch cream as needed. Return to clinic if any signs of infection such as redness, swelling, warmth, drainage, or if rash develops. [place] reports understanding. RTC: As needed or as scheduled. Per [facility] Directive 1605.06, wristband documentation: Patient wristband was removed and destroyed by (staff name) Chace Leiva RN and placed in the designated [employer] bin. /es/ CHACE GILL RN [facility] Signed: 06/30/2024 11:12 CHACE LEIVA [facility]
--- OUTSIDE RECORDS SUMMARY | 2024-07-14 03:40 | XMS_ITS | Encounter Summary ---
Author Name [facility] [place] Address [address] [place] [address] Care Team Providers Care Loading Unit Operator Powder Charging Name Role Phone ESAU GALDAMEZ Primary Care [...] PLAN W/HEALTH SAVINGS ACCOUNT R.P. LUMBE R [facility] Feb 12, 2024 [facility] [id number] LOBO SCHULTE PATIENT [facility] MENTAL HEALTH R.P. LUMBE R [facility] Feb 12, 2024 [facility] [id number] LOBO SCHULTE PATIENT MEDIMPACT RX PRESCRIPT ION RX PLAN [facility] Feb 12, 2024 [facility] [phone] LOBO SCHULTE PATIENT MEDIMPACT RX PRESCRIPT ION RX PLAN [facility] Feb 12, 2024 [facility] [phone] LOBO SCHULTE PATIENT PRIME THERAPEUTI CS RX PRESCRIPT ION RX PLAN Feb 11, 2019 [facility] [id number] [phone] LOBO SCHULTE PATIENT PRIME THERAPEUTI CS RX PRESCRIPT ION HEALT H CARE SERVI CE Mar 14, 2009 [id number] [phone] LOBO SCHULTE PATIENT Selected Encounter This section includes the information on record at [place] for the Encounter. Date/Time Encounter Type Encounter Description Reason Provider Source Jul 14, 2024 08:40 AM CHIROPRACT MANJ 3-4 [employer] ICD-10-CM M99.01 Segmental and somatic dysfunction of cervical region DOE GONZALEZ MONICA Encounter Template Text not used by [place] Assessments - Encounter Diagnoses This section includes the primary and secondary diagnoses documented for the Encounter. Date/Time Primary/Secondary Diagnosis Diagnosis Name Provider Source Jul 14, 2024 08:48 AM PRIMARY Segmental and somatic dysfunction of cervical region [facility] [place] Jul 14, 2024 08:48 AM SECONDARY Cervicalgia DOE GONZALEZ [facility] Jul 14, 2024 08:48 AM SECONDARY Oth intvrt disc degen, lumbosacr w discog bck & lw extrm pn LISADOE [place] [facility] Jul 14, 2024 08:48 AM SECONDARY Pain in thoracic spine DOE GONZALEZ [facility] Jul 14, 2024 08:48 AM SECONDARY Segmental and somatic dysfunction of lumbar region [facility] Jul 14, 2024 08:48 AM SECONDARY Segmental and somatic dysfunction of pelvic region DOE GONZALEZ [facility] [place] [facility] Jul 14, 2024 08:48 AM SECONDARY Segmental and somatic dysfunction of thoracic region DOE GONZALEZ [facility] [place] Plan of Treatment: Future Appointments (+ 6 months) and Future Tests (+/- 45 days) The Plan of Treatment section includes future care activities for the patient from all [place] treatmentfacilities. This section includes future appointments and future orders which are active, pending or scheduled. Future Appointments This section includes appointments that were scheduled to occur 6 months from the date of the Encounter, up to a maximum of 20 appointments. The data comes from all [place] treatment facilities. Appointment Date/Time Appointment Type Appointme nt Facility Name Jul 21, 2024 03:00 PM AMBULATORY - [facility]IC[facility] Jul 28, 2024 08:00 AM [facility] [place] [facility] [place] [facility] Aug 18, 2024 08:00 AM [facility] [place] [facility] Aug 24, 2024 09:00 AM [facility] [place] [facility] Aug 26, 2024 09:20 AM [facility] Aug 31, 2024 09:00 AM AM[facility] - [facility]IC[facility] [place] [facility] Sep 10, 2024 08:20 AM [facility] Sep 24, 2024 08:20 AM [facility] Sep 30, 2024 07:30 AM AM[facility]IC[facility] [place] [facility] Oct 08, 2024 08:20 AM [facility] Oct 28, 2024 10:40 AM [facility] Nov 05, 2024 08:20 AM [facility] Nov 12, 2024 08:20 AM AMBULATORY - MEDICINE [facility] Nov 19, 2024 08:20 AM AMBULATORY - MEDICINE [facility] Nov 19, 2024 08:30 AM AMBULATORY - MEDICINE [facility] Vital Signs: All taken on the encounter date This section contains inpatient and outpatient Vital Signs collected on the date of the Encounter. Date/Time Temperature Pulse Blood Pressure Respiratory Rate SP02 Pain Height Weight Body Mass Index Source Jul 14, 2024 08:40 AM 99 103 135/96 [facility] Social History: Smoking Status (Most current) and Tobacco Use (All prior to encounter date) This section includes the most current, and the historical, smoking and tobacco- related health factors from the [place] facility where the Encounter took place. Current Smoking Status This section includes the most current smoking, or tobacco-related health factor, from the [place] facility where the Encounter took place. Date/Time Current Smoking Status Comment Facil ity Oct 21, 2023 08:30 AM [place]-TOBACCO QUIT 15 YRS OR MORE [facility] Tobacco Use History This section includes a history of the smoking, or tobacco-related health factors, that were collected on or before the date of the Encounter. The data comes from the [place] facility where the Encounter took place. Date/Time Smoking Status/Tobacco Use Comment F acility Oct 21, 2023 08:30 AM [place]-TOBACCO QUIT 15 YRS OR MORE [facility] May 30, 2022 01:00 PM [facility]ACCO [facility] May 30, 2022 01:00 PM VA-TOBACCO QUIT 15 YRS OR MORE [facility] Encounter Notes: All associated encounter notes This section contains the clinical notes associated to the Encounter. Date/Time Encounter Note(s) Provider Source Jul 14, 2024 08:37 AM CHIROPRACTIC NOTE: LOCAL TITLE: CHIROPRACTIC FOLLOW UP NOTE PB STANDARD TITLE: CHIROPRACTIC NOTE DATE OF NOTE: JUL 14, 2024@08:37 ENTRY DATE: JUL 14, 2024@08:37:04 AUTHOR: DOE GONZALEZ COSIGNER: URGENCY: STATUS: COMPLETED CHIROPRACTIC FOLLOW-UP VISIT Patient's language preference for health information: Bhutanese Other Communication Methods Needed: SUBJECTIVE: The is a 54 year old MALE being seen in the Chiropractic clinic for follow-up visit. The [place] states he has been dealing with tick bites, while his neck and back pain has not been too bad, but a constant source of pain. The rates his pain level as [...] restricted in all planes of motion. The [place] experience pain with the restricted AROM. LUMBAR/THORACIC SPINE: MOVEMENT/POSTURE: The [place] ambulates without issue. SEGMENTAL DYSFUNCTION: Joint dysfunction [...] # 06/15/2022 MRI SPINE CERVICAL W/O CONT [id number] Verified 3636 1. Right paracentral herniated disc [...] exercise program and to commit to a alf exercise plan. /misha/ [facility] Signed: 07/14/2024 08:48 DOE GONZALEZ
--- OUTSIDE RECORDS SUMMARY | 2024-07-21 10:00 | XMS_ITS | Encounter Summary ---
Author Name [facility] [place] Organization [place] Address [address] [place] [address] Care Team Providers Care Cloth Winding Supervisor Name Role Phone ESAU GALDAMEZ Primary [...] PLAN W/HEALTH SAVINGS ACCOUNT R.P. LUMBE R [facility] Feb 12, 2024 [facility] [id number] [phone] LOBO SCHULTE PATIENT [facility] MENTAL HEALTH R.P. LUMBE R [facility] Feb 12, 2024 [facility] [id number] LOBO SCHULTE PATIENT MEDIMPACT RX PRESCRIPT ION RX PLAN [facility] Feb 12, [address] [facility] [id number] [phone] LOBO SCHULTE PATIENT MEDIMPACT RX PRESCRIPT ION RX PLAN [facility] Feb 12, 2024 [facility] [phone] LOBO SCHULTE PATIENT PRIME THERAPEUTI CS RX PRESCRIPT ION RX PLAN Feb 11, 2019 [facility] [id number] [phone] LOBO SCHULTE PATIENT PRIME THERAPEUTI CS RX PRESCRIPT ION HEALT H CARE SERVI CE Mar 14, 2009 9914 [id number] [phone] LOBO SCHULTE PATIENT Selected Encounter This section includes the information on record at [place] for the Encounter. Date/Time Encounter Type Encounter Description Reason Provider Source Jul 21, 2024 03:00 PM PSYTX W PT 60 MINUTES MENTAL HEALTH CLINIC - IND ICD-10-CM F43.10 Post-traumatic stress disorder, unspecified TITA EVANS Cj Encounter Template Text not used by [place] Assessments - Encounter Diagnoses This section includes the primary and secondary diagnoses documented for the Encounter. Date/Time Primary/Secondary Diagnosis Diagnosis Name Provider Source Jul 22, 2024 08:51 AM PRIMARY Post-traumatic stress disorder, unspecified MORGAN EVANS [facility] Jul 22, 2024 08:51 AM SECONDARY Generalized anxiety disorder MORGAN EVANS [facility] Jul 22, 2024 08:51 AM SECONDARY Other specified depressive episodes MORGAN EVANS [facility] Plan of Treatment: Future Appointments (+ 6 months) and Future Tests (+/- 45 days) The Plan of Treatment section includes future care activities for the patient from all [place] [facility] This section includes future appointments and future orders which are active, pending or scheduled. Future Appointments This section includes appointments that were scheduled to occur 6 months from the date of the Encounter, up to a maximum of 20 appointments. The data comes from all [place] treatment facilities. Appointment Date/Time Appointment Type Appointme nt Facility Name Jul 28, 2024 08:00 AM AMBULATORY - MEDICINE [facility] Aug 18, 2024 08:00 AM AMBULATORY - MEDICINE [facility] Aug 24, 2024 09:00 AM AMBULATORY - MEDICINE [place] [facility] Aug 26, 2024 09:20 AM AMBULATORY - MEDICINE [facility] Aug 31, 2024 09:00 AM AMBULATORY - MEDICINE [place] [facility] Sep 10, 2024 08:20 AM AMBULATORY - MEDICINE [facility] Sep 24, 2024 08:20 AM AMBULATORY - MEDICINE [facility] Sep 30, 2024 07:30 AM AMBULATORY - MEDICINE [place] [facility] Oct 08, 2024 08:20 AM AMBULATORY - MEDICINE [facility] Oct 28, 2024 10:40 AM AMBULATORY - MEDICINE [facility] Nov 05, 2024 08:20 AM AMBULATORY - MEDICINE [facility] Nov 12, 2024 08:20 AM AMBULATORY - MEDICINE [facility] Nov 19, 2024 08:20 AM AMBULATORY - MEDICINE [facility] Nov 19, 2024 08:30 AM AMBULATORY - MEDICINE [facility] Encounter Notes: All associated encounter notes This section contains the clinical notes associated to the Encounter. Date/Time Encounter Note(s) Provider Source Jul 21, 2024 03:03 PM MENTAL HEALTH RISK ASSESSMENT SCREENING CONSULT: LOCAL TITLE: [facility] PB STANDARD TITLE: MENTAL HEALTH RISK ASSESSMENT SCREENING CONSULT DATE OF NOTE: JUL 21, 2024@15:03 ENTRY DATE: JUL 21, 2024@15:03:50 AUTHOR: MORGAN EVANS ALA COSIGNER: URGENCY: STATUS: COMPLETED [place] Video Connect (VVC)/Video to home template v1.5 Visit conducted by synchronous telehealth. [place] Location/emergency number confirmed. Environment surveyed and all participants identified. Virtual conference room locked. VVC/Video to home appointment information: The following items were reviewed: - The nature of telehealth, its benefits, and risks. - Confidentiality and its limits. - The importance of having a confidential location for the service. - The emergency plan. - The appointment should be treated like an in person appointment (no smoking or driving during session, showing up fully dressed, etc.) *The Virtual Medical Room was locked for this encounter. *A survey of the environment was conducted and it is appropriate to conduct a VVC appointment. *Confirmed Walton's Non-VA location for this appointment: [facility] [address] [place], [place] [address] Address and phone number verified with . Address: Phone: does not have an emergency contact. * was notified of right to decline Telehealth services and eligibility for other options. Walton consented to be seen via VVC. EMERGENCY PLAN In the event of an emergency, the [place] or family will call emergency services, if capable. The Teleprovider will remain in the virtual medical room until emergency response arrives and handoff to emergency services is complete. If Walton is unable to make emergency call, the Teleprovider is to call the national E911 service at [phone] and ask to be connected to emergency services for the 's location. [facility] Crisis Line: Dial 988 then press 1, or text [phone] Office of Connected Care Helpdesk ([facility]): [phone] or [phone] Laterality (patient's right and/or left side) confirmed prior to intervention during video visit. Verified Provider's location and contact information for this appointment: Other Location Telehealth from providers home PATIENT: LOBO SCHULTE GENDER: MALE AGE: 54 DATE OF : May Service Connected: Yes (90%) SNAP (Strengths, Needs, Abilities,Preferences) STRENGTHS Supportive family, Being able to work NEEDS Learn about my illness, Learn about medication, Learn about alternative therapies, Learn positive coping skills ABILITIES Skills in reading, writing, Asks for help, Capacity to learn, Learns from errors, Saves money, Lives Independently PREFERENCES Appointment times: Specific Programs: Specific therapeutic Modalities: individual A therapist of same or opposite sex: Either; no preference Other: MEDICATION RECONCILIATION Have there been any changes to your medication? No If YES, how was the prescribing provider notified? NA PAIN Patient reports No pain Pain description: Intervention for Pain: VISIT DATE: Jul Relevant Changes in Mental Status: Initial session MENTAL STATUS EVALUATION APPEARANCE Neat SPEECH Normal BEHAVIOR Appropriate MOOD Congruent with topics discussed AFFECT Appropriate THOUGHT CONTENT/DELUSIONS Normal (Logical) HALLUCINATIONS Not evident SUICIDAL (POSITIVE RESPONSE TO ONE OF THESE REQUIRES SUICIDE RISK ASSESSMENT) Denied HOMICIDAL: Patient has exhibited these warning signs: Other: Denied COGNITION Oriented to Person, Oriented to Place, Oriented to Time, Oriented to Purpose, Alert Relevant historical changes since last contact: None Intervention/Treatment Provided(required): Working on building trust and rapport PERTINENT THEMES DISCUSSED: Other: Met with for initial session with his provider. is a 54 year old comma comma male period reports with a history of PTSD though is service connected primarily for generalized anxiety disorder. [place] reports recurrent nightmares, intrusive thoughts, hypervigilance, exaggerated startle response, negative cognitions, and avoidance. reports that this is secondary to combat in [facility] and that it has been present since that time period was given an overview of multiple treatment options including cognitive processing therapy, prolonged exposure, EMDR, and acceptance and commitment therapy. [place] verbalized understanding and agrees to research each of these with the websites provided. No clinically significant SI/HI: PROGRESS OF SESSION OR THERAPY TO DATE (required): No progress RECOMMENDATIONS/PLAN (required): [place] to cinsider options and engaged in weekly therapy CHANGES IN TREATMENT PLAN: None CHANGES IN DIAGNOSIS: None DIAGNOSIS TREATED THIS VISIT: Generalized anxiety D/O PTSD- Chronic Depressive D/O, unspecified TIME SPENT WITH PATIENT: 53-60 minutes, Ind. Psychotherapy, [id number] _ /es/ ARCELIA LONG, MANAGER OF BUSINESS POLI KYLE [facility] Signed: 07/22/2024 08:51 MORGAN EVANS [facility]
--- OUTSIDE RECORDS SUMMARY | 2024-07-28 03:00 | XMS_ITS | Encounter Summary ---
Author Name [facility] [facility] [place] [facility] [place] [facility] [place] Address [address] [place] [address] Care Team Providers Care System Safety Engineer Name Role Phone ESAU GALDAMEZ Primary Care [...] PLAN W/HEALTH SAVINGS ACCOUNT R.P. LUMBE R [facility] Feb 12, 2024 [facility] [id number] [phone] LOBO SCHULTE PATIENT [facility] M[facility]AL HEALTH R.P. [facility] Feb 12, 2024 [facility] [phone] LOBO SCHULTE PATIENT MEDIMPACT RX PRESCRIPT ION RX PLAN [facility] Feb 12, 2024 [facility] [id number] [phone] LOBO SCHULTE PATIENT MEDIMPACT RX PRESCRIPT ION RX PLAN [facility] Feb 12, 2024 [facility] [id number] LOBO SCHULTE PATIENT PRIME THERAPEUTI CS RX PRESCRIPT ION RX PLAN Feb 11, 2019 [facility] [id number] [phone] LOBO SCHULTE PATIENT PRIME THERAPEUTI CS RX PRESCRIPT ION [facility] Mar 14, 2009 [id number] [phone] LOBO SCHULTE PATIENT Selected Encounter This section includes the information on record at [place] for the Encounter. Date/Time Encounter Type Encounter Description Reason Provider Source Jul 28, 2024 08:00 AM CHIROPRACT MAN 3-4 [facility] [employer] ICD-10-CM M99.01 Segmental and somatic dysfunction of cervical region NEHEMIAH GONZALEZLAS Cj ANDERSON Encounter Template Text not used by [place] Assessments - Encounter Diagnoses This section includes the primary and secondary diagnoses documented for the Encounter. Date/Time Primary/Secondary Diagnosis Diagnosis Name Provider Source Aug 17, 2024 01:35 PM PRIMARY Segmental and somatic dysfunction of cervical region DOE GONZALEZ [facility] Aug 17, 2024 01:35 PM SECONDARY Cervicalgia DOE GONZALEZ [facility] Aug 17, 2024 01:35 PM SECONDARY Oth intvrt disc degen, lumbosacr w discog bck & lw extrm pn LISADOE Cj [facility] Aug 17, 2024 01:35 PM SECONDARY Pain in thoracic spine DOE GONZALEZ [facility] Aug 17, 2024 01:35 PM SECONDARY Segmental and somatic dysfunction of lumbar region LISADOE E [facility] Aug 17, 2024 01:35 PM SECONDARY Segmental and somatic dysfunction of pelvic region DOE GONZALEZ [facility] Aug 17, 2024 01:35 PM SECONDARY Segmental and somatic dysfunction of thoracic region DOE GONZALEZ [facility] Plan of Treatment: Future Appointments (+ 6 months) and Future Tests (+/- 45 days) The Plan of Treatment section includes future care activities for the patient from all [place] treatmentfacilities. This section includes future appointments and future orders which are active, pending or scheduled. Future Appointments This section includes appointments that were scheduled to occur 6 months from the date of the Encounter, up to a maximum of 20 appointments. The data comes from all [place] treatment facilities. Appointment Date/Time Appointment Type Appointme nt Facility Name Aug 18, 2024 08:00 AM [facility] Aug 24, 2024 09:00 AM [facility] [place] [facility] Aug 26, 2024 09:20 AM [facility] Aug 31, 2024 09:00 AM [facility] [place] [facility] Sep 10, 2024 08:20 AM [facility] Sep 24, 2024 08:20 AM [facility] Sep 30, 2024 07:30 AM [facility] [place] [facility] Oct 08, 2024 08:20 AM [facility] Oct 28, 2024 10:40 AM [facility] Nov 05, 2024 08:20 AM [facility] Nov 12, 2024 08:20 AM [facility] Nov 19, 2024 08:20 AM [facility] - MEDICINE [facility] Nov 19, 2024 08:30 AM AMBULATORY - MEDICINE [facility] Vital Signs: All taken on the encounter date This section contains inpatient and outpatient Vital Signs collected on the date of the Encounter. Date/Time Temperature Pulse Blood Pressure Respiratory Rate SP02 Pain Height Weight Body Mass Index Source Jul 28, 2024 08:00 AM 98.2 F 84 /min 144/92 mm[Hg] [facility] Social History: Smoking Status (Most current) and Tobacco Use (All prior to encounter date) This section includes the most current, and the historical, smoking and tobacco- related health factors from the [place] facility where the Encounter took place. Current Smoking Status This section includes the most current smoking, or tobacco-related health factor, from the [place] facility where the Encounter took place. Date/Time Current Smoking Status Comment Facil ity Oct 21, 2023 08:30 AM VA-TOBACCO FORMER USER [facility] Tobacco Use History This section includes a history of the smoking, or tobacco-related health factors, that were collected on or before the date of the Encounter. The data comes from the [place] facility where the Encounter took place. Date/Time Smoking Status/Tobacco Use Comment F acility Oct 21, 2023 08:30 AM VA-TOBACCO QUIT 15 YRS OR MORE [facility] May 30, 2022 01:00 PM VA-TOBACCO FORMER USER [facility] May 30, 2022 01:00 PM VA-TOBACCO QUIT 15 YRS OR MORE [facility] Encounter Notes: All associated encounter notes This section contains the clinical notes associated to the Encounter. Date/Time Encounter Note(s) Provider Source Jul 28, 2024 08:14 AM CHIROPRACTIC NOTE: LOCAL TITLE: CHIROPRACTIC FOLLOW UP NOTE PB STANDARD TITLE: CHIROPRACTIC NOTE DATE OF NOTE: JUL 28, 2024@08:14 ENTRY DATE: JUL 28, 2024@08:14:39 AUTHOR: DOE GONZALEZ COSIGNER: URGENCY: STATUS: COMPLETED CHIROPRACTIC FOLLOW-UP VISIT Patient's language preference for health information: Yi Other Communication Methods Needed: SUBJECTIVE: The Groton is a 54 year old MALE being seen in the Chiropractic clinic for follow-up visit. The describes his neck and back as a mix of achy, stiff, and sore. He states due to the back pain he is struggling to get good quality sleep. The rates his pain level as a [...] restricted in all planes of motion. The Gro[place] experience pain with the restricted AROM. LUMBAR/THORACIC SPINE: MOVEMENT/POSTURE: The Gro[place] ambulates without issue. SEGMENTAL DYSFUNCTION: Joint dysfunction [...] # 06/15/2022 MRI SPINE CERVICAL W/O CONT [id number] Verified [id number] 1. Right paracentral herniated disc [...] lumbar spine (prone) and pelvis (prone) using Iasac technique. The procedure was well tolerated by the . GOALS: The goals of treatment include: 1) The reduction of symptomatology. 2) Instructing the in home exercises to improve cervical flexibility and strength, core strength, and lower extremity and core flexibility. 3) Helping the to understand the benefits of long-term continuation of the home exercise program and to commit to a prison exercise plan. /misha/ [facility] Signed: 07/28/2024 08:25 DOE GONZALEZ
--- OUTSIDE RECORDS SUMMARY | 2024-08-18 03:00 | XMS_ITS | Encounter Summary ---
Author Name [facility] [place] Organization [facility] [place] [facility] [place] Address [address] [place] [address] Care Team Providers Care Human Services Professional Name Role Phone ESAU GALDAMEZ Primary Care [...] PLAN W/HEALTH SAVINGS ACCOUNT R.P. LUMBE R [facility] Feb [facility], [id number] [phone] LOBO SCHULTE PATIENT [facility] MENTAL HEALTH R.P. LUMBE R [facility] Feb 12, 2024 [facility] [id number] LOBO SCHULTE PATIENT MEDIMPACT RX PRESCRIPT ION RX PLAN [facility] Feb 12, 2024 [facility] [id number] [phone] LOBO SCHULTE PATIENT MEDIMPACT RX PRESCRIPT ION RX PLAN [facility] Feb 12, 2024 [facility] [id number] [phone] OLBO SCHULTE PATIENT PRIME THERAPEUTI CS RX PRESCRIPT ION RX PLAN Feb 11, 2019 [facility] [id number] [phone] LOBO SCHULTE PATIENT PRIME THERAPEUTI CS RX PRESCRIPT ION [facility] Mar 14, 2009 9914 [id number] [phone] LOBO SCHULTE PATIENT Selected Encounter This section includes the information on record at [place] for the Encounter. Date/Time Encounter Type Encounter Description Reason Provider Source Aug 18, 2024 08:00 AM CHIROPRACT MANJ 3-4 [employer] ICD-10-CM M99.01 Segmental and somatic dysfunction of cervical region DOE GONZALEZ [place] Encounter Template Text not used by [place] Assessments - Encounter Diagnoses This section includes the primary and secondary diagnoses documented for the Encounter. Date/Time Primary/Secondary Diagnosis Diagnosis Name Provider Source Aug 18, 2024 08:21 AM PRIMARY Segmental and somatic dysfunction of cervical region LISADOE E [facility] Aug 18, 2024 08:21 AM SECONDARY Cervicalgia DOE GONZALEZ [facility] Aug 18, 2024 08:21 AM SECONDARY Oth intvrt disc degen, lumbosacr rgn w discog bck pain only LISADOE [place] [facility] Aug 18, 2024 08:21 AM SECONDARY Pain in thoracic spine L[facility]ADOE E [facility] Aug 18, 2024 08:21 AM SECONDARY Segmental and somatic dysfunction of lumbar region LISADOE E [facility] Aug 18, 2024 08:21 AM SECONDARY Segmental and somatic dysfunction of pelvic region DOE G[facility]ALEZ [place] [facility] Aug 18, 2024 08:21 AM SECONDARY Segmental and somatic dysfunction of thoracic region L[place]ADOE E [facility] Plan of Treatment: Future Appointments (+ 6 months) and Future Tests (+/- 45 days) The Plan of Treatment section includes future care activities for the patient from all [place] treatmentfacilities. This section includes future appointments and future orders which are active, pending or scheduled. Future Appointments This section includes appointments that were scheduled to occur 6 months from the date of the Encounter, up to a maximum of 20 appointments. The data comes from all [place] treatment facilities. Appointment Date/Time Appointment Type Appointme nt Facility Name Aug 24, 2024 09:00 AM [facility] Aug 26, 2024 09:20 AM [facility] [place] [facility] Aug 31, 2024 09:00 AM [facility] [facility] Sep 10, 2024 08:20 AM [facility] [place] [facility] [facility] Sep 24, 2024 08:20 AM AMBULATORY - MEDICINE [facility] Sep 30, 2024 07:30 AM [facility] [place] [facility] Oct 08, 2024 08:20 AM AMBULATORY - MEDICINE [facility] Oct 28, 2024 10:40 AM AMBULATORY - MEDICINE [facility] Nov 05, 2024 08:20 AM AMBULATORY - MEDICINE [facility] Nov 12, 2024 08:20 AM AMBULATORY - MEDICINE [facility] Nov 19, 2024 08:20 AM AMBULATORY - MEDICINE [facility] Nov 19, 2024 08:30 AM AMBULATORY - MEDICINE [facility] Vital Signs: All taken on the encounter date This section contains inpatient and outpatient Vital Signs collected on the date of the Encounter. Date/Time Temperature Pulse Blood Pressure Respiratory Rate SP02 Pain Height Weight Body Mass Index Source Aug 18, 2024 08:00 AM 98.3 F 101 /min 143/97 mm[Hg] [facility] Social History: Smoking Status (Most current) and Tobacco Use (All prior to encounter date) This section includes the most current, and the historical, smoking and tobacco- related health factors from the [place] facility where the Encounter took place. Current Smoking Status This section includes the most current smoking, or tobacco-related health factor, from the [place] facility where the Encounter took place. Date/Time Current Smoking Status Comment Facil ity Oct 21, 2023 08:30 AM VA-TOBACCO QUIT 15 YRS OR MORE [facility] Tobacco Use History This section includes a history of the smoking, or tobacco-related health factors, that were collected on or before the date of the Encounter. The data comes from the [place] facility where the Encounter took place. Date/Time Smoking Status/Tobacco Use Comment F acility Oct 21, 2023 08:30 AM VA-TOBACCO QUIT 15 YRS OR MORE [facility] May 30, 2022 01:00 PM VA-TOBACCO FORMER USER [facility] May 30, 2022 01:00 PM VA-TOBACCO QUIT 15 YRS OR MORE [facility] Encounter Notes: All associated encounter notes This section contains the clinical notes associated to the Encounter. Date/Time Encounter Note(s) Provider Source Aug 18, 2024 08:10 AM CHIROPRACTIC NOTE: LOCAL TITLE: CHIROPRACTIC FOLLOW UP NOTE PB STANDARD TITLE: CHIROPRACTIC NOTE DATE OF NOTE: AUG 18, 2024@08:10 ENTRY DATE: AUG 18, 2024@08:10:57 AUTHOR: DOE GONZALEZ COSIGNER: URGENCY: STATUS: COMPLETED CHIROPRACTIC FOLLOW-UP VISIT Patient's language preference for health information: Micronesian Other Communication Methods Needed: SUBJECTIVE: The is a 54 year old MALE being seen in the Chiropractic clinic for follow-up visit. The Fluker states he is hurting throughout his neck and back. 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 The rates his pain level as a 7-8/10. PAST MEDICAL HISTORY: see problem list SOCIO-ECONOMIC [...] restricted in all planes of motion. The Fluker experience pain with the restricted AROM. LUMBAR/THORACIC SPINE: MOVEMENT/POSTURE: The Fluker ambulates without issue. SEGMENTAL DYSFUNCTION: Joint dysfunction [...] # 06/15/2022 MRI SPINE CERVICAL W/O CONT [id number] Verified [id number] 1. Right paracentral herniated disc [...] the once every two weeks for six additional [...] exercise program and to commit to a residential exercise plan. /misha/ [facility] Signed: 08/18/2024 08:21 DOE GONZALEZ
--- OUTSIDE RECORDS SUMMARY | 2024-08-24 04:00 | XMS_ITS | Encounter Summary ---
Author Name [facility] [place] [facility] [place] Address [address] [place] [address] Care Team Providers Care Patternmaker Name Role Phone ESAU GALDAMEZ Primary Care [...] [facility] Feb 12, 2024 [facility] [id number] [phone] LOBO SCHULTE PATIENT [facility] MENTAL HEALTH R.P. LUMBE R [facility] Feb 12, 2024 [facility] [id number] LOBO SCHULTE PATIENT MEDIMPACT RX PRESCRIPT ION RX PLAN [facility] Feb 12, 2024 [facility] [phone] LOBO SCHULTE PATIENT MEDIMPACT RX PRESCRIPT ION RX PLAN [facility] Feb 12, 2024 [facility] [phone] LOBO SCHULTE PATIENT [facility] RX PRESCRIPT ION RX PLAN Feb 11, 2019 [facility] [id number] [phone] LOBO SCHULTE PATIENT [facility] RX PRESCRIPT ION [facility] Mar 14, 2009 [id number] [phone] LOBO SCHULTE PATIENT Selected Encounter This section includes the information on record at [place] for the Encounter. Date/Time Encounter Type Encounter Description Reason Provider Source Aug 24, 2024 09:00 AM PSYCH DIAGNOSTIC EVALUATION [facility] ICD-10-CM F43.10 Post-traumatic stress disorder, unspecified SUMMER EVANS Encounter Template Text not used by [place] Assessments - Encounter Diagnoses This section includes the primary and secondary diagnoses documented for the Encounter. Date/Time Primary/Secondary Diagnosis Diagnosis Name Provider Source Aug 25, 2024 08:52 AM PRIMARY Post-traumatic stress disorder, unspecified MORGAN EVANS [facility] Aug 25, 2024 08:52 AM SECONDARY Generalized anxiety disorder MORGAN EVANS [facility] Plan of Treatment: Future Appointments (+ 6 months) and Future Tests (+/- 45 days) The Plan of Treatment section includes future care activities for the patient from all [place] treatmentfacilities. This section includes future appointments and future orders which are active, pending or scheduled. Future Appointments This section includes appointments that were scheduled to occur 6 months from the date of the Encounter, up to a maximum of 20 appointments. The data comes from all [place] treatment facilities. Appointment Date/Time Appointment Type Appointme nt Facility Name Aug 26, 2024 09:20 AM AMBULATORY - MEDICINE [facility] Aug 31, 2024 09:00 AM AMBULATORY - MEDICINE [facility] [facility] Sep 10, 2024 08:20 AM AMBULATORY - MEDICINE [facility] Sep 24, 2024 08:20 AM AMBULATORY - MEDICINE [facility] Sep 30, 2024 07:30 AM AMBULATORY - MEDICINE [facility] [facility] Oct 08, 2024 08:20 AM AMBULATORY - MEDICINE [facility] Oct 28, 2024 10:40 AM AMBULATORY - MEDICINE [facility] Nov 05, 2024 08:20 AM [facility] Nov 12, 2024 08:20 AM [facility] Nov 19, 2024 08:20 AM AMBULATORY - MEDICINE [facility] Nov 19, 2024 08:30 AM [facility]ORY - [facility]ICINE [facility] Encounter Notes: All associated encounter notes This section contains the clinical notes associated to the Encounter. Date/Time Encounter Note(s) Provider Source Aug 24, 2024 09:01 AM MENTAL HEALTH INIT IAL EVALUATION NOTE: LOCAL TITLE: MH INITIAL ASSESSMENT PB STANDARD TITLE: MENTAL HEALTH INITIAL EVALUATION NOTE DATE OF NOTE: AUG 24, 2024@09:01 ENTRY DATE: AUG 24, 2024@09:01:44 AUTHOR: MORGAN EVANS ALA COSIGNER: URGENCY: STATUS: COMPLETED Prog Note DT Title Author Last Troy DT 08/24/2024 MH INITIAL ASSESSMENT PB MORGAN EVANS Age: 54 GENDER: MALE RACE: Race - NONE FOUND MARITAL STATUS: . SOURCE OF INFORMATION: Patient's language preference for health information: Korean Other Communication Methods Needed: Preferred Method of Education: Verbal I have informed the Prosser of the limits of confidentiality: If the is going to hurt himself confidentiality is changed to include additional caregivers and staff in order to treat his/her threat to self. If the threatens to hurt someone else confidentiality is changed to include hospital caregivers and staff; and possibly law enforcement and the intended victim. If the reports child abuse a hot line call will be performed to protect the child. Yes Science Analyst informed that underwriter is a mandated powder expert and is required to report information pertaining to childabuse, elder abuse, and abuse of disabled or incapacitated persons. Science Analyst also informed Prosser that underwriter must also take appropriate action if there is a concern that he is an imminent risk of harm to self or others. Prosser expressed understanding of this information and agreed to continue with the session. Science Analyst allowed to ask questions regarding this information. Prosser willingly agreed to the session? Yes CLINICAL HISTORY PRESENTING CHIEF COMPLAINT: Irritation more than anything I guess. Prosser presents with a service connection for anxiety at 70%. Prosser reports that he's had increased agitation and irritation and reports multiple symptoms related to trauma. endorses recurrent nightmares, intrusive thoughts, exaggerated startle response, hypervigilance, and avoidance. acknowledges that he finds himself on edge a lot and has significant difficulty dealing with difficult customers. HISTORY OF CURRENT ILLNESS/PAST PSYCHIATRIC HISTORY: None HISTORY AND PRESENT RISK OF SUICIDAL ACTS AND SELF-HARM: None HISTORY AND PRESENT RISK OF VIOLENCE/ASSAULTING OTHERS/LEGAL PROBLEMS: None SUBSTANCE USE HISTORY: None Treatment: None Patterns of Use: N/A Method(s) of Acquiring: None MENTAL ILLNESS AND SUBSTANCE ABUSE IN FAMILY MEMBERS: None ABUSE/TRAUMA HISTORY: Are you now experiencing or have you experienced any of the following: Physical Abuse: No Sexual Abuse: No Sexual trauma that occurred while you were in the : No Emotional Abuse: No Neglect: No Exploitation (someone taking advantage of you): No PSYCHOSOCIAL HISTORY: a) Childhood/Developmental History: was born in [facility] and raised in [place]. Prosser was raised by his biological parents. Prosser reports a close relationship with his mother though a complicated relationship with his father. reports no significant developmental difficulties no behavioral problems in childhood and reports his childhood as generally Supportive and unremarkable. b) Adult Relationship History: , once - 33 years. c) Current significant family and/or peer group relationships: reports frequent and supportive contact with family members including those in extended family. 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 e) Zoroastrianism/Spiritual or Cultural Issues that might influence treatment: [place] - not very active f) Relevant community resources accessed by patient: None g) Current Level of Functioning: Independent in all ADL's HISTORY: Branch: [employer] - [employer] - [address] [employer] MEDICAL INFORMATION NUTRITION SCREEN Poor or Increased appetite Greater than 2 weeks? No Weight gain or loss greater than 20 pounds in 6 months? No Do you have any food allergies or intolerances? No Have you experienced unintentional weight loss or gain of ten pounds or more in the last three months? No Have you had a decrease in food intake and/or appetite? No Have you recently had any problems or changes in your dental health? No Has there been a change in your eating habits or behaviors that is concerning to you? No Do you have times when you feel you have no control over your eating? No Do you misuse laxatives, diuretics, or cause yourself to vomit in an attempt to influence your weight? No CURRENT PERTINENT MEDICAL PROBLEMS AND MEDICATIONS: 1) Diabetes mellitus 2) Hyperlipidemia 3) Benign [...] pain 20) GERD - Gastro-Esophageal Reflux Disease ([facility] [id number]) 21) Polyp Colon ([facility] [id number]) 22) Tendonitis of right shoulder 23) Allergic Rhinitis ([facility] [id number]) 24) Exposure to potentially hazardous substance 25) Deviated nasal septum 26) Left inguinal hernia 27) Posttraumatic stress disorder SURGICAL HISTORY: (Please list all past surgeries): Hernia surgery - 2024 HEAD INJURY HISTORY (including TBI): None CURRENT SIGNIFICANT PAIN PROBLEMS: None Pain Scale: CURRENT MEDICATIONS: MRT1 - Med Reconciliation INCLUDED IN THIS LIST: Alphabetical list of active outpatient prescriptions dispensed from this [place] (local) and dispensed from another [place] or [facility] facility (remote) as well as inpatient orders (local pending and active), local clinic medications, locally documented non-VA medications, and local prescriptions that have or been discontinued in the past 90 days. Non-VA Meds Last Documented On: Nov 10, 2021 NOTE The display of VA prescriptions dispensed from another [place] or [facility] facility (remote) is limited to active outpatient prescription entries matched to National Drug File at the originating site and may not include some items such as investigational drugs, compounds, etc. NOT INCLUDED IN THIS LIST: Medications self-entered by the patient into personal health records (i.e. [employer]) are NOT included in this list. Non-VA medications documented outside this [place], remote inpatient orders (regardless of status) and [...] ANY UNEXPLAINED MUSCLE PAIN/WEAKNESS TO PROVIDER. Rx# [id number] Last Released: 07/23/24 Qty/Days Supply: Rx Expiration Date: 11/05/24 Refills Remainin Non-VA CHOLECALCIF 25MCG (D3-1,000UNIT) TAB TAKE ONE TABLET BY MOUTH ONCE A DAY Patient wants to buy from Non-VA pharmacy. Non-VA CINNAMON CAP/TAB TAKE BY MOUTH ONCE A DAY OUTPT EMPAGLIFLOZIN 25MG TAB (Status = Active) TAKE ONE TABLET BY MOUTH ONCE A DAY FOR BLOOD SUGAR CONTROL Rx# [id number] Last Released: 05/22/24 Qty/Days Supply: Rx Expiration Date: 09/18/24 Refills Remainin OUTPT GLIMEPIRIDE 4MG TAB (Status = Active) TAKE TWO TABLETS BY MOUTH EVERY MORNING FOR DIABETES TAKE WITH BREAKFAST OR FIRST FOOD. Rx# [id number] Last Released: 06/26/24 Qty/Days Supply: 180/ Rx Expiration Date: 10/21/24 Refills Remainin Indication: FOR DIABETES OUTPT LISINOPRIL 40MG TAB (Status = Discontinued) TAKE ONE-HALF TABLET BY MOUTH ONCE A DAY TO LOWER BLOOD PRESSURE/ PROTEINURIA Rx# [id number] Last Released: 05/05/24 Qty/Days Supply: 45 Rx Expiration Date: 05/05/25 Refills Remainin OUTPT LISINOPRIL 40MG TAB (Status = Active) TAKE ONE TABLET BY MOUTH ONCE A DAY TO LOWER BLOOD PRESSURE/ PROTEINURIA Rx# [id number] Last Released: 07/21/24 Qty/Days Supply: 90 Rx Expiration Date: 05/27/25 Refills Remainin Indication: FOR HIGH BLOOD PRESSURE OUTPT ROPINIROLE HCL 2MG TAB (Status = Discontinued) TAKE ONE TABLET BY MOUTH AT BEDTIME FOR RESTLESS LEG SYNDROME Rx# [id number] Last Released: 04/28/24 Qty/Days Supply: 90/90 Rx Expiration Date: 11/05/24 Refills Remainin Indication: FOR RESTLESS LEG SYNDROME OUTPT ROPINIROLE HCL 2MG TAB (Status = Active) TAKE ONE TABLET BY MOUTH THREE TIMES A DAY NEEDED FOR RESTLESS LEG SYNDROME Rx# [id number] Last Released: 07/14/24 Qty/Days Supply: 180/60 Rx Expiration Date: 05/27/25 Refills Remainin Indication: FOR RESTLESS LEG SYNDROME OUTPT SEMAGLUTIDE 0.25MG/0.375ML INJ PEN 3ML (Status = Discontinued) INJECT 0.5MG UNDER THE SKIN EVERY WEEK FOR DIABETES Rx# [id number] Last Released: 05/25/24 Qty/Days Supply: 03/10 Rx Expiration Date: 10/21/24 Refills Remainin Indication: FOR DIABETES OUTPT SEMAGLUTIDE 1MG/0.75ML INJ PEN 3ML (Status = Active) INJECT 1MG UNDER THE SKIN EVERY WEEK FOR DIABETES Rx# [id number] Last Released: 08/12/24 Qty/Days Supply: Rx Expiration Date: 06/04/25 Refills Remainin Indication: FOR DIABETES Non-VA TURMERIC CAP/TAB TAKE BY MOUTH SUPPLIES PHARMACY TERMS AND POSSIBLE PATIENT ACTIONS INPT = [place] inpatient order IV = [place] intravenous medication OUTPT = [place] outpatient prescription PHARMACY POSSIBLE PATIENT TERMS EXPLANATION ACTIONS -------- ----- ACTIVE A prescription that can be If you have refills, filled at the local VA pharmacy. you may request a refill of [...] more of this picked up at the [place] pharmacy medication. window. A prescription which is [...] the VA. Or, it may be an rggl-jwm-howtuew (OTC), herbal, dietary supplements or sample medication. [...] An active prescription that is Contact your VA not scheduled to be filled yet. pharmacy if you need You should receive it before this medication now. you run out. MEDICATION RECONCILIATION: Patient reports that they are currently taking the medications listed above as prescribed? No, Explain Patient reports that they are NOT taking any over the counter medications not listed in CPRS. No, Explain Patient reports that they are NOT taking any herbal remedies not listed in CPRS No, Explain If any of the above marked NO: Staff member notified Prescribing Provider of discrepancies found in Medication Reconciliation: N/A STRENGTHS/ASSETS: MENTAL STATUS EXAM: APPEARANCE Neat SPEECH Pressured BEHAVIOR Appropriate MOOD Substance-induced AFFECT Appropriate THOUGHT CONTENT/DELUSIONS Normal (Logical) HALLUCINATIONS Not evident SUICIDAL Denied HOMICIDAL Other: COGNITION Oriented to Person, Oriented to Place, Oriented to Time, Oriented to Purpose, Alert INITIAL DSM-V DIAGNOSIS: PTSD, Chronic Generalized Anxiety D/O Was Evidenced Based Therapy offered? Yes Time Spent with Prosser: 60 min /es/ ARCELIA LONG, MILKER MACHINE POLI KYLE [facility] Signed: 08/25/2024 08:50 MORGAN EVANS [facility]
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
--- OUTSIDE RECORDS SUMMARY | 2024-08-31 04:00 | XMS_ITS | Encounter Summary ---
Author Name [facility] [place] Address [address] [place] [address] Care Team Providers Care Systems Accountant Name Role Phone ESAU GALDAMEZ Primary Care [...] PLAN W/HEALTH SAVINGS ACCOUNT R.P. LUMBE R [id number] [phone] LOBO SCHULTE PATIENT [facility] MENTAL HEALTH R.P. LUMBE R [facility], [facility] [id number] LOBO SCHULTE PATIENT MEDIMPACT RX PRESCRIPT ION RX PLAN [facility] Feb 12, 2024 [facility] [id number] [phone] LOBO SCHULTE PATIENT MEDIMPACT RX PRESCRIPT ION RX PLAN [facility] Feb 12, 2024 [facility] [id number] [phone] LOBO SCHULTE PATIENT PRIME THERAPEUTI CS RX PRESCRIPT ION RX PLAN Feb 11, 2019 [facility] [id number] [phone] LOBO SCHULTE PATIENT PRIME THERAPEUTI CS RX PRESCRIPT ION HEALT H CARE SERVI CE Mar 14, 2009 [id number] [phone] LOBO SCHULTE PATIENT Selected Encounter This section includes the information on record at [place] for the Encounter. Date/Time Encounter Type Encounter Description Reason Provider Source Aug 31, 2024 09:00 AM PSYTX W PT 60 MINUTES [facility] - IND ICD-10-CM F43.10 Post-traumatic stress disorder, unspecified TITA EVANS Cj Encounter Template Text not used by [place] Assessments - Encounter Diagnoses This section includes the primary and secondary diagnoses documented for the Encounter. Date/Time Primary/Secondary Diagnosis Diagnosis Name Provider Source Sep 02, 2024 08:31 AM PRIMARY Post-traumatic stress disorder, unspecified MORGAN EVANS [facility] Sep 02, 2024 08:31 AM SECONDARY Generalized anxiety disorder MORGAN EVANS [facility] Plan of Treatment: Future Appointments (+ 6 months) and Future Tests (+/- 45 days) The Plan of Treatment section includes future care activities for the patient from all [place] treatmentfacilities. This section includes future appointments and future orders which are active, pending or scheduled. Future Appointments This section includes appointments that were scheduled to occur 6 months from the date of the Encounter, up to a maximum of 20 appointments. The data comes from all [place] treatment facilities. Appointment Date/Time Appointment Type Appointme nt Facility Name Sep 10, 2024 08:20 AM AMBULATORY - MEDICINE [facility] Sep 24, 2024 08:20 AM AMBULATORY - MEDICINE [facility] Sep 30, 2024 07:30 AM AMBULATORY - MEDICINE [facility] Oct 08, 2024 08:20 AM AMBULATORY - MEDICINE [facility] Oct 28, 2024 10:40 AM AMBULATORY - MEDICINE [facility] Nov 05, 2024 08:20 AM AMBULATORY - MEDICINE [facility] Nov 12, 2024 08:20 AM AMBULATORY - MEDICINE [facility] Nov 19, 2024 08:20 AM AMBULATORY - MEDICINE [facility] Nov 19, 2024 08:30 AM AMBULATORY - MEDICINE [facility] Encounter Notes: All associated encounter notes This section contains the clinical notes associated to the Encounter. Date/Time Encounter Note(s) Provider Source Aug 31, 2024 09:34 AM TELEHEALTH NOTE: LOCAL TITLE: [facility] VIDEO CONNECT/VIDEO TO HOME STANDARD TITLE: TELEHEALTH NOTE DATE OF NOTE: AUG 31, 2024@09:34 ENTRY DATE: AUG 31, 2024@09:34:21 AUTHOR: MORGAN EVANS ALA COSIGNER: URGENCY: STATUS: COMPLETED VA Video Connect (VVC)/Video to home template v1.5 Visit conducted by synchronous telehealth. Location/emergency number confirmed. Environment surveyed and all [...] appropriate to conduct a VVC appointment. *Confirmed Banks's Non-VA location for this appointment: Banks's Home [address] [place], [place] [address] Address and phone number verified with Banks. Address: Phone: does not have an emergency contact. * was notified of right to decline Telehealth services and eligibility for other options. Banks consented to be seen via VVC. EMERGENCY PLAN In the event of an emergency, the Banks or family will call emergency services, if capable. The Teleprovider will remain in the virtual medical room until emergency response arrives and handoff to emergency services is complete. If Banks is unable to make emergency call, the Teleprovider is to call the national E911 service at [phone] and ask to be connected to emergency services for the Banks's location. 's Crisis Line: Dial 988 then press 1, or text [phone] Office of Connected Care Helpdesk ([facility]): [phone] or [phone] Laterality (patient's right and/or left side) confirmed prior to intervention during video visit. Verified Provider's location and contact information for this appointment: Other Location Telehealth from providers home Acceptance and Commitment Therapy (ACT) for Depression - Beginning Phase Time in session (in minutes): 60 SESSION NUMBER: 1 SESSION FORMAT Video Telehealth Session SESSION LOCATION Other location Specify: Telehealth from providers home DIAGNOSIS: Primary (focus of treatment): PTSD Secondary (if applicable): Anxiety ASSESSMENT RISK INFORMATION Banks denies any HI / SI. MENTAL STATUS/BEHAVIORAL OBSERVATIONS Banks was alert and fully oriented. Banks was appropriately groomed and dressed with good hygiene. Banks made good eye contact. 's speech was clear, relevant and goal oriented. 's affect was congruent with topics discussed. was calm and cooperative throughout the session. Banks denied perceptual disturbances. Session Content: In this beginning phase session of ACT for Depression, the following therapeutic activities were performed. Provided the Banks with an overview and rationale of ACT for depression, including what to expect over the course of the treatment, and the collaborative nature of the therapeutic relationship. The goals of ACT were explained in terms of learning and developing a new and different relationship to one's internal experiences (e.g., thoughts, emotions, sensations, memories), with the goal of creating psychological and behavioral flexibility in the service of personal values. The following interventions/metaphors were used to assist the in understanding the treatment philosophy and process of ACT for depression: Roller Coaster Metaphor [place] Metaphor ACT - Accept, Choose, Take Action The Banks had the following response to this rationale: Banks verbalized a basic understanding and is willing to continue treatment. The therapist elicited the 's Life Story or the history of the 's difficulties. This history included: Long standing histroy of envoronmental stressors. Much of this is related to reactivity to stressors secondary to trauma. COLLABORATION The degree of collaboration between the Banks and the therapist in the current session was high. Description of collaboration in this session: PLAN Next session planned for agreed upon date/time of: 09-09-24 /misha/ ARCELIA LONG, [facility] Signed: 09/02/2024 08:31 MORGAN EVANS [facility]
--- OUTSIDE RECORDS SUMMARY | 2024-09-10 03:20 | XMS_ITS | Encounter Summary ---
Author Name [facility] [place] [facility] [place] [facility] [place] Address [address] [place] [address] Care Team Providers Care Last Chalker Name Role Phone ESAU GALDAMEZ Primary Care [...] R [facility] Feb 12, [facility] [id number] [phone] LOBO SCHULTE PATIENT [facility] MENTAL HEALTH R.P. LUMBE R [facility] Feb 12, 2024 [facility] [id number] LOBO SCHULTE PATIENT MEDIMPACT RX PRESCRIPT ION RX PLAN [facility] Feb 12, 2024 [facility] [phone] LOBO SCHULTE PATIENT MEDIMPACT RX PRESCRIPT ION RX PLAN [facility] Feb 12, 2024 [facility] [id number] [phone] LOBO SCHULTE PATIENT PRIME THERAPEUTI CS RX PRESCRIPT ION RX PLAN Feb 11, 2019 [facility] [id number] [phone] LOBO SCHULTE PATIENT PRIME THERAPEUTI CS RX PRESCRIPT ION HEALT H CARE SERVI CE Mar 14, 2009 [id number] [phone] LOBO SCHULTE PATIENT Selected Encounter This section includes the information on record at [place] for the Encounter. 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 Date/Time Primary/Secondary Diagnosis Diagnosis Name Provider Source Sep 10, 2024 08:33 AM PRIMARY Segmental and somatic dysfunction of cervical region DOE GONZALEZ [facility] Sep 10, 2024 08:33 AM SECONDARY Cervicalgia DOE GONZALEZ [facility] Sep 10, 2024 08:33 AM SECONDARY Oth intvrt disc degen, lumbosacr rgn w discog bck pain only DOE GONZALEZ [facility] Sep 10, 2024 08:33 AM SECONDARY Pain in thoracic spine DOE GONZALEZ [facility] Sep 10, 2024 08:33 AM SECONDARY Segmental and somatic dysfunction of lumbar region DOE GONZALEZ [facility] Sep 10, 2024 08:33 AM SECONDARY Segmental and somatic dysfunction of pelvic region DOE GONZALEZ [facility] Sep 10, 2024 08:33 AM SECONDARY Segmental and somatic dysfunction of thoracic region DOE GONZALEZ [facility] Plan of Treatment: Future Appointments (+ 6 months) and Future Tests (+/- 45 days) The Plan of Treatment section includes future care activities for the patient from all [place] treatmentfacilities. This section includes future appointments and future orders which are active, pending or scheduled. Future Appointments This section includes appointments that were scheduled to occur 6 months from the date of the Encounter, up to a maximum of 20 appointments. The data comes from all [place] treatment facilities. Appointment Date/Time Appointment Type Appointme nt Facility Name Sep 24, 2024 08:20 AM AMBULATORY - MEDICINE [facility] Sep 30, 2024 07:30 AM AMBULATORY - MEDICINE [facility] Oct 08, 2024 08:20 AM AMBULATORY - MEDICINE [facility] Oct 28, 2024 10:40 AM AMBULATORY - MEDICINE [facility] Nov 05, 2024 08:20 AM AMBULATORY - MEDICINE [facility] Nov 12, 2024 08:20 AM AMBULATORY - MEDICINE [facility] Nov 19, 2024 08:20 AM AMBULATORY - MEDICINE [facility] Nov 19, 2024 08:30 AM AMBULATORY - MEDICINE [facility] Active, Pending, and Scheduled Orders This section includes a listing of several types of active, pending, and scheduled orders, including clinic medications orders, diagnostic test orders, procedure orders and consult orders; where the start date of the order is 45 days before the date of the Encounter or 45 days after the date of theEncounter. The data comes from all [facility] facilities. Test Date/Time Test Type Test Details Facility Name Oct 20, 2024 12:00 AM Laboratory - Chemistry Order COMPREHENSIVE METABOLIC PANEL GREEN LI/HEP BLD/PLAS PLASMA [facility] Oct 20, 2024 12:00 AM Laboratory - Chemistry Order CBC BLOOD [facility] Oct 20, 2024 12:00 AM Laboratory - Chemistry Order [id number] BLOOD [facility] Oct 20, 2024 12:00 AM Laboratory - Chemistry Order CHOLESTEROL PANEL (PB) GREEN LI/HEP BLD/PLAS PLASMA [facility] Oct 20, 2024 12:00 AM Laboratory - Chemistry Order TSH (MA-PB) GOLD/RED SST SERUM [facility] Oct 20, 2024 12:00 AM Laboratory - Chemistry Order URINE ALBUMIN PROFILE-ih (PB) URINE,RANDOM [facility] Vital Signs: All taken on the encounter date This section contains inpatient and outpatient Vital Signs collected on the date of the Encounter. Date/Time Temperature Pulse Blood Pressure Respiratory Rate SP02 Pain Height Weight Body Mass Index Source Sep 10, 2024 08:20 AM 98 F 112 /min 147/99 mm[Hg] [facility] Social History: Smoking Status (Most current) and Tobacco Use (All prior to encounter date) This section includes the most current, and the historical, smoking and tobacco- related health factors from the [place] facility where the Encounter took place. Current Smoking Status This section includes the most current smoking, or tobacco-related health factor, from the [place] facility where the Encounter took place. Date/Time Current Smoking Status Comment Archie itfredy Oct 21, 2023 08:30 AM VA-TOBACCO QUIT 15 YRS OR MORE [facility] Tobacco Use History This section includes a history of the smoking, or tobacco-related health factors, that were collected on or before the date of the Encounter. The data comes from the [place] facility where the Encounter took place. Date/Time Smoking Status/Tobacco Use Comment F acility Oct 21, 2023 08:30 AM VA-TOBACCO QUIT 15 YRS OR MORE [facility] May 30, 2022 01:00 PM VA-TOBACCO FORMER USER [facility] May 30, 2022 01:00 PM VA-TOBACCO QUIT 15 YRS OR MORE [facility] Encounter Notes: All associated encounter notes This section contains the clinical notes associated to the Encounter. Date/Time Encounter Note(s) Provider Source Sep 10, 2024 08:23 AM CHIROPRACTIC NOTE: LOCAL TITLE: CHIROPRACTIC FOLLOW UP NOTE PB STANDARD TITLE: CHIROPRACTIC NOTE DATE OF NOTE: SEP 10, 2024@08:23 ENTRY DATE: SEP 10, 2024@08:23:48 AUTHOR: DOE GONZALEZ COSIGNER: URGENCY: STATUS: COMPLETED CHIROPRACTIC FOLLOW-UP VISIT Patient's language preference for health information: Gabonese Other Communication Methods Needed: SUBJECTIVE: The [place] is a 54 year old MALE being seen in the Chiropractic clinic for follow-up visit. The [place] states he has been sleeping in a recliner and staying at a hotel due to the air conditioning being out at his home. With the sleeping situation, the states his neck and back are very achy and stiff. The rates his pain level as a [...] restricted in all planes of motion. The [place] experience pain with the restricted AROM. LUMBAR/THORACIC [...] # 06/15/2022 MRI SPINE CERVICAL W/O CONT [id number] Verified 3636 1. Right paracentral herniated disc [...] exercise program and to commit to a fdc exercise plan. /misha/ [facility] Signed: 09/10/2024 08:32 DOE GONZALEZ
--- OUTSIDE RECORDS SUMMARY | 2024-09-24 03:20 | XMS_ITS | Encounter Summary ---
Author Name [facility] [place] Address [address] [place] [address] Care Team Providers Care Pastry Sous Chef Name Role Phone ESAU GALDAMEZ Primary Care [...] PLAN W/HEALTH SAVINGS ACCOUNT R.P. LUMBE R [facility] Feb [facility], [facility] [id number] [phone] LOBO SCHULTE PATIENT [facility] MENTAL HEALTH R.P. LUMBE R [facility] Feb 12, 2024 [facility] [id number] LOBO SCHULTE PATIENT MEDIMPACT RX PRESCRIPT ION RX PLAN [facility] Feb 12, [address] [facility] [id number] [phone] LOBO SCHULTE PATIENT MEDIMPACT RX PRESCRIPT ION RX PLAN [facility] Feb 12, [address] [facility] [id number] [phone] LOBO SCHULTE PATIENT PRIME THERAPEUTI CS RX PRESCRIPT ION RX PLAN Feb 11, 2019 [facility] [id number] [phone] LOBO SCHULTE PATIENT PRIME THERAPEUTI CS RX PRESCRIPT ION HEALT H CARE SERVI CE Mar 14, 2009 [id number] [phone] LOBO SCHULTE PATIENT Selected Encounter This section includes the information on record at [place] for the Encounter. 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 Date/Time Primary/Secondary Diagnosis Diagnosis Name Provider Source Sep 24, 2024 08:29 AM PRIMARY Segmental and somatic dysfunction of cervical region LISADOE Cj [place] [facility] Sep 24, 2024 08:29 AM SECONDARY Cervicalgia LISADOE E [place] [facility] Sep 24, 2024 08:29 AM SECONDARY Oth intvrt disc degen, lumbosacr w discog bck & lw extrm pn LISADOE [facility] Sep 24, 2024 08:29 AM SECONDARY Pain in thoracic spine LISADOE Cj [place] [facility] Sep 24, 2024 08:29 AM SECONDARY Segmental and somatic dysfunction of lumbar region LISADOE [place] [facility] Sep 24, 2024 08:29 AM SECONDARY Segmental and somatic dysfunction of pelvic region L[place]ADOE E [place] [facility] Sep 24, 2024 08:29 AM SECONDARY Segmental and somatic dysfunction of thoracic region LISADOE Cj [facility] [facility] Plan of Treatment: Future Appointments (+ [...] Appointment Type Appointme nt Facility Name Sep 30, 2024 07:30 AM AMBULATORY - MEDICINE [facility] Oct 08, 2024 08:20 AM AMBULATORY - MEDICINE [facility] Oct 28, 2024 10:40 AM AMBULATORY - MEDICINE [facility] Nov 05, 2024 08:20 AM AMBULATORY - MEDICINE [facility] Nov 12, 2024 08:20 AM AMBULATORY - MEDICINE [facility] Nov 19, 2024 08:20 AM AMBULATORY - MEDICINE [facility] Nov 19, 2024 08:30 AM AMBULATORY - MEDICINE [facility] Active, Pending, and Scheduled Orders This section includes a listing of several types of active, pending, and scheduled orders, including clinic medications orders, diagnostic test orders, procedure orders and consult orders; where the start date of the order is 45 days before the date of the Encounter or 45 days after the date of theEncounter. The data comes from all [place] treatment facilities. Test Date/Time Test Type Test Details Facility Name Oct 20, 2024 12:00 AM Laboratory - Chemistry Order CBC BLOOD [facility] Oct 20, 2024 12:00 AM Laboratory - Chemistry Order [id number] BLOOD [facility] Oct 20, 2024 12:00 AM Laboratory - Chemistry Order COMPREHENSIVE METABOLIC PANEL GREEN LI/HEP BLD/PLAS PLASMA [facility] Oct 20, 2024 12:00 AM Laboratory - Chemistry Order CHOLESTEROL PANEL (PB) GREEN LI/HEP BLD/PLAS PLASMA [facility] Oct 20, 2024 12:00 AM Laboratory - Chemistry Order TSH (MA-PB) GOLD/RED SST SERUM [facility] Oct 20, 2024 12:00 AM Laboratory - Chemistry Order URINE ALBUMIN PROFILE-ih (PB) URINE,RANDOM [facility] Vital Signs: All taken on the encounter date This section contains inpatient and outpatient Vital Signs collected on the date of the Encounter. Date/Time Temperature Pulse Blood Pressure Respiratory Rate SP02 Pain Height Weight Body Mass Index Source Sep 24, 2024 08:20 AM 98.2 F 104 /min 136/89 mm[Hg] [facility] Social History: Smoking Status (Most current) [...] AM VA-TOBACCO QUIT 15 YRS OR MORE [facility] Tobacco Use History This section includes a history of the smoking, or tobacco-related health factors, that were collected on or before the date of the Encounter. The data comes from the [place] facility where the Encounter took place. Date/Time Smoking Status/Tobacco Use Comment F acility Oct 21, 2023 08:30 AM VA-TOBACCO QUIT 15 YRS OR MORE [facility] May 30, 2022 01:00 PM VA-TOBACCO FORMER USER [facility] May 30, 2022 01:00 PM VA-TOBACCO QUIT 15 YRS OR MORE [facility] Encounter Notes: All associated encounter notes This section contains the clinical notes associated to the Encounter. Date/Time Encounter Note(s) Provider Source Sep 24, 2024 08:17 AM CHIROPRACTIC NOTE: LOCAL TITLE: CHIROPRACTIC FOLLOW UP NOTE PB STANDARD TITLE: CHIROPRACTIC NOTE DATE OF NOTE: SEP 24, 2024@08:17 ENTRY DATE: SEP 24, 2024@08:17:27 AUTHOR: DOE GONZALEZ COSIGNER: URGENCY: STATUS: COMPLETED CHIROPRACTIC FOLLOW-UP VISIT Patient's language preference for health information: Lao Other Communication Methods Needed: SUBJECTIVE: The is a 54 year old MALE being seen in the Chiropractic clinic for follow-up visit. The [place] describes his neck and back as very sore. The rates his pain level as a 4-6/10. PAST MEDICAL HISTORY: see problem list SOCIO-ECONOMIC [...] restricted in all planes of motion. The [place] experience pain with the restricted AROM. LUMBAR/THORACIC [...] # 06/15/2022 MRI SPINE CERVICAL W/O CONT [id number] Verified 3636 1. Right paracentral herniated disc [...] exercise plan. /misha/ [facility] Signed: 09/24/2024 08:28 DOE GONZALEZ
--- OUTSIDE RECORDS SUMMARY | 2024-09-25 04:56 | XMS_ITS | Continuity of Care Document ---
Author Name [facility] Organization [facility] Care Team Providers Care De Alcholizer Name Role Phone [facility] Unavailable Unavailable Problems Combined list of problems from Department of Defense and Veterans Affairs facilities. It does not include entries that were removed or entered in error. Problem Status Onset Date Problem Type Date of Resolution Comments Source Allergic Rhinitis ([facility] [id number]) Active Condition Mar 05, 2023 Entered By: ESAU GALDAMEZ Comment: Allergy testing positive for oak [place] and Gianni grass, ragweed and some molds [place] [facility] Benign essential hypertension Active Condition [facility] Bilateral hearing loss Active Condition [facility] Cervicalgia Active Condition [place] [facility] Chronic back pain Active Condition [place] [facility] Deviated nasal septum Active Condition Aug 21, 2023 Entered By: ESAU GALDAMEZ Comment: Turbinate hypertrophy [place] [facility] Diabetes mellitus Active Condition [facility] Exposure to potentially hazardous substance Active Condition [facility] Fatigue Active Condition [facility] GERD - Gastro-Esophageal Reflux Disease ([facility] [id number]) Active Condition [place] [facility] Hemorrhoid Active Condition Apr 28 Entered By: BAYRON LYON Comment: Colonoscopy 04/22/18- Dr. Reynolds. 2 rectal polyps, plan to repeat c-scope in 5 years. [facility] Hyperlipidemia Active Condition [facility] Irritable bowel syndrome Active Condition [facility] Left inguinal hernia Active Condition Feb 11, 2024 Entered By: ESAU GALDAMEZ Comment: repair? [place] [facility] Metabolic syndrome Active Condition [facility] Morbid obesity Active Condition [facility] Nail problem Active Condition Apr 12, 2020 Entered By: BAYRON LYON Comment: L great toenail removed, has grown back irregular, thick [facility] Noncompliance with treatment Active Condition [facility] Obstructive sleep apnea Active Condition [facility] Polycythemia Active [place] [facility] Polyp Colon ([facility] [id number]) Active Condition Sep 26, 2022 Entered By: ESAU GALDAMEZ Comment: hyperplastic sigmoid; repeat 2029 [place] [facility] Posttraumatic stress disorder Active Condition [place] [facility] Restless legs Active Condition [facility] Skin tag Active Condition [facility] Tendonitis of right shoulder Active Condition [place] [facility] Tinnitus Active Condition [facility] Vitamin D deficiency Active Condition [facility] Bite of tick Inactive Condition 04/12/2020 [facility] Skin lesion Inactive Condition 04/12/2020 [facility] Diagnosis: ICD-10-CM M99.01 Segmental and somatic dysfunction of cervical region Active Diagnosis [facility] Diagnosis: ICD-10-CM F43.10 Post-traumatic stress disorder, unspecified Active Diagnosis [place] [facility] Diagnosis: ICD-10-CM S20.96XA Insect bite (nonvenomous) of unsp parts of thorax, init Active Diagnosis [facility] Diagnosis: ICD-10-CM R04.0 Epistaxis Active [facility] Diagnosis: ICD-10-CM E11.9 Type 2 diabetes mellitus without complications Active Diagnosis [facility] Diagnosis: ICD-10-CM I10 Essential (primary) hypertension Active Diagnosis [facility] Diagnosis: ICD-10-CM R52 Pain, unspecified Active Diagnosis [facility] Diagnosis: ICD-10-CM W57.XXXA Bit/stung by nonvenom insect & oth nonvenom arthropods, init Active Diagnosis [facility] Diagnosis: ICD-10-CM G47.33 Obstructive sleep apnea (adult) (pediatric) Active Diagnosis [place] [facility] Diagnosis: ICD-10-CM J30.9 Allergic rhinitis, unspecified Active Diagnosis [facility] Medications Combined list of outpatient medications from Department of Defense and Veterans Affairs facilities.Medications provided include 1) outpatient medications from the last 15 months, and 2) patient-reported medications. Medication Details Route Status Patient Instructions Prescription Expires Prescription Number Last Dispense Date Ordering Provider Order Date Order Qty Source ALOGLIPTIN 25MG TAB TAKE ONE TABLET BY MOUTH ONCE A DAY TO LOWER BLOOD SUGAR. REPLACES SAXAGLIP TIN. ORAL DISCONT INUED 09/18/2024 [id number] 4 [facility] [address] [place] [address] [facility] APPLE CIDER VINEGAR CAP/TAB TAKE BY MOUTH ONCE A DAY ORAL ACTIVE SONALI,VINNY AN J [facility] ASC[facility] ACID TAB TAKE BY MOUTH ONCE A DAY ORAL ACTIVE SONALI,VINNY AN J 2021 [facility] ATORVASTATI N CA 80MG TAB TAKE ONE TABLET BY MOUTH EVERY EVENING FOR CHOLESTE ROL. REPORT ANY UNEXPLAI EDWIN MUSCLE PAIN/WEA KNESS TO PROVIDER . ORAL ACTIVE 11/05/2024 [id number] 5 [facility] [address] [place] [address] [facility] ATORVASTATI N CA 80MG TAB TAKE ONE TABLET BY MOUTH EVERY EVENING FOR CHOLESTE ROL. REPORT ANY UNEXPLAI EDWIN MUSCLE PAIN/WEA KNESS TO PROVIDER . ORAL DISCONT INUED 08/08/2023 [id number] 4 [facility] [address] [place] [address] [facility] AZELASTINE HCL 137MCG/SPRA Y INHL,NASAL, 30ML SPRAY 1 SPRAY IN EACH NOSTRIL TWICE A DAY USE WITH FLUTICAS ONE NASAL DIRECTED *PRIME BEFORE USE* NASAL 11/27/2023 [id number] 4 [facility] RUBALCAVA,SAUL E R 2022 1 [place] [facility] CHOLECALCIF ROSENDO 25MCG (1,000UNIT) TAB TAKE ONE TABLET BY MOUTH ONCE A DAY ORAL ACTIVE SONALI,VINNY AN J 2018 [facility] CINNAMON CAP/TAB TAKE BY MOUTH ONCE A DAY ORAL ACTIVE SONALI,VINNY AN J 2021 [facility] CITALOPRAM HYDROBROMID E 40MG TAB TAKE ONE-HALF TABLET BY MOUTH EVERY MORNING FOR DEPRESSI ON ORAL 02/06/2024 [id number] 4 ESAU GALDAMEZ 2022 45 [facility] EMPAGLIFLOZ IN 25MG TAB TAKE ONE TABLET BY MOUTH ONCE A DAY FOR BLOOD SUGAR CONTROL ORAL 09/18/2024 [id number] 5 ESAU GALDAMEZ 2023 90 [facility] EZETIMIBE 10MG TAB TAKE ONE TABLET BY MOUTH ONCE A DAY TO LOWER CHOLESTE ROL ORAL 02/06/2024 [id number] 4 ESAU GALDAMEZ 2022 90 [facility] FEXOFENADIN E HCL 180MG TAB TAKE ONE TABLET BY MOUTH ONCE A DAY ORAL 11/27/2023 [id number] 4 [facility] RUBALCAVA,SAUL E R 2022 30 [place] [facility] FLUTICASONE PROPIONATE 50MCG/SPRAY SOLN,NASAL, 16GM INSTILL 2 SPRAYS IN NOSTRIL( S) ONCE A DAY FOR CHRONIC RHINOSIN USITIS (MUST BE USED DIRECTED FOR MINIMUM OF 21 DAYS TO PROVIDE ADEQUATE BENEFITS ) NASAL 10/24/2023 [id number] 4 ESAU GALDAMEZ 2022 3 [facility] GLIMEPIRIDE 4MG TAB TAKE TWO TABLETS BY MOUTH EVERY MORNING FOR DIABETES TAKE WITH BREAKFAS T OR FIRST FOOD. ORAL ACTIVE 10/21/2024 [id number] 5 ESAU GALDAMEZ 2023 180 [facility] GLIPIZIDE 10MG TAB TAKE ONE TABLET BY MOUTH TWO TIMES A DAY BEFORE MEALS FOR DIABETES . TAKE 30 MINUTES BEFORE EATING. ORAL DISCONT INUED BY PROVIDE R 10/03/2023 [id number] 4 ESAU GALDAMEZ 2022 180 [facility] LISINOPRIL 40MG TAB TAKE ONE TABLET BY MOUTH ONCE A DAY TO LOWER BLOOD PRESSURE / PROTEINU JAH ORAL SUSPEND ED 05/27/2025 [id number] 5 ESAU GALDAMEZ 2024 90 [facility] LISINOPRIL 40MG TAB TAKE ONE-HALF TABLET BY MOUTH ONCE A DAY TO LOWER BLOOD PRESSURE / PROTEINU JAH ORAL DISCONT INUED (EDIT) 05/05/2025 [id number] 5 ESAU GALDAMEZ 2024 45 [facility] MAGNESIUM OXIDE 400MG TAB TAKE ONE TABLET BY MOUTH ONCE A DAY FOR DIETARY MAGNESIU M SUPPLEME NTATION ORAL 02/06/2024 [id number] 4 ESAU GALDAMEZ 2022 120 [facility] OMEPRAZOLE 20MG CAP,EC TAKE ONE CAPSULE BY MOUTH EVERY MORNING TO LOWER STOMACH ACID. TAKE 30 MINUTES PRIOR TO FOOD. ORAL 04/18/2024 [id number] 4 ESAU GALDAMEZ 2023 90 [facility] ROPINIROLE HCL 2MG TAB TAKE ONE TABLET BY MOUTH THREE TIMES A DAY NEEDED FOR RESTLESS LEG SYNDROME ORAL ACTIVE 05/27/2025 [id number] 5 ESAU GALDAMEZ 2024 180 [facility] ROPINIROLE HCL 2MG TAB TAKE ONE TABLET BY MOUTH AT BEDTIME FOR RESTLESS LEG SYNDROME ORAL DISCONT INUED (EDIT) 11/05/2024 [id number] 5 ESAU GALDAMEZ 2023 90 [facility] ROPINIROLE HCL 2MG TAB TAKE ONE TABLET BY MOUTH AT BEDTIME FOR RESTLESS LEG SYNDROME ORAL DISCONT INUED 10/24/2023 [id number] 4 ESAU GALDAMEZ 2022 90 [facility] SEMAGLUTIDE 0.25MG/0.37 5ML INJ,SOLN,PE N,3ML INJECT 0.5MG UNDER THE SKIN EVERY WEEK FOR DIABETES SUBCUT ANEOUS DISCONT INUED (EDIT) 10/21/2024 [id number] 5 ESAU GALDAMEZ 2023 1 [facility] SEMAGLUTIDE 0.25MG/0.37 5ML INJ,SOLN,PE N,3ML INJECT 0.25MG UNDER THE SKIN EVERY WEEK FOR 30 DAYS, THEN INJECT 0.5MG EVERY WEEK FOR DIABETES SUBCUT ANEOUS DISCONT INUED 10/21/2024 [id number] 4 [facility] 2023 1 [facility] SEMAGLUTIDE 1MG/0.75ML INJ,SOLN,PE N,3ML INJECT 1MG UNDER THE SKIN EVERY WEEK FOR DIABETES SUBCUT ANEOUS SUSPEND ED 06/04/2025 [id number] 5 [facility] 2024 3 [facility] SITAGLIPTIN (EQV-ZITUVI O) 100MG TAB TAKE ONE TABLET BY MOUTH ONCE A DAY FOR DIABETES (REPLACE S SAXAGLIP TIN) ORAL DISCONT INUED 09/19/2024 [id number] 4 [facility] [address] [place] [address] [facility] TAMSULOSIN HCL 0.4MG CAP TAKE ONE CAPSULE BY MOUTH EVERY EVENING FOR BENIGN PROSTATI C HYPERPLA BERTRAND APPROXIM ATELY 30 MINUTES AFTER THE SAME MEAL EACH DAY ORAL 04/18/2024 [id number] 4 [facility] [address] [place] [address] [facility] TUMERIC CAP/TAB TAKE BY MOUTH ORAL ACTIVE SONALI,VINNY AN J 2021 [facility] [place] [facility] Allergies, Adverse Reactions, Alerts Combined list of allergies from Department of Defense and Veterans Affairs facilities. It does not include entries that were removed or entered in error. Substance Category Reaction Severity Reaction type Status Date Reported Comments Source METFORMIN Propensity to adverse reactions to drug (finding) Diarrhea active 5 [facility] PENICILLIN Propensity to adverse reactions to drug (finding) active 8 [facility] Immunizations Combined list of available immunizations from the Department of Defense and Veterans Affairs facilities. Immunization Series Date Given Administered By Site Reaction Lot Number CVX Code Drug Traffic Monitor Specialist Status Comments Source TDAP 2022 ROOPA BAXTER LEFT DELTO ID [id number] complet ed [facility] COVID-19 (MODERNA), MRNA, LNP-S, PF, 100 MCG/0.5 ML DOSE 2 2020 207 complet ed [facility] COVID-19 (MODERNA), MRNA, LNP-S, PF, 100 MCG/0.5 ML DOSE 1 2020 207 complet ed [facility] Results Combined list of recent chemistry, hematology and other laboratory results from Department of Defense and Veterans Affairs, ranging from 15 months to all on record, depending upon the facility. Order Name Results Value Reference Range Date Interpretation Specimen Comments Source HGA1C HEMOGLOBIN A1C/HEMOGLO BIN.TOTAL IN BLOOD 7.7 4.0 - 6.0 05/20 H Specimen Type: BLOOD No comment entered. Ordering Provider: JANE GALDAMEZ MY Report Released Date/Time: Oct 21, 2023 08:52 AM Reporting Lab: [place] [facility] [address] [place] [address] Performing Lab: [place] [facility] [address] [place] [address] [facility] CHOLESTERO L PANEL (PB) CHOLESTEROL [MASS/VOLUM E] IN SERUM OR PLASMA 178 mg/dL 0 - 200 05/20 Specimen Type: PLASMA Comment: LDL calculation invalid when Triglyceride exceeds 250 mg/dl Ordering Provider: JANE GALDAMEZ MY Report Released Date/Time: Oct 21, 2023 08:52 AM Reporting Lab: [place] [facility] [address] [place] [address] Performing Lab: [place] [facility] [address] [place] [address] [facility] CHOLESTERO L PANEL (PB) TRIGLYCERID E [MASS/VOLUM E] IN SERUM OR PLASMA 275 mg/dL 0 - 150 05/20 H Specimen Type: PLASMA Comment: LDL calculation invalid when Triglyceride exceeds 250 mg/dl Ordering Provider: JANE GALDAMEZ MY Report Released Date/Time: Oct 21, 2023 08:52 AM Reporting Lab: [place] [facility] [address] [place] [address] Performing Lab: [place] [facility] [address] [place] [address] [facility] CHOLESTERO L PANEL (PB) CHOLESTEROL IN LDL [MASS/VOLUM E] IN SERUM OR PLASMA BY CALCULATION commen tmg/dL 05/20 Specimen Type: PLASMA Comment: LDL calculation invalid when Triglyceride exceeds 250 mg/dl Ordering Provider: JANE GALDAMEZ MY Report Released Date/Time: Oct 21, 2023 08:52 AM Reporting Lab: [place] [facility] [address] [place] [address] Performing Lab: [place] [facility] [address] [place] [address] [facility] CHOLESTERO L PANEL (PB) CHOLESTEROL IN HDL [MASS/VOLUM E] IN SERUM OR PLASMA 32.0 mg/dL 40 05/20 L Specimen Type: PLASMA Comment: LDL calculation invalid when Triglyceride exceeds 250 mg/dl Ordering Provider: JANE GALDAMEZ MY Report Released Date/Time: Oct 21, 2023 08:52 AM Reporting Lab: [place] [facility] [address] [place] [address] Performing Lab: [place] [facility] [address] [place] [address] [facility] CHOLESTERO L PANEL (PB) CHOLESTEROL IN HDL/CHOLEST ROSENDO.TOTAL [MASS RATIO] IN SERUM OR PLASMA 18.0 25 05/20 Specimen Type: PLASMA Comment: LDL calculation invalid when Triglyceride exceeds 250 mg/dl Ordering Provider: JANE GALDAMEZ MY Report Released Date/Time: Oct 21, 2023 08:52 AM Reporting Lab: [place] [facility] [address] [place] [address] Performing Lab: [place] [facility] [address] [place] [address] [facility] CHOLESTERO L PANEL (PB) CHOLESTEROL IN LDL [MASS/VOLUM E] IN SERUM OR PLASMA BY DIRECT ASSAY 115.2 mg/dL 0 - 99.9 05/20 H Specimen Type: PLASMA Comment: LDL calculation invalid when Triglyceride exceeds 250 mg/dl Ordering Provider: JANE GALDAMEZ MY Report Released Date/Time: Oct 21, 2023 08:52 AM Reporting Lab: [place] [facility] [address] [place] [address] Performing Lab: [place] [facility] [address] [place] [address] [facility] COMPREHENS JERRELL METABOLIC PANEL CREATININE [MASS/VOLUM E] IN SERUM OR PLASMA 0.93 mg/dL 0.7 - 1.3 05/20 Specimen Type: PLASMA Comment: LDL calculation invalid when Triglyceride exceeds 250 mg/dl Ordering Provider: JANE GALDAMEZ MY Report Released Date/Time: Oct 21, 2023 08:52 AM Reporting Lab: [place] [facility] [address] [place] [address] Performing Lab: [place] [facility] [address] [place] [address] [facility] COMPREHENS JERRELL METABOLIC PANEL UREA NITROGEN [MASS/VOLUM E] IN SERUM OR PLASMA 18 mg/dL 9 - 25 05/20 Specimen Type: PLASMA Comment: LDL calculation invalid when Triglyceride exceeds 250 mg/dl Ordering Provider: JANE GALDAMEZ MY Report Released Date/Time: Oct 21, 2023 08:52 AM Reporting Lab: [place] [facility] [address] [place] [address] Performing Lab: [place] [facility] [address] [place] [address] [facility] COMPREHENS JERRELL METABOLIC PANEL GLUCOSE [MASS/VOLUM E] IN SERUM OR PLASMA 112 mg/dL 72 - 99 05/20 H Specimen Type: PLASMA Comment: LDL calculation invalid when Triglyceride exceeds 250 mg/dl Ordering Provider: JANE GALDAMEZ MY Report Released Date/Time: Oct 21, 2023 08:52 AM Reporting Lab: [place] [facility] [address] [place] [address] Performing Lab: [place] [facility] [address] [place] [address] [facility] COMPREHENS JERRELL METABOLIC PANEL SODIUM [MOLES/VOLU ME] IN SERUM OR PLASMA 138 meq/L 136 - 145 05/20 Specimen Type: PLASMA Comment: LDL calculation invalid when Triglyceride exceeds 250 mg/dl Ordering Provider: JANE GALDAMEZ MY Report Released Date/Time: Oct 21, 2023 08:52 AM Reporting Lab: [place] [facility] [address] [place] [address] Performing Lab: [place] [facility] [address] [place] [address] [facility] COMPREHENS JERRELL METABOLIC PANEL POTASSIUM [MOLES/VOLU ME] IN SERUM OR PLASMA 4.2 meq/L 3.5 - 5 05/20 Specimen Type: PLASMA Comment: LDL calculation invalid when Triglyceride exceeds 250 mg/dl Ordering Provider: JANE GALDAMEZ MY Report Released Date/Time: Oct 21, 2023 08:52 AM Reporting Lab: [place] [facility] [address] [place] [address] Performing Lab: [place] [facility] [address] [place] [address] [facility] COMPREHENS JERRELL METABOLIC PANEL CHLORIDE [MOLES/VOLU ME] IN SERUM OR PLASMA 105 meq/L 98 - 107 05/20 Specimen Type: PLASMA Comment: LDL calculation invalid when Triglyceride exceeds 250 mg/dl Ordering Provider: JANE GALDAMEZ MY Report Released Date/Time: Oct 21, 2023 08:52 AM Reporting Lab: [place] [facility] [address] [place] [address] Performing Lab: [place] [facility] [address] [place] [address] [facility] COMPREHENS JERRELL METABOLIC PANEL CARBON DIOXIDE, TOTAL [MOLES/VOLU ME] IN SERUM OR PLASMA 24 meq/L 22 - 31 05/20 Specimen Type: PLASMA Comment: LDL calculation invalid when Triglyceride exceeds 250 mg/dl Ordering Provider: JANE GALDAMEZ MY Report Released Date/Time: Oct 21, 2023 08:52 AM Reporting Lab: [place] [facility] [address] [place] [address] Performing Lab: [place] [facility] [address] [place] [address] [facility] COMPREHENS JERRELL METABOLIC PANEL CALCIUM [MASS/VOLUM E] IN SERUM OR PLASMA 8.8 mg/dL 8.4 - 10.4 05/20 Specimen Type: PLASMA Comment: LDL calculation invalid when Triglyceride exceeds 250 mg/dl Ordering Provider: JANE GALDAMEZ MY Report Released Date/Time: Oct 21, 2023 08:52 AM Reporting Lab: [place] [facility] [address] [place] [address] Performing Lab: [place] [facility] [address] [place] [address] [facility] COMPREHENS JERRELL METABOLIC PANEL PROTEIN [MASS/VOLUM E] IN SERUM OR PLASMA 7.3 g/dL 6 - 8.6 05/20 Specimen Type: PLASMA Comment: LDL calculation invalid when Triglyceride exceeds 250 mg/dl Ordering Provider: JANE GALDAMEZ MY Report Released Date/Time: Oct 21, 2023 08:52 AM Reporting Lab: [place] [facility] [address] [place] [address] Performing Lab: [place] [facility] [address] [place] [address] [facility] COMPREHENS JERRELL METABOLIC PANEL ALBUMIN [MASS/VOLUM E] IN SERUM OR PLASMA 4.6 g/dL 3.4 - 5 05/20 Specimen Type: PLASMA Comment: LDL calculation invalid when Triglyceride exceeds 250 mg/dl Ordering Provider: JANE GALDAMEZ MY Report Released Date/Time: Oct 21, 2023 08:52 AM Reporting Lab: [place] [facility] [address] [place] [address] Performing Lab: [place] [facility] [address] [place] [address] [facility] COMPREHENS JERRELL METABOLIC PANEL BILIRUBIN.T OTAL [MASS/VOLUM E] IN SERUM OR PLASMA 0.6 mg/dL 0.2 - 1.2 05/20 Specimen Type: PLASMA Comment: LDL calculation invalid when Triglyceride exceeds 250 mg/dl Ordering Provider: JANE GALDAMEZ MY Report Released Date/Time: Oct 21, 2023 08:52 AM Reporting Lab: [place] [facility] [address] [place] [address] Performing Lab: [place] [facility] [address] [place] [address] [facility] COMPREHENS JERRELL METABOLIC PANEL ALKALINE PHOSPHATASE [ENZYMATIC ACTIVITY/VO LUME] IN SERUM OR PLASMA 72 U/L 40 - 150 05/20 Specimen Type: PLASMA Comment: LDL calculation invalid when Triglyceride exceeds 250 mg/dl Ordering Provider: JANE GALDAMEZ MY Report Released Date/Time: Oct 21, 2023 08:52 AM Reporting Lab: [place] [facility] [address] [place] [address] Performing Lab: [place] [facility] [address] [place] [address] [facility] COMPREHENS JERRELL METABOLIC PANEL ASPARTATE AMINOTRANSF ERASE [ENZYMATIC ACTIVITY/VO LUME] IN SERUM OR PLASMA 19 U/L 5 - 34 05/20 Specimen Type: PLASMA Comment: LDL calculation invalid when Triglyceride exceeds 250 mg/dl Ordering Provider: JANE GALDAMEZ MY Report Released Date/Time: Oct 21, 2023 08:52 AM Reporting Lab: [place] [facility] [address] [place] [address] Performing Lab: [place] [facility] [address] [place] [address] [facility] COMPREHENS JERRELL METABOLIC PANEL ALANINE AMINOTRANSF ERASE [ENZYMATIC ACTIVITY/VO LUME] IN SERUM OR PLASMA 31 U/L 8 - 40 05/20 Specimen Type: PLASMA Comment: LDL calculation invalid when Triglyceride exceeds 250 mg/dl Ordering Provider: JANE GALDAMEZ MY Report Released Date/Time: Oct 21, 2023 08:52 AM Reporting Lab: [place] [facility] [address] [place] [address] Performing Lab: [place] [facility] [address] [place] [address] [facility] COMPREHENS JERRELL METABOLIC PANEL GLOMERULAR FILTRATION RATE/1.73 SQ M.PREDICTED [VOLUME RATE/AREA] IN SERUM, PLASMA OR BLOOD BY CREATININE- BASED FORMULA (CKD-EPI 2020) 99 05/20 Specimen Type: PLASMA Comment: LDL calculation invalid when Triglyceride exceeds 250 mg/dl Ordering Provider: JANE GALDAMEZ MY Report Released Date/Time: Oct 21, 2023 08:52 AM Reporting Lab: [place] [facility] [address] [place] [address] Performing Lab: [place] [facility] [address] [place] [id number] [facility] HGA1C HEMOGLOBIN A1C/HEMOGLO BIN.TOTAL IN BLOOD 7.1 4.0 - 6.0 01/13 H Specimen Type: BLOOD No comment entered. Ordering Provider: JANE GALDAMEZ MY Report Released Date/Time: Oct 21, 2023 08:52 AM Reporting Lab: [place] [facility] [address] [place] [address] Performing Lab: [place] [facility] [address] [place] [address] [facility] HGA1C HEMOGLOBIN A1C/HEMOGLO BIN.TOTAL IN BLOOD 9.3 4.0 - 6.0 10/14 H Specimen Type: BLOOD No comment entered. Ordering Provider: JANE GALDAMEZ MY Report Released Date/Time: Oct 23, 2022 09:14 AM Reporting Lab: [place] [facility] [address] [place] [address] Performing Lab: [place] [facility] [address] [place] [address] [facility] TSH (MA-PB) THYROTROPIN [UNITS/VOLU ME] IN SERUM OR PLASMA 1.333 u[IU]/ mL 0.47 - 5 10/14 Specimen Type: SERUM No comment entered. Ordering Provider: JANE GALDAMEZ MY Report Released Date/Time: Oct 23, 2022 09:14 AM Reporting Lab: [place] [facility] [address] [place] [address] Performing Lab: [place] [facility] [address] [place] [address] [facility] CHOLESTERO L PANEL (PB) CHOLESTEROL [MASS/VOLUM E] IN SERUM OR PLASMA 171 mg/dL 0 - 200 10/14 Specimen Type: PLASMA No comment entered. Ordering Provider: JANE GALDAMEZ MY Report Released Date/Time: Oct 23, 2022 09:14 AM Reporting Lab: [place] [facility] [address] [place] [facility] Performing Lab: [place] [facility] [address] [place] [address] [facility] CHOLESTERO L PANEL (PB) TRIGLYCERID E [MASS/VOLUM E] IN SERUM OR PLASMA 205 mg/dL 0 - 150 10/14 H Specimen Type: PLASMA No comment entered. Ordering Provider: JANE GALDAMEZ MY Report Released Date/Time: Oct 23, 2022 09:14 AM Reporting Lab: [place] [facility] [address] [place] [address] Performing Lab: [place] [facility] [address] [place] [address] [facility] CHOLESTERO L PANEL (PB) CHOLESTEROL IN LDL [MASS/VOLUM E] IN SERUM OR PLASMA BY CALCULATION 100.4 mg/dL 10/14 Specimen Type: PLASMA No comment entered. Ordering Provider: JANE GALDAMEZ MY Report Released Date/Time: Oct 23, 2022 09:14 AM Reporting Lab: [place] [facility] [address] [place] [address] Performing Lab: [place] [facility] [address] [place] [address] [facility] CHOLESTERO L PANEL (PB) CHOLESTEROL IN HDL [MASS/VOLUM E] IN SERUM OR PLASMA 29.6 mg/dL 40 10/14 L Specimen Type: PLASMA No comment entered. Ordering Provider: JANE GALDAMEZ MY Report Released Date/Time: Oct 23, 2022 09:14 AM Reporting Lab: [place] [facility] [address] [place] [address] Performing Lab: [place] [facility] [address] [place] [address] [facility] CHOLESTERO L PANEL (PB) CHOLESTEROL IN HDL/CHOLEST ROSENDO.TOTAL [MASS RATIO] IN SERUM OR PLASMA 17.3 25 10/14 Specimen Type: PLASMA No comment entered. Ordering Provider: JANE GALDAMEZ MY Report Released Date/Time: Oct 23, 2022 09:14 AM Reporting Lab: [place] [facility] [address] [place] [address] Performing Lab: [place] [facility] [address] [place] [address] [facility] COMPREHENS JERRELL METABOLIC PANEL CREATININE [MASS/VOLUM E] IN SERUM OR PLASMA 1.04 mg/dL 0.7 - 1.3 10/14 Specimen Type: PLASMA No comment entered. Ordering Provider: JANE GALDAMEZ MY Report Released Date/Time: Oct 23, 2022 09:14 AM Reporting Lab: [place] [facility] [address] [place] [address] Performing Lab: [place] [facility] [address] [place] [address] [facility] COMPREHENS JERRELL METABOLIC PANEL UREA NITROGEN [MASS/VOLUM E] IN SERUM OR PLASMA 14 mg/dL 9 - 25 10/14 Specimen Type: PLASMA No comment entered. Ordering Provider: JANE GALDAMEZ MY Report Released Date/Time: Oct 23, 2022 09:14 AM Reporting Lab: [place] [facility] [address] [place] [address] Performing Lab: [place] [facility] [address] [place] [id number] [facility] COMPREHENS JERRELL METABOLIC PANEL GLUCOSE [MASS/VOLUM E] IN SERUM OR PLASMA 165 mg/dL 72 - 99 10/14 H Specimen Type: PLASMA No comment entered. Ordering Provider: JANE GALDAMEZ MY Report Released Date/Time: Oct 23, 2022 09:14 AM Reporting Lab: [place] [facility] [address] [place] [address] Performing Lab: [place] [facility] [address] [place] [address] [facility] COMPREHENS JERRELL METABOLIC PANEL SODIUM [MOLES/VOLU ME] IN SERUM OR PLASMA 135 meq/L 136 - 145 10/14 L Specimen Type: PLASMA No comment entered. Ordering Provider: JANE GALDAMEZ MY Report Released Date/Time: Oct 23, 2022 09:14 AM Reporting Lab: [place] [facility] [address] [place] [address] Performing Lab: [place] [facility] [address] [place] [address] [facility] COMPREHENS JERRELL METABOLIC PANEL POTASSIUM [MOLES/VOLU ME] IN SERUM OR PLASMA 4.1 meq/L 3.5 - 5 10/14 Specimen Type: PLASMA No comment entered. Ordering Provider: JANE GALDAMEZ MY Report Released Date/Time: Oct 23, 2022 09:14 AM Reporting Lab: [place] [facility] [address] [place] [address] Performing Lab: [place] [facility] [address] [place] [address] [facility] COMPREHENS JERRELL METABOLIC PANEL CHLORIDE [MOLES/VOLU ME] IN SERUM OR PLASMA 103 meq/L 98 - 107 10/14 Specimen Type: PLASMA No comment entered. Ordering Provider: JANE GALDAMEZ MY Report Released Date/Time: Oct 23, 2022 09:14 AM Reporting Lab: [place] [facility] [address] [place] [address] Performing Lab: [place] [facility] [address] [place] [address] [facility] COMPREHENS JERRELL METABOLIC PANEL CARBON DIOXIDE, TOTAL [MOLES/VOLU ME] IN SERUM OR PLASMA 21 meq/L 22 - 31 10/14 L Specimen Type: PLASMA No comment entered. Ordering Provider: JANE GALDAMEZ MY Report Released Date/Time: Oct 23, 2022 09:14 AM Reporting Lab: [place] [facility] [address] [place] [address] Performing Lab: [place] [facility] [address] [place] [address] [facility] COMPREHENS JERRELL METABOLIC PANEL CALCIUM [MASS/VOLUM E] IN SERUM OR PLASMA 9.1 mg/dL 8.4 - 10.4 10/14 Specimen Type: PLASMA No comment entered. Ordering Provider: JANE GALDAMEZ MY Report Released Date/Time: Oct 23, 2022 09:14 AM Reporting Lab: [place] [facility] [address] [place] [address] Performing Lab: [place] [facility] [address] [place] [address] [facility] COMPREHENS JERRELL METABOLIC PANEL PROTEIN [MASS/VOLUM E] IN SERUM OR PLASMA 7.4 g/dL 6 - 8.6 10/14 Specimen Type: PLASMA No comment entered. Ordering Provider: JANE GALDAMEZ MY Report Released Date/Time: Oct 23, 2022 09:14 AM Reporting Lab: [place] [facility] [address] [place] [address] Performing Lab: [place] [facility] [address] [place] [address] [facility] COMPREHENS JERRELL METABOLIC PANEL ALBUMIN [MASS/VOLUM E] IN SERUM OR PLASMA 4.4 g/dL 3.4 - 5 10/14 Specimen Type: PLASMA No comment entered. Ordering Provider: JANE GALDAMEZ MY Report Released Date/Time: Oct 23, 2022 09:14 AM Reporting Lab: [place] [facility] [address] [place] [address] Performing Lab: [place] [facility] [address] [place] [address] [facility] COMPREHENS JERRELL METABOLIC PANEL BILIRUBIN.T OTAL [MASS/VOLUM E] IN SERUM OR PLASMA 0.7 mg/dL 0.2 - 1.2 10/14 Specimen Type: PLASMA No comment entered. Ordering Provider: JANE GALDAMEZ MY Report Released Date/Time: Oct 23, 2022 09:14 AM Reporting Lab: [place] [facility] [address] [place] [address] Performing Lab: [place] [facility] [address] [place] [address] [facility] COMPREHENS JERRELL METABOLIC PANEL ALKALINE PHOSPHATASE [ENZYMATIC ACTIVITY/VO LUME] IN SERUM OR PLASMA 70 U/L 40 - 150 10/14 Specimen Type: PLASMA No comment entered. Ordering Provider: JANE GALDAMEZ MY Report Released Date/Time: Oct 23, 2022 09:14 AM Reporting Lab: [place] [facility] [address] [place] [address] Performing Lab: [place] [facility] [address] [place] [address] [place] [facility] COMPREHENS JERRELL METABOLIC PANEL ASPARTATE AMINOTRANSF ERASE [ENZYMATIC ACTIVITY/VO LUME] IN SERUM OR PLASMA 17 U/L 5 - 34 10/14 Specimen Type: PLASMA No comment entered. Ordering Provider: JANE GALDAMEZ MY Report Released Date/Time: Oct 23, 2022 09:14 AM Reporting Lab: [place] [facility] [address] [place] [address] Performing Lab: [place] [facility] [address] [place] [address] [facility] COMPREHENS JERRELL METABOLIC PANEL ALANINE AMINOTRANSF ERASE [ENZYMATIC ACTIVITY/VO LUME] IN SERUM OR PLASMA 29 U/L 8 - 40 10/14 Specimen Type: PLASMA No comment entered. Ordering Provider: JANE GALDAMEZ MY Report Released Date/Time: Oct 23, 2022 09:14 AM Reporting Lab: [place] [facility] [address] [place] [address] Performing Lab: [place] [facility] [address] [place] [address] [facility] COMPREHENS JERRELL METABOLIC PANEL GLOMERULAR FILTRATION RATE/1.73 SQ M.PREDICTED [VOLUME RATE/AREA] IN SERUM, PLASMA OR BLOOD BY CREATININE- BASED FORMULA (CKD-EPI 2020) 86 10/14 Specimen Type: PLASMA No comment entered. Ordering Provider: JANE GALDAMEZ MY Report Released Date/Time: Oct 23, 2022 09:14 AM Reporting Lab: [place] [facility] [address] [place] [address] Performing Lab: [place] [facility] [address] [place] [address] [facility] URINE ALBUMIN PROFILE-ih (PB) ALBUMIN [MASS/VOLUM E] IN URINE 8.30 mg/L 0 - 30 10/14 Specimen Type: URINE No comment entered. Ordering Provider: JANE GALDAMEZ MY Report Released Date/Time: Oct 23, 2022 09:14 AM Reporting Lab: [place] [facility] [address] [place] [address] Performing Lab: [place] [facility] [address] [place] [address] [place] [facility] URINE ALBUMIN PROFILE-ih (PB) ALBUMIN/CRE ATININE [MASS RATIO] IN URINE 11.67 ug/mg 10/14 Specimen Type: URINE No comment entered. Ordering Provider: JANE GALDAMEZ MY Report Released Date/Time: Oct 23, 2022 09:14 AM Reporting Lab: [place] [facility] [address] [place] [address] [place] [address] Performing Lab: [place] [facility] [address] [place] [address] [facility] URINE ALBUMIN PROFILE-ih (PB) CREATININE [MASS/VOLUM E] IN URINE 71.14 mg/dL 10/14 Specimen Type: URINE No comment entered. Ordering Provider: JANE GALDAMEZ MY Report Released Date/Time: Oct 23, 2022 09:14 AM Reporting Lab: [place] [facility] [address] [place] [address] Performing Lab: [place] [facility] [address] [place] [address] [facility] CBC LEUKOCYTES [#/VOLUME] IN BLOOD BY AUTOMATED COUNT 7.3 10*3/u L 3.6 - 11.2 10/14 Specimen Type: BLOOD No comment entered. Ordering Provider: JANE GALDAMEZ MY Report Released Date/Time: Oct 23, 2022 09:14 AM Reporting Lab: [place] [facility] [address] [place] [address] Performing Lab: [place] [facility] [address] [place] [address] [facility] CBC ERYTHROCYTE S [#/VOLUME] IN BLOOD BY AUTOMATED COUNT 5.65 10*6/u L 4.10 - 5.70 10/14 Specimen Type: BLOOD No comment entered. Ordering Provider: JANE GALDAMEZ MY Report Released Date/Time: Oct 23, 2022 09:14 AM Reporting Lab: [place] [facility] [address] [place] [address] Performing Lab: [place] [facility] [address] [place] [address] [facility] CBC HEMOGLOBIN [MASS/VOLUM E] IN BLOOD 17.8 g/dL 13.1 - 16.8 10/14 H Specimen Type: BLOOD No comment entered. Ordering Provider: JANE GALDAMEZ MY Report Released Date/Time: Oct 23, 2022 09:14 AM Reporting Lab: [place] [facility] [address] [place] [address] Performing Lab: [place] [facility] [address] [place] [address] [facility] CBC HEMATOCRIT [VOLUME FRACTION] OF BLOOD 51.3 38.2 - 48.4 10/14 H Specimen Type: BLOOD No comment entered. Ordering Provider: JANE GALDAMEZ MY Report Released Date/Time: Oct 23, 2022 09:14 AM Reporting Lab: [place] [facility] [address] [place] [address] Performing Lab: [place] [facility] [address] [place] [address] [facility] CBC MCV [ENTITIC VOLUME] BY AUTOMATED COUNT 90.8 fL 80.0 - 100.0 10/14 Specimen Type: BLOOD No comment entered. Ordering Provider: JANE GALDAMEZ MY Report Released Date/Time: Oct 23, 2022 09:14 AM Reporting Lab: [place] [facility] [address] [place] [address] Performing Lab: [place] [facility] [address] [place] [facility] [facility] CBC MCH [ENTITIC MASS] BY AUTOMATED COUNT 31.5 pg 27.0 - 34.0 10/14 Specimen Type: BLOOD No comment entered. Ordering Provider: JANE GALDAMEZ MY Report Released Date/Time: Oct 23, 2022 09:14 AM Reporting Lab: [place] [facility] [address] [place] [address] Performing Lab: [place] [facility] [address] [place] [address] [facility] CBC MCHC [MASS/VOLUM E] BY AUTOMATED COUNT 34.7 g/dL 33.0 - 36.0 10/14 Specimen Type: BLOOD No comment entered. Ordering Provider: JANE GALDAMEZ MY Report Released Date/Time: Oct 23, 2022 09:14 AM Reporting Lab: [place] [facility] [address] [place] [address] Performing Lab: [place] [facility] [address] [place] [address] [facility] CBC PLATELETS [#/VOLUME] IN BLOOD BY AUTOMATED COUNT 230 10*3/u L 150 - 400 10/14 Specimen Type: BLOOD No comment entered. Ordering Provider: JANE GALDAMEZ MY Report Released Date/Time: Oct 23, 2022 09:14 AM Reporting Lab: [place] [facility] [address] [place] [address] Performing Lab: [place] [facility] [address] [place] [address] [facility] CBC PLATELET MEAN VOLUME [ENTITIC VOLUME] IN BLOOD BY AUTOMATED COUNT 10.0 fL 7.5 - 11.2 10/14 Specimen Type: BLOOD No comment entered. Ordering Provider: JANE GALDAMEZ MY Report Released Date/Time: Oct 23, 2022 09:14 AM Reporting Lab: [place] [facility] [address] [place] [address] Performing Lab: [place] [facility] [address] [place] [address] [facility] CBC ERYTHROCYTE DISTRIBUTIO N WIDTH [RATIO] BY AUTOMATED COUNT 12.7 11.8 - 15.1 10/14 Specimen Type: BLOOD No comment entered. Ordering Provider: JANE GALDAMEZ MY Report Released Date/Time: Oct 23, 2022 09:14 AM Reporting Lab: [place] [facility] [address] [place] [address] Performing Lab: [place] [facility] [address] [place] [address] [facility] CBC LYMPHOCYTES /100 LEUKOCYTES IN BLOOD BY AUTOMATED COUNT 18.7 10/14 Specimen Type: BLOOD No comment entered. Ordering Provider: JANE GALDAMEZ MY Report Released Date/Time: Oct 23, 2022 09:14 AM Reporting Lab: [place] [facility] [address] [place] [address] Performing Lab: [place] [facility] [address] [place] [address] [facility] CBC MONOCYTES/1 00 LEUKOCYTES IN BLOOD BY AUTOMATED COUNT 8.7 10/14 Specimen Type: BLOOD No comment entered. Ordering Provider: JANE GALDAMEZ MY Report Released Date/Time: Oct 23, 2022 09:14 AM Reporting Lab: [place] [facility] [address] [place] [address] Performing Lab: [place] [facility] [address] [place] [address] [facility] CBC NEUTROPHILS /100 LEUKOCYTES IN BLOOD BY AUTOMATED COUNT 69.1 10/14 Specimen Type: BLOOD No comment entered. Ordering Provider: JANE GALDAMEZ MY Report Released Date/Time: Oct 23, 2022 09:14 AM Reporting Lab: [place] [facility] [address] [place] [address] Performing Lab: [place] [facility] [address] [place] [address] [facility] CBC EOSINOPHILS /100 LEUKOCYTES IN BLOOD BY AUTOMATED COUNT 2.5 10/14 Specimen Type: BLOOD No comment entered. Ordering Provider: JANE GADLAMEZ MY Report Released Date/Time: Oct 23, 2022 09:14 AM Reporting Lab: [place] [facility] [address] [place] [address] Performing Lab: [place] [facility] [address] [place] [address] [facility] CBC BASOPHILS/1 00 LEUKOCYTES IN BLOOD BY AUTOMATED COUNT 0.7 10/14 Specimen Type: BLOOD No comment entered. Ordering Provider: JANE GALDAMEZ MY Report Released Date/Time: Oct 23, 2022 09:14 AM Reporting Lab: [place] [facility] [address] [place] [address] Performing Lab: [place] [facility] [address] [place] [address] [facility] CBC LYMPHOCYTES [#/VOLUME] IN BLOOD BY AUTOMATED COUNT 1.36 10*3/u L 0.77 - 4.50 10/14 Specimen Type: BLOOD No comment entered. Ordering Provider: JANE GALDAMEZ MY Report Released Date/Time: Oct 23, 2022 09:14 AM Reporting Lab: [place] [facility] [address] [place] [address] Performing Lab: [place] [facility] [address] [place] [address] [facility] CBC MONOCYTES [#/VOLUME] IN BLOOD BY AUTOMATED COUNT 0.63 10*3/u L 0.19 - 0.8 10/14 Specimen Type: BLOOD No comment entered. Ordering Provider: JANE GALDAMEZ MY Report Released Date/Time: Oct 23, 2022 09:14 AM Reporting Lab: [place] [facility] [address] [place] [address] Performing Lab: [place] [facility] [address] [place] [address] [facility] CBC NEUTROPHILS [#/VOLUME] IN BLOOD BY AUTOMATED COUNT 5.03 10*3/u L 2.10 - 8.00 10/14 Specimen Type: BLOOD No comment entered. Ordering Provider: JANE GALDAMEZ MY Report Released Date/Time: Oct 23, 2022 09:14 AM Reporting Lab: [place] [facility] [address] [place] [address] Performing Lab: [place] [facility] [address] [place] [address] [facility] CBC EOSINOPHILS [#/VOLUME] IN BLOOD BY AUTOMATED COUNT 0.18 10*3/u L 0.00 - 0.60 10/14 Specimen Type: BLOOD No comment entered. Ordering Provider: JANE GALDAMEZ MY Report Released Date/Time: Oct 23, 2022 09:14 AM Reporting Lab: [place] [facility] [address] [place] [address] Performing Lab: [place] [facility] [address] [place] [address] [facility] CBC BASOPHILS [#/VOLUME] IN BLOOD BY AUTOMATED COUNT 0.05 10*3/u L 0.00 - 0.20 10/14 Specimen Type: BLOOD No comment entered. Ordering Provider: JANE GALDAMEZ MY Report Released Date/Time: Oct 23, 2022 09:14 AM Reporting Lab: [place] [facility] [address] [place] [address] Performing Lab: [place] [facility] [address] [place] [address] [facility] CBC IMMATURE GRANULOCYTE S/100 LEUKOCYTES IN BLOOD BY AUTOMATED COUNT 0.3 10/14 Specimen Type: BLOOD No comment entered. Ordering Provider: JANE GALDAMEZ MY Report Released Date/Time: Oct 23, 2022 09:14 AM Reporting Lab: [place] [facility] [address] [place] [address] Performing Lab: [place] [facility] [address] [place] [address] [facility] CBC IMMATURE GRANULOCYTE S [#/VOLUME] IN BLOOD BY AUTOMATED COUNT 0.02 10*3/u L 0.00 - 0.05 10/14 Specimen Type: BLOOD No comment entered. Ordering Provider: JANE GALDAMEZ MY Report Released Date/Time: Oct 23, 2022 09:14 AM Reporting Lab: [place] [facility] [address] [place] [address] Performing Lab: [place] [facility] [address] [place] [address] [facility] Vital Signs Combined list of inpatient and outpatient Vital Signs from Department of Defense and Veterans Affairs, ranging from 12 months to all on record, depending upon the facility. Vital Sign Value Date Comments Source SYSTOLIC BLOOD PRESSURE 136 09/24/2024 08:20:00 [facility] DIASTOLIC BLOOD PRESSURE 89 09/24/2024 08:20:00 [facility] TEMPERATURE 98.2 09/24/2024 08:20:00 [facility] PULSE 104 09/24/2024 08:20:00 [facility] SYSTOLIC BLOOD PRESSURE 147 09/10/2024 08:20:00 [facility] DIASTOLIC BLOOD PRESSURE 99 09/10/2024 08:20:00 [place] [facility] TEMPERATURE 98 09/10/2024 08:20:00 [place] [facility] PULSE 112 09/10/2024 08:20:00 [place] [facility] SYSTOLIC BLOOD PRESSURE 142 08/26/2024 09:20:00 [place] [facility] DIASTOLIC BLOOD PRESSURE 88 08/26/2024 09:20:00 [place] [facility] TEMPERATURE 98.3 08/26/2024 09:20:00 [place] [facility] PULSE 96 08/26/2024 09:20:00 [place] [facility] SYSTOLIC BLOOD PRESSURE 143 08/18/2024 08:00:00 [place] [facility] DIASTOLIC BLOOD PRESSURE 97 08/18/2024 08:00:00 [place] [facility] TEMPERATURE 98.3 08/18/2024 08:00:00 [place] [facility] PULSE 101 08/18/2024 08:00:00 [place] [facility] SYSTOLIC BLOOD PRESSURE 144 07/28/2024 08:00:00 [place] [facility] DIASTOLIC BLOOD PRESSURE 92 07/28/2024 08:00:00 [place] [facility] TEMPERATURE 98.2 07/28/2024 08:00:00 [facility] PULSE 84 07/28/2024 08:00:00 [facility] Encounters Combined list of: 1) Encounters from Department of Veterans Affairs facilities going backup to the last 18 months, not all VA inpatient encounters are included; 2) Encounters from the Department of Defense facilities going backup to 280 months. Location Location Details Encounter Type Encounter Number Reason For Visit Attending Provider ADM Date DC Date Status Disposition Source [facility] OFFICE O/P EST MOD 30 MIN [id number] Diagnos is: ICD-10- CM J30.9 Allergi c rhiniti s, unspeci Frantz Pina 04/04 [facility] [place] [facility] POS AIRWAY PRESSURE CPAP [id number] Diagnos is: ICD-10- CM G47.33 Obstruc tive sleep apnea (adult) (pediat charley) CHRIS GARCIA 02/23 /2024 [place] [facility] CHIROPRACT MANJ 3-4 REGIONS [id number] [id number] Diagnos is: ICD-10- CM M99.01 Segment al and somatic dysfunc tion of cervica l region NEHEMIAH GONZALEZ E [facility] OFFICE O/P EST MOD 30 MIN [id number] [id number] Diagnos is: ICD-10- CM E11.9 Type 2 diabete s mellitu s without complic ations Frantz GALDAMEZ 04/17 [facility] CH[place]RACT MANJ 3-4 REGIONS [id number] [id number] Diagnos is: ICD-10- CM M99.01 Segment al and somatic dysfunc tion of cervica l region NEHEMIAH GONZALEZ E 04/29 [facility] Outpatient Encounter [id number] 05/09 [facility] Outpatient Encounter [id number] 05/13 [facility] Outpatient Encounter [id number] 05/16 [facility] MANJ 3-4 REGIONS [id number] Diagnos is: ICD-10- CM M99.01 Segment al and somatic dysfunc tion of cervica l region NEHEMIAH GONZALEZ E 05/27 [facility] CH[place]CT MANJ 3-4 REGIONS [id number] [id number] Diagnos is: ICD-10- CM M99.01 Segment al and somatic dysfunc tion of cervica l region NEHEMIAH GONZALEZ E 06/10 [facility] Outpatient Encounter [id number] 06/20 [facility] CHIROPRACT MANJ 3-4 REGIONS [id number] [id number] Diagnos is: ICD-10- CM M99.01 Segment al and somatic dysfunc tion of cervica l region NEHEMIAH GONZALEZ E 06/24 [facility] 3-4 REGIONS 04044-9.65 [id number] Diagnos is: ICD-10- CM M99.01 Segment al and somatic dysfunc tion of cervica l region NEHEMIAH GONZALEZ E 07/08 [facility] Outpatient Encounter [id number] 07/14 [facility] CHIROPRACT MANJ 3-4 REGIONS [id number] [id number] Diagnos is: ICD-10- CM M99.01 Segment al and somatic dysfunc tion of cervica l region NEHEMIAH GONZALZE E 07/22 [facility] CH[place]RACT MANJ 3-4 REGIONS [id number] [id number] Diagnos is: ICD-10- CM M99.01 Segment al and somatic dysfunc tion of cervica l region NEHEMIAH GONZALEZ E 08/20 [facility] CH[place]RACT MANJ 3-4 REGIONS [id number] [id number] Diagnos is: ICD-10- CM M99.01 Segment al and somatic dysfunc tion of cervica l region NEHEMIAH GONZALEZ E 09/02 [facility] Outpatient Encounter [id number] 09/17 [facility] [place] [facility] COMPRE [place]AM [place] 1/ 84935-7.65 [id number] Diagnos is: ICD-10- CM E11.9 Type 2 diabete s mellitu s without complic ations EWA VEGA LER N 09/24 [place] [facility] [place] [facility] [place]CT MANJ 3-4 REGIONS [id number] [id number] Diagnos is: ICD-10- CM M99.01 Segment al and somatic dysfunc [facility]ion [facility] NEHEMIAH GONZALEZ E 09/30 [facility] [place] [facility] Outpatient Encounter [id number] EWA VEGA LER N 10/02 [place] [facility] [place] [facility] OFF/OP EST JUNE X REQ PHY/QHP [id number] [id number] Diagnos is: ICD-10- CM W57.XXX A Bit/gage ng by nonveno m insect and oth nonveno m arthrop ods, init HAYLEY,YOLI BYRON R 10/03 [facility] [place] MAN 3-4 REGIONS [id number] [id number] Diagnos is: ICD-10- CM M99.01 Segment al and somatic dysfunc tion of cervica l region NEHEMIAH GONZALEZ 10/16 [facility] OFFICE O/P EST MOD 30 MIN [id number] [id number] Diagnos is: ICD-10- CM E11.9 Type 2 diabete s mellitu s without complic ations Frantz GALDAMEZ 10/20 [facility] [place] [facility] QNHP OL DIG ASSMT&MGMT 5-10 [id number] [id number] Diagnos is: ICD-10- CM E11.9 Type 2 diabete s mellitu s without complic ations YVES NOEL V 10/20 [place] [facility] [place] [facility] [place] MANJ 3-4 REGIONS [id number] [id number] Diagnos is: ICD-10- CM M99.01 Segment al and somatic dysfunc tion of cervica l region NEHEMIAH GONZALEZ E 10/28 [facility] OFF/OP EST JUNE X REQ PHY/QHP [id number] [id number] Diagnos is: ICD-10- CM E11.9 Type 2 diabete s mellitu s without complic ations YOLI HARDY BYRON R 10/28 [facility] Outpatient Encounter [id number] [id number] 11/04 [facility] Encounter [id number] 11/10 [facility] MANJ 3-4 REGIONS [id number] [id number] Diagnos is: ICD-10- CM M99.01 Segment al and somatic dysfunc tion of cervica l region NEHEMIAH GONZALEZ E 11/12 [facility] 3-4 REGIONS [id number] [id number] Diagnos is: ICD-10- CM M99.01 Segment al and somatic dysfunc tion of cervica l region NEHEMIAH GONZALEZ E 11/25 [facility] 3-4 REGIONS [id number] [id number] Diagnos is: ICD-10- CM M99.01 Segment al and somatic dysfunc tion of cervica l region NEHEMIAH GONZALEZ E 12/09 [facility] 3-4 REGIONS [id number] [id number] Diagnos is: ICD-10- CM M99.01 Segment al and somatic dysfunc tion of cervica l region NEHEMIAH GONZALEZ E 12/18 [facility] Outpatient Encounter [id number] [id number] 12/18 [facility] Outpatient Encounter [id number] [id number] 12/30 [facility] OFF/OP EST JUNE X REQ PHY/QHP [id number] [id number] Diagnos is: ICD-10- CM R52 Pain, unspeci fied Chato MARTINEZ 12/30 [facility] Outpatient Encounter [id number] [id number] 12/31 [facility] Outpatient Encounter [id number] [id number] 01/01 [facility] Outpatient Encounter [id number] [id number] YOLIETAWNYA ADAMS A 01/01 [facility] Outpatient Encounter [id number] [id number] 01/06 [facility] [place] MANJ 1-2 REGIONS [id number] [id number] Diagnos is: ICD-10- CM M99.01 Segment al and somatic dysfunc tion of cervica l region NEHEMIAH GONZALEZ 01/13 [facility] Outpatient Encounter [id number] 01/16 [facility] [place] 3-4 REGIONS [id number] [id number] Diagnos is: ICD-10- CM M99.01 Segment al and somatic dysfunc tion of cervica l region NEHEMIAH GONZALEZ 01/27 [facility] Outpatient Encounter [id number] [id number] 02[facility]18 [facility] Outpatient Encounter [id number] [id number] 02/23 [facility] Outpatient Encounter [id number] [id number] 02/24 [facility] Outpatient Encounter [id number] [id number] 02/24 [facility] Outpatient Encounter [id number] [id number] 02/27 [facility] Outpatient Encounter [id number] [id number] 02/27 [facility] Outpatient Encounter [id number] [id number] 03/05 [facility] CB [place]CT MANJ 1-2 REGIONS [id number] [id number] Diagnos is: ICD-10- CM M99.01 Segment al and somatic dysfunc tion of cervica l region NEHEMIAH GONZALEZ RENATO E 03/17 [facility] Encounter [id number] [id number] 04/01 [facility] Outpatient Encounter [id number] [id number] 04/08 [facility] [place] MANJ 1-2 REGIONS [id number] [id number] Diagnos is: ICD-10- CM M99.01 Segment al and somatic dysfunc tion of cervica l region NEHEMIAH GONZALEZ E 04/14 [facility] Outpatient Encounter [id number] [id number] Chato MARTINEZ WAN JADE 05/04 [facility] Outpatient Encounter [id number] [id number] 05/05 [facility] OFF/OP EST JUNE X REQ PHY/QHP [id number] Diagnos is: ICD-10- CM I10 Essenti al (primar y) hyperte nsion BUSTOS,AN MARJORIE D 05/15 [facility] CB OFFICE O/P EST MOD 30 MIN [id number] Diagnos is: ICD-10- CM E11.9 Type 2 diabete s mellitu s without complic ations Frantz GALDAMEZ 05/26 [facility] Outpatient Encounter [id number] [id number] 05/26 [facility] Outpatient Encounter [id number] [id number] 06/02 [facility] MTMS BY PHARM COMBUSTION ENGINEER 15 MIN [id number] [id number] Diagnos is: ICD-10- CM R04.0 Epistax is YVES NOEL V 06/03 [facility] Outpatient Encounter [id number] [id number] 06/04 [facility] Outpatient Encounter [id number] [id number] 06/12 [facility] Outpatient Encounter [id number] 06/19 [facility] CHIROPRACT MANJ 3-4 REGIONS [id number] Diagnos is: ICD-10- CM M99.01 Segment al and somatic dysfunc tion of cervica l region NEHEMIAH GONZALEZ E 06/23 [facility] OFF/OP EST JUNE X REQ PHY/QHP [id number] Diagnos is: ICD-10- CM S20.96X A Insect bite (nonven omous) of unsp parts of thorax, init CUSTRED,TO RRI J 06/30 [facility] CH[place]OPRACT MANJ 3-4 REGIONS [id number] [id number] Diagnos is: ICD-10- CM M99.01 Segment al and somatic dysfunc tion of cervica l region NEHEMIAH GONZALEZ 07/14 [facility] Outpatient Encounter [id number] 07/14 [facility] [place] [facility] PSYTX W PT 60 MINUTES [id number] [id number] Diagnos is: ICD-10- CM F43.10 Post-tr aumatic stress disorde r, unspeci fied Iggy EVANS 07/21 [place] [facility] CHIROPRACT MANJ 3-4 REGIONS [id number] [id number] Diagnos is: ICD-10- CM M99.01 Segment al and somatic dysfunc tion of cervica l region NEHEMIAH GONZALEZ 07/28 [facility] CH[place]CT MANJ 3-4 REGIONS [id number] [id number] Diagnos is: ICD-10- CM M99.01 Segment al and somatic dysfunc tion of cervica l region NEHEMIAH GONZALEZ 08/18 [facility] [place] [facility] PSYCH DIAGNOSTIC EVALUATION [id number] [id number] Diagnos is: ICD-10- CM F43.10 Post-tr aumatic stress disorde r, unspeci Iggy Moreno SAIMA VITOR 08/24 [place] [facility] CHIR[place]RACT MANJ 3-4 REGIONS [id number] [id number] Diagnos is: ICD-10- CM M99.01 Segment al and somatic dysfunc tion of cervica l region NEHEMIAH GONZALEZ 08/26 [facility] [place] [facility] PSYTX W PT 60 MINUTES [id number] [id number] Diagnos is: ICD-10- CM F43.10 Post-tr aumatic stress disorde r, unspeci Iggy Moreno SAIMA VITOR 08/31 [place] [facility] [place] [facility] Outpatient Encounter [id number] 09/07 [place] [facility] CHIROPRACT MANJ 3-4 REGIONS [id number] [id number] Diagnos is: ICD-10- CM M99.01 Segment al and somatic dysfunc tion of cervica l region NEHEMIAH GONZALEZ 09/10 [facility] Outpatient Encounter [id number] 09/16 [facility] CHIROPRACT MANJ 3-4 REGIONS [id number] [id number] Diagnos is: ICD-10- CM M99.01 Segment al and somatic dysfunc tion of cervica l region NEHEMIAH GONZALEZ 09/24 [facility] Social History Combined list of available smoking, tobacco, and other social history from Department of Defense and Veterans Affairs facilities. Social History Type Response Date Comment Sourc e Tobacco smoking status NHIS VA-TOBACCO FORMER USER 10[facility]21/[facility] History of tobacco use VA-TOBACCO QUIT 1 5 YRS OR MORE 10/21/2023 [facility] History of tobacco use VA-TOBACCO FORMER USER 05/30/2022 [facility] History of tobacco use VA-TOBACCO FORMER USER 05/04/2021 [facility] History of tobacco use VA-TOBACCO FORMER USER 04/12/2020 [facility] History of tobacco use VA-TOBACCO FORMER USER 07/09/2017 [facility] History of tobacco use PREVIOUS SMOKER 12/07/2015 [facility] History of tobacco use PREVIOUS SMOKER 10/22/2014 [facility] History of tobacco use QUIT TOBACCO >7 Y EARS AGO 03/19/2012 [facility] Plan of Care List of future care activities from Department of Veterans Affairs facilities. Additional future care activities may be listed in the Assessment and Plan section. Date/Time Care Activity Care Activity Detail Facili ty 09/30/2024 AMBULATORY - MEDICINE AMBULATORY - MEDICI [facility]
[2024-09-25 09:56] VITALS: BP 151/92; PULSE 102; RESP 16; TEMP 36.5; O2SAT 96
--- OUTSIDE RECORDS SUMMARY | 2024-09-25 09:59 | XMS_ITS | Clinical Summary ---
Author Organization [facility] Address [address] [place] [address] Care Team Providers Care Child Care Director Name Role Phone Unavailable Primary Care Provider Unavailabl e Allergies Active Allergy Reactions Criticality Noted Date Comments Metformin Diarrhea,Other (See Comments) Low 10/22/2014 Unknown reaction Penicillins Unknown 07/05/2022 Medications atorvastatin (LIPITOR) 80 mg tablet Take 80 mg by mouth. 4 Active citalopram hydrobromide (CITALOPRAM ORAL) Active Cholecalciferol, Vitamin D3, 50 mcg (2,000 unit) Capsule Take 4,000 Units by mouth daily. Active empagliflozin (JARDIANCE) 25 mg tablet Take 25 mg by mouth. 4 Active glimepiride (AMARYL) 4 mg tablet Take 8 mg by mouth. 4 Active glipiZIDE (GLUCOTROL) 5 mg tablet Take 5 mg by mouth. Active lisinopriL (PRINIVIL) 20 mg tablet Take 20 mg by mouth daily. Active omeprazole (PriLOSEC) 20 mg Capsule, Delayed Release(E.C.) Take 20 mg by mouth daily before breakfast. 4 Active rOPINIRole (REQUIP) 2 mg Tablet Take 2 mg by mouth. 4 Active semaglutide 0.25 mg or 0.5 mg (2 mg/3 mL) Pen Injector Inject by subcutaneous injection. 4 Active tamsulosin (FLOMAX) 0.4 mg capsule Take 0.4 mg by mouth. 4 Active traMADoL (ULTRAM) 50 mg tablet TAKE ONE TABLET BY MOUTH EVERY 6 HOURS NEEDED FOR PAIN for 10 DAYS 5 Active vitamin D3-vitamin K2, MK4, 1,000-100 unit-mcg Tablet Acti ve naloxone (NARCAN) 4 mg/spray [place], Non-Aerosol EMERGENCY USE ONLY: Administer 1 spray (4 mg) in one nostril one time. May repeat in alternating nostrils every 2-3 minutes until responsive or EMS arrives. 2 Each 3 5 Active Active Problems Problem Noted Date Diagnosed Date Inguinal hernia 04/03/2024 Encounters Date Type Department Care Team Description 07/01/2024 External Device Data [facility] ABSTRACTION Provider, Abstract 06/30/2024 External Device Data [facility] Provider, Abstract from Last 3 Months Social History Tobacco Use Types Packs/Day Years Used Date Smoking Tobacco: Never Tobacco Cessation:Counseling Given: Not Answered Alcohol Use Standard Drinks/Week Comments Yes 0 (1 standard drink = 0.6 oz pur e alcohol) occasionally Sex and Gender Information Value Date Recorded Sex Assigned at Not on file Legal Sex Male 11:29 AM CDT Gender Identity Not on file Sexual Orientation Not on file Last Filed Vital Signs Vital Sign Reading Time Taken Comments Blood Pressure 130/80 05/12/2024 9:19 AM CDT Pulse 100 05/12/2024 9:19 AM CDT Temperature 36.5 C (97.7 F) 04/22/2024 1:06 PM CDT Respiratory Rate 17 05/12/2024 9:19 AM CDT Oxygen Saturation 98% 05/12/2024 9:19 AM CDT Inhaled Oxygen Concentration - - Weight 119.7 kg (264 lb) 05/12/2024 9:19 AM CDT Height 175.3 cm (5' 9 ) 05/12/2024 9:19 AM CDT Body Mass Index 38.99 05/12/2024 9:19 AM CDT Plan of Treatment Health Maintenance Due Date Last Done Comments DIABETES ANNUAL FOOT EXAM 05/25/1989 DIABETES MICROALBUMIN ANNUAL SCREEN 05/25/1989 LDL CHOLESTEROL ANNUAL 05/25/1989 HEPATITIS B VACCINES (1 of 3 - 19+ 3-dose series) 05/12 FIT-DNA Q 3 years 05/25/2016 FIT/FOBT Q 1 year 05/25/2016 Flex Sig/CT Colonography Q 5 years 05/25/2016 ZOSTER VACCINE (1 of 2) 05/25/2021 INFLUENZA VACCINE (#1) 2024 DIABETES ANNUAL RETINAL EXAM 09/24/2024 09/25/2023 DIABETES HBA1C Q 6 MONTHS 10/05/2024 04/07/2024 COLORECTAL SCREENING 04/16/2028 04/16/2018 Colorectal Cancer Screening 04/16/2028 DTAP/TDAP/TD VACCINES (2 - Td or Tdap) 10/23/2032 Medical Devices Implanted Type Area Mascara Molder Device Identifier Shelf Expiration Date Model / Serial / Lot Mesh Parietex Progrip Flat Sht [id number] - [id number] Implanted:Qty : 1 on 04/22/2024 by Jase Cope DO at [facility] Mesh Left: Inguinal [employer] - [employer] [id number] 11/10/2028 [id number] / / [id number] Procedures Procedure Name Priority Date/Time Associated Diagnosis Comments HEMOGLOBIN A1C Routine 04/07/2024 9:39 AM [employer]YSTER GRADER Surgical procedure, elective from Last 3 Months or Most Recently Relevant to Health Maintenance Results * (ABNORMAL) HEMOGLOBIN A1C (04/07/2024 9:39 AM OYSTER GRADER) HEMOGLOBIN A1C 8.3(H) <5.7 % of total Hgb [facility] Comment: For someone without known diabetes, a hemoglobin A1c value of 6.5% or greater indicates that they may have diabetes and this should be confirmed with a follow-up test. For someone with known diabetes, a value <7% indicates that their diabetes is well controlled and a value greater than or equal to 7% indicates suboptimal control. A1c targets should be individualized based on duration of diabetes, age, comorbid conditions, and other considerations. Currently, no consensus exists regarding use of hemoglobin A1c for diagnosis of diabetes for children. ESTIMATED AVERAGE GLUCOSE (MG/DL) 192 mg/dL [facility] ESTIMATED AVERAGE GLUCOSE (MMOL/L) 10.6 mmol/L [facility] Comment: Test Performed at: [facility] [place] [address] [facility] [place] [address] Sean Ch MD Blood 04/07/2024 9:39 AM [employer]YSTER GRADER 04/07/2024 9:39 AM [employer]YSTER GRADER Jase Maloney MD CHEMISTRY ORDERABLES Julianna l Result [facility] [phone] [facility] [address] [facility] [place] [address] from Last 3 Months or Most Recently Relevant to Health Maintenance Insurance RX [facility] [employer] [place] [address] [employer] * Guarantor: [facility] Account Type Relation to Patient Date of Phone Billing Address Corporate Other DEFAULT ADDRESS [address] [employer] [address] [place] [address] [address] [place] [address] Advance Directives For more information, please contact: [phone] * Full Code (Latest Code Status on File) Date Activated Date Inactivated Comments 04/22/2024 8:19 AM 04/22/2024 3:31 PM * Full Code Date Activated Date Inactivated Comments 04/22/2024 6:04 AM 04/22/2024 8:19 AM
[2024-09-25 11:32] VITALS: BP 123/95; O2SAT 98
--- NOTE | 2024-09-25 11:34 | CT_ITS ---
WS: [id number] CT ABDOMEN PELVIS TECHNIQUE: Contrast-enhanced CT of the abdomen and pelvis with coronal and sagittal reformatted images. CLINICAL INFORMATION: abd pain COMPARISON: 12/31/2023 DLP: 1248.[address] scans at [facility] use at least one of these dose optimization techniques: automated exposure control; mA and/or kV adjustment per patient size (includes targeted exams where dose is matched to clinical indication); or iterative reconstruction. FINDINGS: No evidence of recurrent inguinal hernia. Sigmoid diverticulosis. No evidence of acute diverticulitis. Enlarged fatty liver. Normal portal vein and splenic vein. Normal spleen. Small splenule. Small esophageal hiatal hernia. Normal caliber abdominal aorta. Celiac and SMA are patent. Adrenal glands are normal. Normal renal parenchymal enhancement. No hydronephrosis. Small fat-containing umbilical hernia. Diffuse bladder wall thickening can be seen with chronic cystitis. Bladder is partially decompressed. CT/CT abdomen pelvis w con* [id number] IMPRESSION: 1. No evidence of recurrent inguinal hernia. 2. Sigmoid diverticulosis. No evidence of acute diverticulitis. 3. Diffuse bladder wall thickening can be seen with chronic cystitis. Bladder is partially decompressed. 4. Enlarged fatty liver 5. No other acute findings.
--- NOTE | 2024-09-25 11:34 | W.ED.ABDPA2 ---
HPI - Abdominal Pain General: Chief Complaint: Abdominal Pain Stated Complaint: L Side Pain Time Seen by Provider: 09/25/24 11:23 Source: patient Mode of arrival: ambulatory Limitations: no limitations History of Present Illness: 54-year-old male states he had a left inguinal hernia repair back in April. He states that over the last 2 weeks he has been having abdominal pain he states it is worse with movement and palpation states that he has no pain currently at rest. He denies any fevers she denies any vomiting or diarrhea. Associated Symptoms: Denies chills, diarrhea, fever(s), nausea and vomiting Related Data Home Medications ?Medication ?Instructions ?Recorded ?Confirmed apple cider vinegar 300 mg tablet 300 mg PO DAILY 03/18/23 03/06/24 ascorbic acid (vitamin C) 500 mg 500 mg PO DAILY 03/18/23 03/06/24 tablet atorvastatin 80 mg tablet 80 mg PO QPM 03/18/23 03/06/24 azelastine 137 mcg (0.1 %) nasal 1 spray intranasal BID 03/18/23 03/06/24 spray cholecalciferol (vitamin D3) 25 25 mcg PO DAILY 03/18/23 03/06/24 mcg (1,000 unit) tablet (Vitamin D3) citalopram 40 mg tablet 40 mg PO DAILY 03/18/23 03/06/24 empagliflozin 25 mg tablet 25 mg PO DAILY 03/18/23 03/06/24 ezetimibe 10 mg tablet 10 mg PO DAILY 03/18/23 03/06/24 fexofenadine 180 mg tablet 180 mg PO DAILY 03/18/23 03/06/24 fluticasone propionate 50 2 spray intranasal DAILY 03/18/23 03/06/24 mcg/actuation nasal spray,suspension lisinopril 40 mg tablet 20 mg PO DAILY 03/18/23 03/06/24 magnesium oxide 400 mg PO DAILY 03/18/23 03/06/24 omeprazole 20 mg capsule,delayed 20 mg PO QAM 03/18/23 03/06/24 release ropinirole 2 mg tablet 2 mg PO BEDTIME 03/18/23 03/06/24 tamsulosin 0.4 mg capsule 0.4 mg PO QPM 03/18/23 03/06/24 turmeric 400 mg capsule 400 mg PO DAILY 03/18/23 03/06/24 semaglutide 0.25 mg or 0.5 mg (2 mg SUBCUT .1x a week 01/07/24 03/06/24 mg/3 mL) subcutaneous pen injector (Ozempic) glimepiride 4 mg tablet 8 mg PO QAM 02/19/24 03/06/24 Previous Rx's ?Medication ?Instructions ?Recorded lorazepam 2 mg tablet (Ativan) 2 mg PO Q6H PRN dizziness #14 tabs 03/18/23 Allergies Allergy/AdvReac Type Severity Reaction Status Date / Time Penicillins Allergy ALGY-Anaphy Verified 03/06/24 10:06 laxis Review of Systems Const: Denies: fever(s), chills, body aches or change in appetite ENMT: Denies: throat pain or dental pain Card: Denies: chest pain Resp: Denies: dyspnea GI: Reports: abdominal pain; Denies: nausea, vomiting or diarrhea Musc: Denies: neck pain or back pain Skin/Breast: Denies: rash Neuro: Denies: headache(s) PFSH ED PFSH: Family History Mother Cancer skin Father Cancer Social History Smoking and tobacco/nicotine status: never used tobacco/nicotine Alcohol intake: current Alcohol intake frequency: holidays/special occasions only Physical Exam Const: COMMON NORMALS: no acute distress, patient oriented x3 and healthy appearing HENMT: COMMON NORMALS: normocephalic and atraumatic HEAD & SCALP: normocephalic and atraumatic Eye: COMMON NORMALS: conjunctivae normal CONJUNCTIVA: Yes conjunctivae normal Neck/C-Spine: COMMON NORMALS: full ROM and supple Chest: COMMONS NORMALS: normal inspection of the chest Resp: COMMON NORMALS: normal respiratory effort, No retractions, No use of accessory muscles and clear to auscultation bilaterally AUSCULTATION: clear to auscultation bilaterally Cardio: COMMON NORMALS: regular rate, regular rhythm and No murmurs present (Cardio) RATE: regular rate RHYTHM: regular rhythm GI: COMMON NORMALS: Normal to inspection, nondistended, normoactive bowel sounds present, Soft to palpation and no masses PALPATION: Yes Soft to palpation and Yes Tenderness to palpation present (GI) Details: LLQ Extremity: COMMON NORMALS: normal to inspection and full ROM Neuro: COMMON NORMALS: patient oriented x3, moves all extremities and no focal motor deficits Psych: COMMON NORMALS: mental status grossly normal, Normal thought process present and cooperative THOUGHT PROCESS: Normal thought process present Skin: COMMON NORMALS: no rashes or lesions noted and no wounds GENERAL SKIN EXAM: no rashes or lesions noted Course Vital Signs: Vital signs: Vital Signs Temperature 97.7 F 09/25/24 09:56 Pulse Rate 102 H 09/25/24 09:56 Respiratory Rate 16 09/25/24 09:56 Blood Pressure 173/119 09/25/24 12:05 Pulse Oximetry 97 09/25/24 12:05 Oxygen Delivery Me thod Room Air 09/25/24 09:56 MDM - Abdominal Pain Medical Decision Making Patient presents here with abdominal pain imaging blood work here is normal no signs of acute surgical abdomen he is well-appearing here he stable for discharge follow-up PCP return if worsening. Medical Records I reviewed the patient's medical records. Lab Data I reviewed the patient's lab results. 09/25/24 11:20 09/25/24 11:20 Labs/Radiology: Radiology Impressions Abdomen/Pelvis CT 09/25/24 11:34 IMPRESSION: 1. No evidence of recurrent inguinal hernia. 2. Sigmoid diverticulosis. No evidence of acute diverticulitis. 3. Diffuse bladder wall thickening can be seen with chronic cystitis. Bladder is partially decompressed. 4. Enlarged fatty liver 5. No other acute findings. Laboratory Results WBC 5.49 10^3/uL (3.29-11.43) 09/25/24 11:20 RBC 5.21 10^6/uL (3.85-5.65) 09/25/24 11:20 Hgb 16.30 g/dL (11.27-16.99) 09/25/24 11:20 Hct 46.9 % (37-53) 09/25/24 11:20 MCV 90.0 fl (82-101) 09/25/24 11:20 MCH 31.3 pg (27-33) 09/25/24 11:20 MCHC 34.8 g/dL (30-55) 09/25/24 11:20 RDW 11.9 % (12.1-15.1) L 09/25/24 11:20 Plt Count 223 10^3/cmm (157-399) 09/25/24 11:20 MPV 9.6 fL (7.4-10.4) 09/25/24 11:20 Neut % (Auto) 53.2 % 09/25/24 11:20 Lymph % (Auto) 31.7 % 09/25/24 11:20 [place] % (Auto) 11.5 % 09/25/24 11:20 Eos % (Auto) 2.9 % 09/25/24 11:20 Baso % (Auto) 0.5 % 09/25/24 11:20 Neut # (Auto) 2.92 10^3/uL (1.8-7.7) 09/25/24 11:20 Lymph # (Auto) 1.7 10^3/uL (0.8-4.8) 09/25/24 11:20 [place] # (Auto) 0.6 10^3/uL (0.2-0.9) 09/25/24 11:20 Eos # (Auto) 0.2 10^3/uL (0.0-0.8) 09/25/24 11:20 Baso # (Auto) 0.0 10^3/uL (0.0-0.1) 09/25/24 11:20 Nucleated RBC % (auto) 0 % 09/25/24 11:20 Nucleated RBCs # 0.0 /100WBC 09/25/24 11:20 Sodium 141 mmol/L (136-145) 09/25/24 11:20 Potassium 4.2 mmol/L (3.5-5.1) 09/25/24 11:20 Chloride 106 mmol/L (98-107) 09/25/24 11:20 Carbon Dioxide 22 mmol/L (22-29) 09/25/24 11:20 Anion Gap 17.2 (5-19) 09/25/24 11:20 BUN 11 mg/dL (6-20) 09/25/24 11:20 Creatinine 0.8 mg/dL (0.7-1.2) 09/25/24 11:20 GFR Calculation 101.1 mL/min (90-130) 09/25/24 11:20 Glucose 139 mg/dL (65-115) H 09/25/24 11:20 Calculated Osmolality 294 mOsm/kg (285-295) 09/25/24 11:20 Calcium 9.3 mg/dL (8.5-10.5) 09/25/24 11:20 Total Bilirubin 0.4 mg/dL (0.15-1.2) 09/25/24 11:20 AST 15 U/L (0-40) 09/25/24 11:20 ALT 29 U/L (0-41) 09/25/24 11:20 Alkaline Phosphatase 63 U/L (40-130) 09/25/24 11:20 Total Protein 6.9 g/dL (6.6-8.7) 09/25/24 11:20 Albumin 4.4 g/dL (3.5-5.2) 09/25/24 11:20 Globulin 2.5 g/dL (1.3-4.6) 09/25/24 11:20 Lipase 23 U/L (13-60) 09/25/24 11:20 Urine Color Yellow (Yellow) 09/25/24 11:40 Urine Appearance Clear (CLEAR) 09/25/24 11:40 Urine pH 5.5 (5-7) 09/25/24 11:40 Ur Specific [place] 1.027 (1.005-1.030) 09/25/24 11:40 Urine Protein Negative (Negative) 09/25/24 11:40 Urine Glucose (UA) 3+ (Normal) H 09/25/24 11:40 Urine Ketones Trace (Negative) 09/25/24 11:40 Urine Blood Negative (Negative) 09/25/24 11:40 Urine Nitrate Negative (Negative) 09/25/24 11:40 Urine Bilirubin Negative (Negative) 09/25/24 11:40 Urine Urobilinogen 1.0 mg/dL (Negative) 09/25/24 11:40 Ur Leukocyte Esterase Negative (Negative) 09/25/24 11:40 Amorphous Sediment Not Reportable 09/25/24 11:40 All radiology interpretation(s) finalized by discharge Discharge Plan Discharge Patient Disposition: Home Clinical Impression: Abdominal pain Condition: Stable Prescriptions: No Action Ozempic 0.25 mg or 0.5 mg (2 mg/3 mL) pen injector SUBCUT .1x a week atorvastatin 80 mg Tablet 80 mg PO QPM citalopram 40 mg Tablet 40 mg PO DAILY fexofenadine 180 mg Tablet 180 mg PO DAILY ascorbic acid (vitamin C) 500 mg Tablet 500 mg PO DAILY tamsulosin 0.4 mg Capsule 0.4 mg PO QPM ropinirole 2 mg Tablet 2 mg PO BEDTIME omeprazole 20 mg Capsule,Delayed Release(Dr/Ec) 20 mg PO QAM azelastine 137 mcg (0.1 %) Aerosol,[place] 1 spray INTRANASAL BID lisinopril 40 mg Tablet 20 mg PO DAILY fluticasone propionate 50 mcg/actuation [place],Suspension 2 spray INTRANASAL DAILY Rx Instructions: administer into each nostril ezetimibe 10 mg Tablet 10 mg PO DAILY cholecalciferol (vitamin D3) [Vitamin D3] 25 mcg (1,000 unit) Tablet 25 mcg PO DAILY apple cider vinegar 300 mg Tablet 300 mg PO DAILY empagliflozin 25 mg Tablet 25 mg PO DAILY magnesium oxide 400 mg magnesium Tablet 400 mg PO DAILY turmeric 400 mg Capsule 400 mg PO DAILY lorazepam [Ativan] 2 mg tablet 2 mg PO Q6H PRN (Reason: dizziness) Qty: 14 0RF glimepiride 4 mg Tablet 8 mg PO QAM Rx Instructions: administer with breakfast Discharge Orders: Discharge ED (Routine); Ordered 09/25/24 Ordered By: Mikhail Bill Referrals: Aura Mendez MD [Primary Care Provider, Family Practice] - 4-7 days Discharge Diet: Advance as tolerated Discharge Activity: Resume usual activity Patient Instructions: Abdominal Pain (ED) Print Language: [place] Citizen Coding Level of Care Code ED Ben Day Artist for Vishnu Daugherty
[2024-09-25 11:40] LABS: Hematocrit 46.9 % (37-53); Hemoglobin 16.30 g/dL (11.27-16.99); Mean Corpuscular HGB Conc 34.8 g/dL (30-55); Mean Corpuscular Hemoglobin 31.3 pg (27-33); Mean Corpuscular Volume 90.0 fl (82-101); Nucleated Red Blood Cells % 0 %; Platelet Count 223 10^3/cmm (157-399); Red Blood Count 5.21 10^6/uL (3.85-5.65); White Blood Count 5.49 10^3/uL (3.29-11.43)
--- NOTE | 2024-09-25 11:45 | PC.PHAR ---
[facility] 09/25/24 11:45am-last med rec completed in March
[2024-09-25] MEDS: iohexol 350 mg/mL 500 mL Btl (per mL) IV (11:49)
[2024-09-25 11:58] LABS: Add Urine Microscopic? NO
[2024-09-25 12:02] LABS: Glucose Urine UA 3+ (Normal); Nitrate Urine Negative (Negative); Specific Gravity, Urine 1.027 (1.005-1.030)
[2024-09-25 12:04] LABS: Alanine Aminotransferase 29 U/L (0-41); Albumin Level 4.4 g/dL (3.5-5.2); Alkaline Phosphatase 63 U/L (40-130); Anion Gap 17.2 (5-19); Aspartate Amino Transferase 15 U/L (0-40); Blood Urea Nitrogen 11 mg/dL (6-20); Calcium 9.3 mg/dL (8.5-10.5); Carbon Dioxide 22 mmol/L (22-29); Chloride 106 mmol/L (98-107); Creatinine Clr Calc Pharmacy 135.3237; Globulin 2.5 g/dL (1.3-4.6); Glucose 139 mg/dL (65-115); Lipase 23 U/L (13-60); Osmolality Calculated 294 mOsm/kg (285-295); Potassium 4.2 mmol/L (3.5-5.1); Sodium 141 mmol/L (136-145); Total Protein 6.9 g/dL (6.6-8.7)
[2024-09-25 12:05] VITALS: BP 173/119; O2SAT 97
[2024-09-25 12:38] VITALS: BP 145/101; O2SAT 94
[2024-09-25 12:41] LABS: Charge for UA Resulting for Rev
[2024-09-25 13:26] VITALS: BP 162/94; PULSE 78; RESP 16; O2SAT 100
== END 2024-09-25 13:25 | disposition home or self-care (01) ==
PROVIDERS: Emergency Provider Emergency Medicine; PCP Family Medicine
DX: R10.9 Unspecified abdominal pain (principal)
CPT/HCPCS: 36415; 74177; 80053; 81003; 83690; 85025; 96360; 99285; J7030

== ENCOUNTER → 2024-12-07 09:47 | Outpatient (BNVA) | payer OTHER, SELFPAY | PROVIDERS: PCP Family Medicine; Visit Provider Orthopaedic Surgery | DX: M19.011 Primary osteoarthritis, right shoulder (principal); M19.012 Primary osteoarthritis, left shoulder | CPT/HCPCS: 20610; 99204; J3301; J3490; J9999 ==

== ENCOUNTER 2025-01-05 07:35 | Outpatient (RCR) | payer OTHER, SELFPAY | END 2025-01-10 23:59 | disposition home or self-care (01) | LOC: SPT 07:35 | PROVIDERS: Visit Provider Orthopaedic Surgery | DX: M25.511 Pain in right shoulder (principal); M25.512 Pain in left shoulder | CPT/HCPCS: 97110; 97161 ==

== ENCOUNTER 2025-01-11 05:00 | Outpatient (RCR) | payer OTHER, SELFPAY | END 2025-02-10 23:59 | disposition home or self-care (01) | LOC: SPT 05:00 | PROVIDERS: Visit Provider Orthopaedic Surgery | DX: M25.511 Pain in right shoulder (principal); M25.512 Pain in left shoulder; G89.29 Other chronic pain | CPT/HCPCS: 99213 ==